=== PATIENT | female | born 1965 | race Caucasian/White ===

== ENCOUNTER 2019-07-07 09:06 | Outpatient (CLI) | payer OTHER, SELFPAY ==
[2019-07-07 09:21] LABS: Basophils Absolute Auto 0.07 K/mm3 (0.00-0.10); Basophils Percent Auto 0.7 % (0.0-1.0); Eosinophils Absolute Auto 0.37 K/mm3 (0.02-0.50); Eosinophils Percent Auto 3.8 % (1.0-6.0); Hematocrit 41.5 % (35.0-49.0); Hemoglobin 12.9 g/dL (12.0-15.0); Immature Granulocyte Absolute 0.04 K/mm3 (0.00-0.00); Immature Granulocyte Percent A 0.4 % (0.0-0.0); Lymphocytes Absolute Auto 1.73 K/mm3 (1.10-4.50); Lymphocytes Percent Auto 17.9 % (18.0-42.0); Mean Corpuscular HGB Conc 31.1 g/dL (32.0-36.0); Mean Corpuscular Hemoglobin 26.7 pg (27.0-31.0); Mean Corpuscular Volume 85.9 fL (78.0-102.0); Mean Platelet Volume 10.1 fl (9.2-11.8); Monocytes Absolute Auto 0.54 K/mm3 (0.10-0.90); Monocytes Percent Auto 5.6 % (2.0-11.0); Neutrophils Absolute Auto 6.9 K/mm3 (1.7-7.2); Neutrophils Percent Auto 71.6 % (50.0-70.0); Platelet Count Result 325 K/mm3 (150-420); Red Blood Count 4.83 M/mm3 (4.20-5.40); Red Cell Distribution Width 14.4 % (11.6-14.4); White Blood Count 9.7 K/mm3 (4.8-10.8)
[2019-07-07 10:33] LABS: Alanine Aminotransferase 20 U/L (14-59); Albumin Level 3.5 g/dL (3.4-5.0); Alkaline Phosphatase 65 U/L (46-116); Anion Gap 15.4 mmol/L (7-16); Aspartate Amino Transferase 15 U/L (15-37); Bilirubin,Total 0.3 mg/dL (0.00-1.00); Blood Urea Nitrogen 11 mg/dL (7-18); Calcium 8.8 mg/dL (8.5-10.1); Carbon Dioxide 31 mmol/L (21-32); Chloride 101 mmol/L (98-108); Cholesterol 145 mg/dL (0-200); Estimated Glomerular Filt Rate > 60; Glucose 146 mg/dL (70-99); HDL Direct 54 mg/dL (40-60); LDL Cholesterol Calculated 68 mg/dL (<130); Osmolality Calculated 298 mOsm/kg (285-295); Potassium 4.4 mmol/L (3.5-5.1); Sodium 143 mmol/L (136-145); Thyroid Stimulating Hormone 2.54 uIU/mL (0.36-3.74); Total Protein 7.3 g/dL (6.4-8.2); Triglycerides 117 mg/dL (0-150)
[2019-07-10 08:35] LABS: Vitamin D 25 Hydroxy 62 ng/mL (30-100)
== END 2019-07-07 09:07 | disposition home or self-care (01) ==
PROVIDERS: PCP Internal Medicine; Visit Provider Internal Medicine
DX: E78.49 Other hyperlipidemia (principal); I10 Essential (primary) hypertension; E11.42 Type 2 diabetes mellitus with diabetic polyneuropathy; E55.9 Vitamin D deficiency, unspecified
CPT/HCPCS: 36415; 80053; 80061; 82306; 83036; 84443; 85025

== ENCOUNTER 2019-11-22 15:12 | Outpatient (CLI) | payer OTHER, SELFPAY ==
--- NOTE | 2019-11-22 15:30 | ECG_ITS ---
Measurements Intervals [place] Rate: 95 P: 56 IA: 180 QRS: -12 QRSD: 86 T: 41 QT: 348 QTc: 438 Interpretive Statements SINUS RHYTHM LOW QRS VOLTAGE IN PRECORDIAL LEADS CANNOT RULE OUT SEPTAL INFARCT, AGE INDETERMINATE INFERIOR INFARCT, AGE INDETERMINATE BASELINE ARTIFACT- II, III, AVF ABNORMAL ECG Electronically Signed On 11-22-2019 15:35:11 CDT by Jimmy Echavarria D.O.
[2019-11-23 07:10] LABS: Basophils Absolute Auto 0.09 K/mm3 (0.00-0.10); Basophils Percent Auto 1.2 % (0.0-1.0); Eosinophils Absolute Auto 0.46 K/mm3 (0.02-0.50); Eosinophils Percent Auto 6.2 % (1.0-6.0); Hematocrit 37.7 % (35.0-49.0); Hemoglobin 11.7 g/dL (12.0-15.0); Immature Granulocyte Absolute 0.03 K/mm3 (0.00-0.00); Immature Granulocyte Percent A 0.4 % (0.0-0.0); Lymphocytes Absolute Auto 2.36 K/mm3 (1.10-4.50); Lymphocytes Percent Auto 31.8 % (18.0-42.0); Mean Corpuscular Hemoglobin 26.8 pg (27.0-31.0); Mean Corpuscular Volume 86.3 fL (78.0-102.0); Mean Platelet Volume 9.8 fl (9.2-11.8); Monocytes Absolute Auto 0.59 K/mm3 (0.10-0.90); Monocytes Percent Auto 7.9 % (2.0-11.0); Neutrophils Absolute Auto 3.9 K/mm3 (1.7-7.2); Neutrophils Percent Auto 52.5 % (50.0-70.0); Platelet Count Result 379 K/mm3 (150-420); Red Blood Count 4.37 M/mm3 (4.20-5.40); Red Cell Distribution Width 13.3 % (11.6-14.4); White Blood Count 7.4 K/mm3 (4.8-10.8)
[2019-11-23 08:11] LABS: Alanine Aminotransferase 23 U/L (14-59); Albumin Level 3.3 g/dL (3.4-5.0); Alkaline Phosphatase 59 U/L (46-116); Anion Gap 8 mmol/L (8-16); Aspartate Amino Transferase 18 U/L (15-37); Bilirubin,Total 0.3 mg/dL (0.00-1.00); Blood Urea Nitrogen 15 mg/dL (7-18); Calcium 8.8 mg/dL (8.5-10.1); Carbon Dioxide 30 mmol/L (21-32); Chloride 103 mmol/L (98-108); Estimated Glomerular Filt Rate > 60; Glucose 152 mg/dL (70-99); Osmolality Calculated 295 mOsm/kg (285-295); Potassium 4.3 mmol/L (3.5-5.1); Sodium 141 mmol/L (136-145)
== END 2019-11-22 15:13 | disposition home or self-care (01) ==
LOC: CHSLAB 15:15
PROVIDERS: PCP Internal Medicine; Visit Provider Anesthesiology
DX: N39.3 Stress incontinence (female) (male) (principal); E11.9 Type 2 diabetes mellitus without complications
CPT/HCPCS: 36415; 80053; 85025; 85610; 87086; 87088; 93005

== ENCOUNTER 2019-11-26 06:25 | Outpatient (CLI) | payer OTHER, SELFPAY ==
[2019-11-27 14:38] LABS: SARS-CoV-2 RNA PCR Negative
== END 2019-11-26 06:26 | disposition home or self-care (01) ==
LOC: CHSLAB 06:27
PROVIDERS: PCP Emergency Medicine; Visit Provider Student in an Organized Health Care Education/Training Program
DX: Z20.828 Contact with and (suspected) exposure to other viral communicable diseases (principal)
CPT/HCPCS: 87635; C9803; U0003

== ENCOUNTER 2019-11-29 00:57 | Day surgery (SDC) | payer OTHER, SELFPAY ==
[2019-11-18 14:58] VITALS: BMI 38.6
--- NOTE | 2019-11-28 07:27 | PM.IMHP ---
H&P: HPI History of Present Illness Date/Time: 11/28/19 07:27 Chief complaint: stress incontinence, uterine prolapse Narrative: Cathi Winters is a 54 year old female with uterine prolapse and stress incontinence [facility] Family History Family History (Updated 08/04/17 @ 00:00 by CONVUSER Niraj) Father Hypertension Family history of type 2 diabetes mellitus Sister Family history of type 2 diabetes mellitus Hypertension Social History Social History Smoking packs per day: 1.5 Smoking cigarettes per day: 30.0 Years smoked: 5 Smoking pack-years: 7.50 Smoking status: Former smoker Tobacco type: cigarettes Additional smoking assessment comments: QUIT 2013 Spiritual care concerns: No Meds Home Medications and Allergies Home Medications Medication Instructions Recorded Confirmed Type cholecalciferol (vitamin D3) 50,000 unit PO WEEKLY 11/18/19 11/18/19 History dulaglutide [Trulicity] 1.5 mg SUBCUT WEEKLY 11/18/19 11/18/19 History duloxetine 30 mg PO DAILY 11/18/19 11/18/19 History empagliflozin [Jardiance] 25 mg PO DAILY 11/18/19 11/18/19 History estradiol-progesterone [Bijuva] 1 cap PO DAILY 11/18/19 11/18/19 History gabapentin 600 mg PO TID PRN 11/18/19 11/18/19 History insulin glargine U-300 conc 100 unit SUBCUT DAILY 11/18/19 11/18/19 History [Toujeo Max U-300 SoloStar] metformin 1,000 mg PO BID 11/18/19 11/18/19 History metoprolol succinate 50 mg PO DAILY 11/18/19 11/18/19 History omeprazole 20 mg PO DAILY PRN 11/18/19 11/18/19 History pravastatin 20 mg PO HS 11/18/19 11/18/19 History triamcinolone acetonide 1 applic TOPICAL DAILY PRN 11/18/19 11/18/19 History Allergies Allergy/AdvReac Type Severity Reaction Status Date / Time No Known Allergies Allergy Verified 11/18/19 14:59 Exam Const: General: no acute distress HENMT: Mouth: Yes moist mucous membranes Eyes: EOM: EOMs intact bilaterally Neck: Neck: supple GI: GI Palp: Yes Soft to palpation : Other: apex at 0 Skin: General skin exam: normal color Neuro: Motor exam (neuro): Normal motor muscle tone present throughout Extrem: General: normal to inspection Psych: Affect: normal affect Assessment and Plan Assessment and plan (1) Uterine prolapse: Code(s): N81.4 - Uterovaginal prolapse, unspecified Status: Acute Assessment and Plan: robotic colpopexy (2) EVELIO (stress urinary incontinence, female): Code(s): N39.3 - Stress incontinence (female) (male) Status: Acute Assessment and Plan: urethral sling
--- NOTE | 2019-11-28 13:13 | WPDANESEPP ---
Anes - Eval Pre Procedure Procedure: Operation Date: 11/29/19 07:30 Proposed Procedures p Robotic Sacrocolpopexy with Urethral Sling - Dickson Main MD s Robotic Supracervical Hysterectomy With Bilateral Salpingectomy - Adan Craig MD Date/Time: 11/28/19 13:13 Pre Op Diagnosis: stress incontinence, uterine prolapse Patient Data Age: 54 Gender: F Height: 1.63 m Weight: 102.06 kg Allergies Allergy/AdvReac Type Severity Reaction Status Date / Time No Known Allergies Allergy Verified 11/18/19 14:59 Home Medications Medication Instructions Recorded Confirmed Type cholecalciferol (vitamin D3) 50,000 unit PO WEEKLY 11/18/19 11/18/19 History dulaglutide [Trulicity] 1.5 mg SUBCUT WEEKLY 11/18/19 11/18/19 History duloxetine 30 mg PO DAILY 11/18/19 11/18/19 History empagliflozin [Jardiance] 25 mg PO DAILY 11/18/19 11/18/19 History estradiol-progesterone [Bijuva] 1 cap PO DAILY 11/18/19 11/18/19 History gabapentin 600 mg PO TID PRN 11/18/19 11/18/19 History insulin glargine U-300 conc 100 unit SUBCUT DAILY 11/18/19 11/18/19 History [Toujeo Max U-300 SoloStar] metformin 1,000 mg PO BID 11/18/19 11/18/19 History metoprolol succinate 50 mg PO DAILY 11/18/19 11/18/19 History omeprazole 20 mg PO DAILY PRN 11/18/19 11/18/19 History pravastatin 20 mg PO HS 11/18/19 11/18/19 History triamcinolone acetonide 1 applic TOPICAL DAILY PRN 11/18/19 11/18/19 History Patient hx anesthesia problems: none Family hx anesthesia problems: none PMFSH Past Medical History Medical History (Updated 11/28/19 @ 13:14 by Tanisha Pedro CRNA) Diabetes GERD (gastroesophageal reflux disease) Hypercholesteremia Hypertension Neuropathy Surgical History Surgical History (Updated 11/28/19 @ 13:16 by Tanisha Pedro CRNA) H/O dilation and curettage History of appendectomy Hx of cholecystectomy Family History Family History (Updated 08/04/17 @ 00:00 by CONVUSER A) Father Hypertension Family history of type 2 diabetes mellitus Sister Family history of type 2 diabetes mellitus Hypertension Social History Social History Smoking packs per day: 1.5 Smoking cigarettes per day: 30.0 Years smoked: 5 Smoking pack-years: 7.50 Smoking status: Former smoker Tobacco type: cigarettes Additional smoking assessment comments: QUIT 2013 Spiritual care concerns: No Exam Day of Procedure 11/28/19 13:13
--- NOTE | 2019-11-28 19:26 | PM.IMHP ---
H&P: HPI History of Present Illness Date/Time: 11/29/19 0713 Chief complaint: stress incontinence, uterine prolapse Narrative: Cathi Winters is a 54 year old female who presented with complaints of vaginal pressure secondary to pelvic organ prolapse. Pt also complained of urinary incontinence. Pt was sent to urogynecology for co-management of urinary symptoms. Pt has had an endometrial ablation in 2005. She denies any vaginal bleeding since that time. Review of Systems Cardiovascular: Cardiovascular: Denies chest pain, Denies leg edema, Denies palpitations, Denies dyspnea and Denies dyspnea on exertion Respiratory: Respiratory: Denies cough, Denies dyspnea and Denies dyspnea on exertion Gastrointestinal: Gastrointestinal: Denies abdominal pain, Denies constipation, Denies diarrhea, Denies nausea and Denies vomiting Genitourinary: Genitourinary: Denies hematuria, Denies urinary frequency, Denies dysuria, Denies pelvic pain, Denies urinary incontinence and Denies vaginal discharge Neurologic: Reports system reviewed and no additional complaints, except as documented Psychiatric: Psychiatric: Reports no additional psychiatric complaints Endocrine: Endocrine: Denies palpitations PMFSH Past Medical History Medical History (Updated 11/28/19 @ 13:14 by Tanisha Pedro CRNA) Diabetes GERD (gastroesophageal reflux disease) Hypercholesteremia Hypertension Neuropathy Surgical History Surgical History (Updated 11/28/19 @ 13:16 by Tanisha Pedro CRNA) H/O dilation and curettage History of appendectomy Hx of cholecystectomy Family History Family History (Updated 08/04/17 @ 00:00 by CONVUSER Niraj) Father Hypertension Family history of type 2 diabetes mellitus Sister Family history of type 2 diabetes mellitus Hypertension Social History Social History Smoking packs per day: 1.5 Smoking cigarettes per day: 30.0 Years smoked: 5 Smoking pack-years: 7.50 Smoking status: Former smoker Tobacco type: cigarettes Additional smoking assessment comments: QUIT 2013 Spiritual care concerns: No Meds Home Medications and Allergies Home Medications Medication Instructions Recorded Confirmed Type cholecalciferol (vitamin D3) 50,000 unit PO WEEKLY 11/18/19 11/29/19 History dulaglutide [Trulicity] 1.5 mg SUBCUT WEEKLY 11/18/19 11/29/19 History duloxetine 30 mg PO DAILY 11/18/19 11/29/19 History empagliflozin [Jardiance] 25 mg PO DAILY 11/18/19 11/29/19 History estradiol-progesterone [Bijuva] 1 cap PO DAILY 11/18/19 11/29/19 History gabapentin 600 mg PO TID PRN 11/18/19 11/29/19 History insulin glargine U-300 conc 100 unit SUBCUT DAILY 11/18/19 11/29/19 History [Toujeo Max U-300 SoloStar] metformin 1,000 mg PO BID 11/18/19 11/29/19 History metoprolol succinate 50 mg PO DAILY 11/18/19 11/29/19 History omeprazole 20 mg PO DAILY PRN 11/18/19 11/29/19 History pravastatin 20 mg PO HS 11/18/19 11/29/19 History triamcinolone acetonide 1 applic TOPICAL DAILY PRN 11/18/19 11/29/19 History Allergies Allergy/AdvReac Type Severity Reaction Status Date / Time No Known Allergies Allergy Verified 11/29/19 06:04 Exam Const: General: no acute distress Eyes: EOM: EOMs intact bilaterally Neck: Neck: supple Thyroid: thyroid normal Chest: Breast/axilla inspection: normal inspection of the breasts Breast/axilla palpation: normal palpation of the breasts, normal palpation of the axillae and no axillary lymphadenopathy Resp: Effort & Inspection: normal respiratory effort Auscultation: clear to auscultation bilaterally Cardio: Rate: regular rate Rhythm: regular rhythm GI: Inspection: non-distended GI Palp: Yes Soft to palpation, No Tenderness to palpation present (GI) and No Guarding due to palpation present (GI) Auscultation: normal bowel sounds : General: No bladder normal to palpation External Female Exam: normal external appearance Speculum Exam - Vagina: normal vaginal discharge, vagina atrophic and
[2019-11-29] VITALS (17 sets, daily range): BP systolic 95–146; BP diastolic 49–74; PULSE 72–99; RESP 14–19; TEMP 36.2–36.8; O2SAT 93–100
[2019-11-29] MEDS: LACTATED RINGERS 1,000 ML 30 ML IV CONT ×3 (06:40→11:36)
[2019-11-29 06:52] LABS: Glucose Point of Care 84 (65-105)
--- NOTE | 2019-11-29 07:01 | P.PNAN_ITS ---
Anes - Eval Final PreProcedure Day of Procedure 11/29/19 07:01 Patient weight: obese Heart: regular rate and rhythm Lungs: clear to auscultation Airway: Mallampati scale class II Neurological: alert and oriented Last oral intake: >/= 8 hours ASA classification: III Emergent: no Anesthetic plan: proceed Anesthesia type and monitoring: general ETT and standard monitoring Informed Consent: The patient's anesthetic plan and its attendant risks and be nefits were discussed with the patient/family/POA. Questions were solicited and answers provided to the satisfaction of the patient/family/POA.
--- NOTE | 2019-11-29 07:24 | WPDHPUPDATE1 ---
History and Physical Update Update Date/Time: 11/29/19 07:24 History and Physical has been reviewed, including an updated exam of the patient. There are NO changes in the patient's condition. Risks, benefits, and alternatives have been discussed and questions answered. Patient agrees to proceed with procedure.
--- NOTE | 2019-11-29 07:31 | WPDHPUPDATE1 ---
History and Physical Update Update Date/Time: 11/29/19 07:31 54 yo F who presents for robotic assisted supracervical TLH/BSO for pelvic organ prolapse. History and Physical has been reviewed, including an updated exam of the patient. There are NO changes in the patient's condition. Risks, benefits, and alternatives have been discussed and questions answered. Patient agrees to proceed with procedure.
[2019-11-29] MEDS: metroNIDAZOLE 500 MG/ISO 100ML 500 MG/100 ML BAG 100 MG IVPB ×3 (07:36→23:40)
[2019-11-29] MEDS: ceFAZolin 2 GM/D5W 50 ML 2 GM/50 ML BAG IVPB (07:36)
[2019-11-29] MEDS: BUPIVACAINE/EPINEPHRINE 0.25% 50 ML VIAL INFILTRATE (08:39)
--- NOTE | 2019-11-29 08:54 | PM.PROC ---
Procedure Note - Detailed Date of procedure: 11/29/19 Pre-op diagnosis: stress incontinence, uterine prolapse Procedure performed: Robotic assisted total laparoscopic hysterectomy bilateral salpingo-oophorectomy Description of procedure: PROCEDURE IN DETAIL: After the patient was appropriately consented she was taken to the operating room where she was transferred to the table in a dorsal supine position. General anesthesia was then induced with endotracheal intubation. The patient was transferred to a dorsal lithotomy position using adjustable yellow-fin stirrups. Her position was adjusted for appropriate support of her lower back and lower extremities. The patient was prepped and draped. A transurethral harper catheter was place. The laparoscopic port site placement and intra-abdominal entry was performed by Dr. Main, please see his dictation for details. Once all ports were placed and the robot was docked, attention was then turned the pelvis. The left round ligament was divided and the pararectal and paravesicle spaces developed, identifying the course of the ureter. The infundibulopelvic ligaments were skeletonized, triply coagulated and then transected with monopolar curtis away from the course of the ureter. The posterior aspect of the broad ligament was then skeletonized down to the level of the internal cervical os, mobilizing the ureter laterally. The bladder flap was then created sharply. The ipsilateral uterine artery was skeletonized, bipolar cauterized and transected. A similar procedure was performed on the contralateral side, developing the pelvic spaces, coagulating and dividing the IP away from the ureter, completing the bladder flap, and skeletonizing, ligating, and dividing the uterine artery on this side. An EAA sizer was placed in the anterior vaginal cul de sac to identify the cervical isthmus. Colpotomy was then made in the mid isthmic portion of the cervix. A circumferential colpotomy was made using monopolar current. The uterus, bilateral tubes and ovaries were transected from the cervical stump. The cervical stump was cauterized with monopolar engery to ensure hemostasis. The remainder of the procedure was performed by Dr. Main. Please see his full dictation for details. The patient tolerated my portion of the procedure well. Sponge, needle and instrument counts were correct x 2. Ancef was given for antimicrobial prophylaxis. The patient had SCD's on for VTE prophylaxis during the entire procedure. Anesthesia: GETA Surgeon: Adan Craig MD Estimated blood loss (mL): 25 Urine output (mL): 150 Drains: No Packing: No Pathology: yes (uterus, bilateral fallopian tubes, bilateral ovaries ) Complications: No immediate complications Condition: stable Disposition: PACU
--- NOTE | 2019-11-29 11:00 | PM.PROC ---
Procedure Note - Detailed Date of procedure: 11/29/19 Pre-op diagnosis: stress incontinence, uterine prolapse Uterine prolapse Stress urinary incontinence Post-op diagnosis: same Procedure performed: Robotic assisted laparoscopic sacral colpopexy Mid urethral sling (transobturator sling) Cystoscopy Description of procedure: She understood the risks of bleeding, infection, damage to surrounding organs, bowel injury, bowel obstruction, recurrence of prolapse, persistent or recurrent stress incontinence, mesh related complications including exposure and extrusion, diskitis, postoperative voiding dysfunction including incontinence and retention, hip and leg pain, dyspareunia, and she agrees to proceed. She was correctly identified and informed consent was obtained. She was brought to the operating room. She was given general anesthesia. She was placed in the dorsal lithotomy position. All pressure points were padded. She was given appropriate perioperative antibiotics. Time-out performed. I anesthetized the skin 3 fingerbreadths cephalad to the umbilicus. I incised the skin. I dissected down to locate the fascia. I grasped the fascia with Eliseo clamps. I entered the fascia sharply. I placed Vicryl sutures for later fascial closure. I placed a midline trocar. Under direct vision 2 additional trocars were placed on the right and left upper quadrant. There was some adhesions of omentum to the anterior abdominal wall that were taken down bluntly. She was placed in steep Trendelenburg and the robot was docked. Her clinical veterinarian performed the portion of the procedure and left the specimen and a sac which was extracted. I then sat at the console. With the Sizer in the vagina I created a plane on the anterior and posterior vaginal wall. This was done for several cm taking great care not to injure the vagina, bladder, or rectum. I introduced the mesh into the abdomen. I sewed the anterior leaflet of mesh on the anterior vaginal wall and posterior leaf of the mesh on the posterior vaginal wall with several Ira-Michael sutures taking great care not to go through and through. I then reflected the colon laterally. I opened up the posterior peritoneum over the sacral promontory. I carried this into the cul-de-sac. I kept the ureters lateral. I freed up the edges. I located the anterior longitudinal ligament of the sacrum. I tensioned the mesh appropriately. I did a vaginal exam to ensure prolapse reduction without undue tension. I then sewed the proximal leaflet of mesh onto the ligament with 3 sutures of 2 0 Ira-Michael. Next the mass was meticulously retroperitonealized with a running 2 0 Monocryl suture. I allowed the colon to go back into its normal anatomic location. There is no signs of any impingement or stricturing. The abdomen was exited. Fascia was closed. Skin was closed with Monocryl and glue. She was repositioned and prepped for urethral sling. I marked out the thigh incisions. I anesthetize the skin and made those incisions. I anesthetized the anterior vaginal wall over the mid urethra. I made a 1 cm incision. I dissected out laterally taking great care not to injure the urethra or the vaginal wall. I next passed the helical trocars to 1st on the left and then on the right. This was done from the thigh incision towards the vaginal incision. The sling was connected to the trocars and brought out through the thigh incision. I tensioned the sling appropriately. I cut and removed the plastic sheaths. I then closed the incision with 2 0 Vicryl. I then performed cystoscopy. The bladder is examined. There was no tumors, stones, foreign bodies, surgical artifact. A guidewire was placed up both ureters document patency. There is no surgical artifact in the urethra. Catheter was then replaced. She was awakened and transferred to the PACU in stable condition. Anesthesia: GLMA Surgeon: Dickson Main MD Drains: Yes (Bragg catheter) Packing:
[2019-11-29 11:22] LABS: Glucose Point of Care 152 (65-105)
--- NOTE | 2019-11-29 12:23 | PC.NURSE ---
This patient, Cathi Winters, was received from PACU per bed to room 289. Patient oriented to unit policies and routines
[2019-11-29] MEDS: KCL 20 MEQ/D5/0.45% SOD CHL 1,000 ML 100 ML IV CONT (12:51)
[2019-11-29] MEDS: ENOXAPARIN 30 MG/0.3 ML SYRINGE SUB-Q (16:49)
[2019-11-29] MEDS: KETOROLAC 15 MG/ML VIAL (*BKC) IV PUSH ×2 (16:56→23:05)
[2019-11-29 17:23] LABS: Glucose Point of Care 188 (65-105)
[2019-11-29] MEDS: metFORMIN HCL 500 MG TABLET 1000 MG PO (17:25)
[2019-11-29] MEDS: PRAVASTATIN SODIUM 20 MG TABLET PO (21:23)
[2019-11-30 05:40] VITALS: BP 105/61; PULSE 89; RESP 16; TEMP 36.9
[2019-11-30] MEDS: KETOROLAC 15 MG/ML VIAL (*BKC) IV PUSH (05:43)
--- NOTE | 2019-11-30 07:28 | PM.DS ---
DS: Admitting Diagnosis Admitting Diagnosis Admitting Diagnosis: stress incontinence, uterine prolapse DS: Summary Hospital Course Hospital Course: Cathi Winters was admitted after robotic assisted total laparoscopic hysterectomy and bilateral salpingo-oophorectomy with sacrocolpopexy and mid urethral sling for pelvic organ prolapse and urinary incontinence. The above procedure was performed with no complications. She is doing well post op. She states her pain is well controlled with PO medications. She denies any vaginal bleeding. She is ambulating up to the chair. Her harper catheter was removed. She is tolerating PO without N/V. She reports passing flatus. Status at Discharge Overall status at discharge: patient is progressing back to baseline Time Spent with Patient Time attestation: Total time spent providing and/or coordinating discharge services: Time spent: Less than 30 minutes Exam Const: General: comfortable and no acute distress Limitations: no limitations Resp: Effort & Inspection: normal respiratory effort Auscultation: clear to auscultation bilaterally Cardio: Rate: regular rate Rhythm: regular rhythm GI: Inspection: non-distended GI Palp: Yes Soft to palpation, Yes Tenderness to palpation present (GI) (milder tenderness to deep palpation) and No Guarding due to palpation present (GI) Auscultation: normal bowel sounds Other: incisions C/D/I covered with dermabond Urinary Catheter: Urinary Catheter: urine clear Skin: General skin exam: normal color Extrem: General: normal to inspection Psych: Mental Status: mental status grossly normal Affect: normal affect DS: Data Data Completed and Pending Pending studies at discharge: Pending at discharge 11/29/19 08:26 Surgical [PTH] Routine Labs on day of discharge: Labs from last 24 hours 11/29/19 11/29/19 11/29/19 17:21 11:20 06:47 POC Capillary Glucose 188 H 152 H Blood Type A Positive Antibody Screen Negative Discharge Plan Discharge Consulting providers: Adan Craig Patient Disposition: Home, Self-Care Discharge Instructions: No lifting >20lb, exercise for 6 weeks No tub bath or pool for 2 weeks No intercourse for 6 weeks Stand Alone Forms: General Discharge Instructions Follow-up/Referrals: Dickson Main MD [Physician] - ( in 1 week and in 6 weeks) Discharge Medications: New hydrocodone-acetaminophen [Retsof] 5-325 mg tablet 1 tablet PO Q4H PRN (Reason: pain) Qty: 20 RF: 0 docusate sodium [Colace] 100 mg capsule 100 mg PO BID Qty: 60 RF: 0 Continued gabapentin 600 mg tablet 600 mg PO TID PRN (Reason: Pain) RF: 0 metoprolol succinate 50 mg tablet extended release 24 hr 50 mg PO DAILY RF: 0 metformin 1,000 mg tablet 1,000 mg PO BID RF: 0 omeprazole 20 mg capsule,delayed release(DR/EC) 20 mg PO DAILY PRN (Reason: Acid Reflux) RF: 0 pravastatin 20 mg tablet 20 mg PO HS RF: 0 triamcinolone acetonide 0.1 % Lotion 1 applic TOPICAL DAILY PRN (Reason: Rash) RF: 0 duloxetine 30 mg capsule,delayed release(DR/EC) 30 mg PO DAILY RF: 0 cholecalciferol (vitamin D3) 1,250 mcg (50,000 unit) capsule 50,000 unit PO WEEKLY RF: 0 Jardiance 25 mg tablet 25 mg PO DAILY RF: 0 Trulicity 1.5 mg/0.5 mL pen injector 1.5 mg SUBCUT WEEKLY RF: 0 Toujeo Max U-300 SoloStar 300 unit/mL (3 mL) insulin pen 100 unit SUBCUT DAILY RF: 0 Bijuva 1-100 mg capsule 1 cap PO DAILY RF: 0 Primary Care Provider: John,Hector Plascencia Attending physician on admission: Dickson Main
[2019-11-30 07:35] VITALS: BP 102/57; PULSE 82; RESP 16; TEMP 36.1; O2SAT 100
--- NOTE | 2019-11-30 07:43 | WPDANESPN ---
Anes - Prog Note Post-Op Date/Time: 11/30/19 07:43 Cardiovascular status: normal Respiratory status: normal Airway patency: baseline Mental status: baseline Post-Op hydration status: normal Vital Signs: Last Vital Signs Temp 36.9 C 11/30/19 05:40 Pulse 89 11/30/19 05:40 Resp 16 11/30/19 05:40 BP 105/61 11/30/19 05:40 Pulse Ox 100 11/29/19 15:00 I/O: Intake & Output 11/29/19 11/29/19 11/30/19 15:59 23:59 07:59 Intake Total 600 2575 100 Output Total 400 1975 800 Balance 200 600 -700 11/29/19 11/29/19 11/29/19 06:47 11:20 17:21 POC Capillary Glucose 152 H 188 H Blood Type A Positive Antibody Screen Negative Post-procedural complaints: none Patient Feedback: Patient satisfied with anesthetic care.
[2019-11-30 08:12] LABS: Glucose Point of Care 125 (65-105)
[2019-11-30] MEDS: GABAPENTIN 300 MG CAPSULE 600 MG PO (08:27)
[2019-11-30] MEDS: metFORMIN HCL 500 MG TABLET 1000 MG PO (08:28)
[2019-11-30] MEDS: DULoxetine HCL 30 MG CAPSULE.DR PO (08:29)
[2019-11-30 08:30] VITALS: PULSE 70
[2019-11-30] MEDS: METOPROLOL SUCCINATE EXT REL 50 MG TABCR PO (08:30)
[2019-11-30] MEDS: ENOXAPARIN 30 MG/0.3 ML SYRINGE SUB-Q (08:31)
[2019-11-30] MEDS: metroNIDAZOLE 500 MG/ISO 100ML 500 MG/100 ML BAG 100 MG IVPB (08:53)
== END 2019-11-30 12:25 | disposition home or self-care (01) ==
LOC: ANHSURGERY 07:45 → ANHOB2 12:17
PROVIDERS: Student in an Organized Health Care Education/Training Program; PCP Internal Medicine; Visit Provider Urology
PROC: (CPT 57425; principal; 2019-11-29 07:30)
PROC: (CPT 58571; 2019-11-29 07:30)
DX: N81.4 Uterovaginal prolapse, unspecified (principal); N39.3 Stress incontinence (female) (male); D25.1 Intramural leiomyoma of uterus; N83.8 Other noninflammatory disorders of ovary, fallopian tube and broad ligament; Z98.51 Tubal ligation status; E11.40 Type 2 diabetes mellitus with diabetic neuropathy, unspecified; Z79.84 Long term (current) use of oral hypoglycemic drugs; I10 Essential (primary) hypertension; E78.00 Pure hypercholesterolemia, unspecified; K21.9 Gastro-esophageal reflux disease without esophagitis; Z87.891 Personal history of nicotine dependence; Z79.899 Other long term (current) drug therapy
CPT/HCPCS: 57288; 57425; 58571; S2900; 36415; 86850; 86900; 86901; 88307; 99199; A9270; C1771; C1781; J0690; J1100; J1650; J1885; J2250; J2405; J2704; J2710; J3010; J3480; J7030; J7120

== ENCOUNTER 2020-01-19 09:08 | Outpatient (CLI) | payer OTHER, SELFPAY ==
--- NOTE | ~2020-01-19 | MM_ITS ---
EXAMINATION: MM screening [place] BI w ila HISTORY: Screening mammogram TECHNIQUE: Craniocaudal and mediolateral oblique 3-D tomosynthesis images were obtained and synthetic 2-D images were generated. CAD analysis was submitted and interpreted. COMPARISON: 01/15/2019, 12/31/2017, 12/09/2016 bilateral digital screening mammogram examinations BREAST PARENCHYMAL COMPOSITION: There are scattered areas of fibroglandular density. FINDINGS: There is no evidence of suspicious mass, calcification, or architectural distortion to sugg est malignancy in either breast. There has been no suspicious interval change. IMPRESSION: 1. No mammographic evidence of malignancy. 2. Recommend routine screening mammography in one year. BI-RADS Category 1: Negative Reviewed, dictated and finalized at location A.
== END 2020-01-19 09:09 | disposition home or self-care (01) ==
LOC: CHSIMG 09:11
PROVIDERS: PCP Internal Medicine; Visit Provider Student in an Organized Health Care Education/Training Program
DX: Z12.31 Encounter for screening mammogram for malignant neoplasm of breast (principal)
CPT/HCPCS: 77063; 77067

== ENCOUNTER 2020-03-14 07:08 | Outpatient (CLI) | payer OTHER, SELFPAY ==
[2020-03-14 07:19] LABS: Basophils Absolute Auto 0.06 K/mm3 (0.00-0.10); Basophils Percent Auto 0.8 % (0.0-1.0); Eosinophils Absolute Auto 0.33 K/mm3 (0.02-0.50); Eosinophils Percent Auto 4.5 % (1.0-6.0); Hematocrit 36.6 % (35.0-49.0); Immature Granulocyte Absolute 0.03 K/mm3 (0.00-0.00); Immature Granulocyte Percent A 0.4 % (0.0-0.0); Lymphocytes Absolute Auto 2.05 K/mm3 (1.10-4.50); Lymphocytes Percent Auto 27.9 % (18.0-42.0); Mean Corpuscular HGB Conc 30.1 g/dL (32.0-36.0); Mean Corpuscular Hemoglobin 25.3 pg (27.0-31.0); Mean Corpuscular Volume 84.1 fL (78.0-102.0); Mean Platelet Volume 10.2 fl (9.2-11.8); Monocytes Absolute Auto 0.52 K/mm3 (0.10-0.90); Monocytes Percent Auto 7.1 % (2.0-11.0); Neutrophils Absolute Auto 4.4 K/mm3 (1.7-7.2); Neutrophils Percent Auto 59.3 % (50.0-70.0); Platelet Count Result 341 K/mm3 (150-420); Red Blood Count 4.35 M/mm3 (4.20-5.40); White Blood Count 7.3 K/mm3 (4.8-10.8)
[2020-03-14 07:49] LABS: Hemoglobin A1C 8.6 % (<5.7)
[2020-03-14 08:42] LABS: Alanine Aminotransferase 17 U/L (14-59); Albumin Level 3.3 g/dL (3.4-5.0); Alkaline Phosphatase 63 U/L (46-116); Anion Gap 7 mmol/L (8-16); Aspartate Amino Transferase 11 U/L (15-37); Bilirubin,Total 0.3 mg/dL (0.00-1.00); Blood Urea Nitrogen 17 mg/dL (7-18); Calcium 8.5 mg/dL (8.5-10.1); Carbon Dioxide 30 mmol/L (21-32); Chloride 103 mmol/L (98-108); Estimated Glomerular Filt Rate > 60; Glucose 106 mg/dL (70-99); Osmolality Calculated 291 mOsm/kg (285-295); Potassium 4.1 mmol/L (3.5-5.1); Sodium 140 mmol/L (136-145); Thyroid Stimulating Hormone 1.46 uIU/mL (0.36-3.74); Total Protein 6.9 g/dL (6.4-8.2); Vitamin B12 195 pg/mL (193-986)
[2020-03-17 11:58] LABS: Vitamin D 25 Hydroxy 73 ng/mL (30-100)
== END 2020-03-14 07:09 | disposition home or self-care (01) ==
LOC: CHSLAB 07:11
PROVIDERS: PCP Internal Medicine; Visit Provider Internal Medicine
DX: E78.49 Other hyperlipidemia (principal); I10 Essential (primary) hypertension; E11.42 Type 2 diabetes mellitus with diabetic polyneuropathy; E55.9 Vitamin D deficiency, unspecified; E53.8 Deficiency of other specified B group vitamins
CPT/HCPCS: 36415; 80053; 82306; 82607; 83036; 84443; 85025

== ENCOUNTER 2020-04-18 08:14 | Outpatient (CLI) | payer OTHER, SELFPAY ==
[2020-04-18] MEDS: CYANOCOBALAMIN INJ 1,000 MCG/ML VIAL 1000 MCG IM (08:38)
== END 2020-04-18 08:15 | disposition home or self-care (01) ==
PROVIDERS: PCP Internal Medicine; Visit Provider Internal Medicine
DX: E53.8 Deficiency of other specified B group vitamins (principal)
CPT/HCPCS: 96372; J3420

== ENCOUNTER 2020-05-19 08:07 | Outpatient (CLI) | payer OTHER, SELFPAY ==
[2020-05-19] MEDS: CYANOCOBALAMIN INJ 1,000 MCG/ML VIAL 1000 MCG IM (10:05)
== END 2020-05-19 08:08 | disposition home or self-care (01) ==
LOC: CHSTREATRM 08:09
PROVIDERS: PCP Internal Medicine; Visit Provider Internal Medicine
DX: E53.8 Deficiency of other specified B group vitamins (principal)
CPT/HCPCS: 96372; J3420

== ENCOUNTER 2020-06-23 13:00 | Outpatient (CLI) | payer OTHER, SELFPAY ==
[2020-06-23] MEDS: CYANOCOBALAMIN INJ 1,000 MCG/ML VIAL 1000 MCG IM (13:55)
== END 2020-06-23 13:01 | disposition home or self-care (01) ==
PROVIDERS: PCP Internal Medicine; Visit Provider Internal Medicine
DX: E53.8 Deficiency of other specified B group vitamins (principal)
CPT/HCPCS: 96372; J3420

== ENCOUNTER 2020-07-25 10:01 | Outpatient (CLI) | payer OTHER, SELFPAY ==
[2020-07-25] MEDS: CYANOCOBALAMIN INJ 1,000 MCG/ML VIAL 1000 MCG IM (10:31)
== END 2020-07-25 10:02 | disposition home or self-care (01) ==
PROVIDERS: PCP Internal Medicine; Visit Provider Internal Medicine
DX: E53.8 Deficiency of other specified B group vitamins (principal)
CPT/HCPCS: 96372; J3420

== ENCOUNTER 2020-08-30 07:17 | Outpatient (CLI) | payer OTHER, SELFPAY ==
[2020-08-30] MEDS: CYANOCOBALAMIN INJ 1,000 MCG/ML VIAL 1000 MCG IM (10:34)
== END 2020-08-30 07:18 | disposition home or self-care (01) ==
LOC: CHSTREATRM 07:19
PROVIDERS: PCP Internal Medicine; Visit Provider Internal Medicine
DX: E53.8 Deficiency of other specified B group vitamins (principal)
CPT/HCPCS: 96372; J3420

== ENCOUNTER 2020-10-13 07:49 | Outpatient (CLI) | payer OTHER, SELFPAY ==
[2020-10-13] MEDS: CYANOCOBALAMIN INJ 1,000 MCG/ML VIAL 1000 MCG IM (08:32)
== END 2020-10-13 07:50 | disposition home or self-care (01) ==
LOC: CHSLAB 07:51 → CHSTREATRM 08:20
PROVIDERS: PCP Internal Medicine; Visit Provider Internal Medicine
DX: E53.8 Deficiency of other specified B group vitamins (principal)
CPT/HCPCS: 96372; J3420

== ENCOUNTER 2021-02-05 10:08 | Outpatient (CLI) | payer OTHER, SELFPAY ==
[2021-02-05 10:21] LABS: Basophils Absolute Auto 0.09 K/mm3 (0.00-0.10); Basophils Percent Auto 1.4 % (0.0-1.0); Eosinophils Absolute Auto 0.51 K/mm3 (0.02-0.50); Eosinophils Percent Auto 8.1 % (1.0-6.0); Hematocrit 45.4 % (35.0-49.0); Hemoglobin 14.3 g/dL (12.0-15.0); Immature Granulocyte Absolute 0.03 K/mm3 (0.00-0.00); Immature Granulocyte Percent A 0.5 % (0.0-0.0); Lymphocytes Percent Auto 23.8 % (18.0-42.0); Mean Corpuscular HGB Conc 31.5 g/dL (32.0-36.0); Mean Corpuscular Hemoglobin 27.9 pg (27.0-31.0); Mean Corpuscular Volume 88.5 fL (78.0-102.0); Mean Platelet Volume 10.1 fl (9.2-11.8); Monocytes Absolute Auto 0.53 K/mm3 (0.10-0.90); Monocytes Percent Auto 8.4 % (2.0-11.0); Neutrophils Absolute Auto 3.6 K/mm3 (1.7-7.2); Neutrophils Percent Auto 57.8 % (50.0-70.0); Platelet Count Result 378 K/mm3 (150-420); Red Blood Count 5.13 M/mm3 (4.20-5.40); Red Cell Distribution Width 13.8 % (11.6-14.4); White Blood Count 6.3 K/mm3 (4.8-10.8)
[2021-02-05 10:30] LABS: Creatinine Urine 84.15 mg/dL (40-278); MALB Creatinine Ratio 15.4 mg/g (0-30); Microalbumin Urine Random < 13.0 mg/L
[2021-02-05 10:31] LABS: Hemoglobin A1C 8.5 % (<5.7)
[2021-02-05 11:04] LABS: Alanine Aminotransferase 32 U/L (14-59); Albumin Level 3.5 g/dL (3.4-5.0); Alkaline Phosphatase 68 U/L (46-116); Anion Gap 9 mmol/L (8-16); Aspartate Amino Transferase 23 U/L (15-37); Bilirubin,Total 0.3 mg/dL (0.00-1.00); Blood Urea Nitrogen 17 mg/dL (7-18); Calcium 9.3 mg/dL (8.5-10.1); Carbon Dioxide 30 mmol/L (21-32); Chloride 100 mmol/L (98-108); Cholesterol 146 mg/dL (0-200); Estimated Glomerular Filt Rate 58; Glucose 182 mg/dL (70-99); HDL Direct 52 mg/dL (40-60); LDL Cholesterol Calculated 65 mg/dL (<130); Osmolality Calculated 294 mOsm/kg (285-295); Potassium 4.6 mmol/L (3.5-5.1); Sodium 139 mmol/L (136-145); Total Protein 7.3 g/dL (6.4-8.2); Triglycerides 143 mg/dL (0-150); Vitamin B12 294 pg/mL (193-986)
[2021-02-07 13:38] LABS: Vitamin D 25 Hydroxy 88 ng/mL (30-100)
== END 2021-02-05 10:09 | disposition home or self-care (01) ==
LOC: CHSLAB 10:10
PROVIDERS: PCP Internal Medicine; Visit Provider Internal Medicine
DX: E11.42 Type 2 diabetes mellitus with diabetic polyneuropathy (principal); E55.9 Vitamin D deficiency, unspecified; E78.49 Other hyperlipidemia; I10 Essential (primary) hypertension
CPT/HCPCS: 36415; 80053; 80061; 82043; 82306; 82607; 83036; 85025

== ENCOUNTER 2021-03-06 10:48 | Outpatient (CLI) | payer OTHER, SELFPAY ==
[2021-03-06] MEDS: CYANOCOBALAMIN INJ 1,000 MCG/ML VIAL 1000 MCG IM (12:25)
--- NOTE | 2021-03-06 12:26 | PC.NURSE ---
Patient tolerated B12 injection well. No concerns voiced. Will return next month.
== END 2021-03-06 10:49 | disposition home or self-care (01) ==
PROVIDERS: PCP Internal Medicine; Visit Provider Internal Medicine
DX: E53.8 Deficiency of other specified B group vitamins (principal)
CPT/HCPCS: 96372; J3420

== ENCOUNTER 2021-04-12 11:36 | Outpatient (CLI) | payer OTHER, SELFPAY ==
--- NOTE | 2021-04-16 13:57 | WPDHOLTEREM ---
Holter/Event Monitor Holter/Event Monitor Date of procedure: 04/16/21 Holter/Event Procedure: 48 Hr Holter Monitor Indications: Palpitations Conclusion: 1. 48 hour holter monitor on 04/02/21. 2. Underlying rhythm is sinus rhythm. HR range 66-124 bpm; average HR 94 bpm. 3. There are 11 premature supraventricular complexes and 2 supraventricular couplets. No supraventricular tachycardia. 4. There are 11 premature ventricular complexes. There is one episode of ventricular tachycardia at average HR of 150 bpm lasting 6 beats at 08:28. 5. No sinoatrial or atrioventricular blocks. No significant pauses greater than 2 seconds. 6. Patient reports symptoms of tiredness, chest pain, increase heart rate, heart racing which demonstrate sinus rhythm, HR range 81-111 bpm.
== END 2021-04-12 11:37 | disposition home or self-care (01) ==
LOC: CHSLAB 11:39
PROVIDERS: PCP Internal Medicine; Visit Provider Internal Medicine
DX: R00.2 Palpitations (principal)
CPT/HCPCS: 93225; 93226

== ENCOUNTER 2021-04-25 09:35 | Outpatient (CLI) | payer OTHER, SELFPAY ==
--- NOTE | 2021-04-25 09:55 | ECHO_ITS ---
Patient Info Name: Cathi Winters Age: 56 years : 1965 Gender: Female Ht: 64 in Wt: 225 lbs BSA: 2.20 m2 HR: 79 bpm BP: 149 / 69 mmHg Technical Quality: Good Exam Date: 04/25/2021 10:40 AM Exam Location: [facility] Patient Status: Outpatient Admit Date: 04/25/2021 Staff Ordering Physician: John, Hector Plascencia MD Group Chief Operator: Supriya Best Attending Provider: John, Hector Plascencia MD Referring Physician: John ROSADO; Exam Type: CA echo doppler color flow Study Info Indications R00.2 - Palpitations Complete two-dimensional, color flow and Doppler transthoracic echocardiogram is performed. Summary 1. Complete two-dimensional, color flow and Doppler transthoracic echocardiogram is performed. 2. Left ventricular chamber dimension is normal. 3. Left ventricular systolic function is normal, estimated at 60-65%. 4. The left ventricular diastolic function is grade I diastolic dysfunction. 5. No pulmonary hypertension, estimated pulmonary arterial systolic pressure is 24 mmHg. Left Ventricle Tissue doppler is not performed. Left ventricular chamber dimension is normal. Left ventricular systolic function is normal, estimated at 60-65%. The left ventricular diastolic function is grade I diastolic dysfunction. Right Ventricle Right ventricular systolic function is normal and with normal TAPSE 2.0 cm. Right ventricular chamber dimension is normal. Left Atria Left atrial chamber dimension is normal. Right Atria Right atrial chamber dimension is normal. Aortic Valve The aortic valve is trileaflet. There is no aortic valve stenosis. There is no aortic valve regurgitation. Pulmonic Valve There is no pulmonic regurgitation. Mitral Valve There is no mitral valve stenosis. There is no mitral valve regurgitation. Tricuspid Valve There is no tricuspid valve regurgitation. No pulmonary hypertension, estimated pulmonary arterial systolic pressure is 24 mmHg. Pericardium/Pleural There is no pericardial effusion. Inferior Vena Cava Normal inferior vena cava with >50% collapse upon inspiration consistent with normal right atrial pressure, 5 mmHg. Aorta The aortic root size at the sinus of Valsalva is normal. Left Ventricular Outflow Tract Name Value Normal LVOT 2D LVOT Diameter 2.0 cm LVOT Doppler LVOT Peak Velocity 129 cm/s LVOT Peak Gradient 7 mmHg LVOT Mean Gradient 4 mmHg LVOT VTI 27 cm LVOT VTI/AV VTI Ratio 0.8 LVOT Stroke Volume 84 ml Mitral Valve Name Value Normal MV Doppler MV Decel Brooks 341 cm/s2 MV PHT 70 ms MV Area (PHT) 3.1 cm2 4.0-5.0 MV Regu
[2021-04-25] MEDS: CYANOCOBALAMIN INJ 1,000 MCG/ML VIAL 1000 MCG IM (13:12)
== END 2021-04-25 09:36 | disposition home or self-care (01) ==
LOC: CHSTREATRM 09:37
PROVIDERS: PCP Internal Medicine; Visit Provider Internal Medicine
DX: E53.8 Deficiency of other specified B group vitamins (principal); R00.2 Palpitations
CPT/HCPCS: 93306; 96372; J3420

== ENCOUNTER 2021-05-29 13:00 | Outpatient (CLI) | payer OTHER, SELFPAY ==
[2021-05-29 13:22] LABS: Basophils Absolute Auto 0.09 K/mm3 (0.00-0.10); Basophils Percent Auto 1.2 % (0.0-1.0); Eosinophils Absolute Auto 0.38 K/mm3 (0.02-0.50); Hematocrit 38.7 % (35.0-49.0); Hemoglobin 12.3 g/dL (12.0-15.0); Immature Granulocyte Absolute 0.03 K/mm3 (0.00-0.00); Immature Granulocyte Percent A 0.4 % (0.0-0.0); Lymphocytes Absolute Auto 2.14 K/mm3 (1.10-4.50); Mean Corpuscular HGB Conc 31.8 g/dL (32.0-36.0); Mean Corpuscular Hemoglobin 28.1 pg (27.0-31.0); Mean Corpuscular Volume 88.4 fL (78.0-102.0); Mean Platelet Volume 10.6 fl (9.2-11.8); Monocytes Absolute Auto 0.53 K/mm3 (0.10-0.90); Monocytes Percent Auto 6.9 % (2.0-11.0); Neutrophils Absolute Auto 4.5 K/mm3 (1.7-7.2); Neutrophils Percent Auto 58.5 % (50.0-70.0); Platelet Count Result 367 K/mm3 (150-420); Red Blood Count 4.38 M/mm3 (4.20-5.40); Red Cell Distribution Width 14.3 % (11.6-14.4); White Blood Count 7.6 K/mm3 (4.8-10.8)
[2021-05-29 13:29] LABS: Creatinine Urine 87.37 mg/dL (40-278); MALB Creatinine Ratio 14.8 mg/g (0-30); Microalbumin Urine Random < 13.0 mg/L
[2021-05-29 13:30] LABS: Hemoglobin A1C 8.4 % (<5.7)
[2021-05-29] MEDS: CYANOCOBALAMIN INJ 1,000 MCG/ML VIAL 1000 MCG IM (14:12)
[2021-05-29 14:34] LABS: Alanine Aminotransferase 25 U/L (14-59); Albumin Level 3.3 g/dL (3.4-5.0); Alkaline Phosphatase 58 U/L (46-116); Anion Gap 9 mmol/L (8-16); Aspartate Amino Transferase 12 U/L (15-37); Bilirubin,Total 0.2 mg/dL (0.00-1.00); Blood Urea Nitrogen 12 mg/dL (7-18); Calcium 8.4 mg/dL (8.5-10.1); Carbon Dioxide 28 mmol/L (21-32); Chloride 105 mmol/L (98-108); Cholesterol 141 mg/dL (0-200); Estimated Glomerular Filt Rate > 60; Glucose 138 mg/dL (70-99); HDL Direct 54 mg/dL (40-60); LDL Cholesterol Calculated 62 mg/dL (<130); Osmolality Calculated 295 mOsm/kg (285-295); Potassium 4.5 mmol/L (3.5-5.1); Sodium 142 mmol/L (136-145); Total Protein 6.9 g/dL (6.4-8.2); Triglycerides 123 mg/dL (0-150); Vitamin B12 314 pg/mL (193-986)
[2021-05-31 13:44] LABS: Vitamin D 25 Hydroxy 65 ng/mL (30-100)
== END 2021-05-29 13:01 | disposition home or self-care (01) ==
LOC: CHSLAB 13:04 → CHSTREATRM 13:18
PROVIDERS: PCP Internal Medicine; Visit Provider Internal Medicine
DX: E53.8 Deficiency of other specified B group vitamins (principal); I10 Essential (primary) hypertension; E78.49 Other hyperlipidemia; E11.42 Type 2 diabetes mellitus with diabetic polyneuropathy; E55.9 Vitamin D deficiency, unspecified
CPT/HCPCS: 36415; 80053; 80061; 82043; 82306; 82607; 83036; 85025; 96372; J3420

== ENCOUNTER 2021-08-29 09:25 | Outpatient (CLI) | payer OTHER, SELFPAY ==
--- NOTE | ~2021-08-29 | US_ITS ---
EXAMINATION: US soft tissue head and neck DATE: 08/29/2021 10:13 INDICATION: Neck mass. TECHNIQUE: Multiple ultrasound images of the thyroid were obtained. COMPARISON: Chest CT 10/21/2018 FINDINGS: The right thyroid lobe measures 5.8 x 1.7 x 1.8 cm. The left thyroid lobe measures 5.0 x 1.4 x 1.4 c m. In the right thyroid lobe, there is a 7 mm solid, hypoechoic, wider than tall nodule with smooth margin without echogenic foci (TI-RADS TR4). In the left thyroid lobe, there is a 4 mm nodule. In the left thyroid lobe, there is a 6 mm solid, hypoechoic, wider than tall nodule with smooth margin with out echogenic foci (TR4). In the left thyroid lobe, there is a 4 mm nodule. IMPRESSION: 1. Small thyroid nodules, likely not clinically significant. No follow-up is needed. Reviewed, dictated and finalized at location A. IMPRESSION: 1. Small thyroid nodules, likely not clinically significant. No follow-up is ne eded.
== END 2021-08-29 09:26 | disposition home or self-care (01) ==
LOC: CHSIMG 09:26
PROVIDERS: PCP Internal Medicine; Visit Provider Internal Medicine
DX: R22.1 Localized swelling, mass and lump, neck (principal)
CPT/HCPCS: 76536

== ENCOUNTER 2021-10-05 12:57 | Outpatient (CLI) | payer OTHER, SELFPAY ==
--- NOTE | ~2021-10-05 | MM_ITS ---
EXAMINATION: MM screening [place] BI w ila HISTORY: Screening TECHNIQUE: Craniocaudal and mediolateral oblique 3-D tomosynthesis images were obtained and synthetic 2-D images were generated. CAD analysis was submitted and interpreted. COMPARISON: Comparison to multiple prior studies sequentially, with oldest reviewed study dated 10/2015. BREAST PARENCHYMAL COMPOSITION: The breasts are heterogenously dense, which may obscure small masses FINDINGS: There is no evidence of suspicious mass, calcification, or architectural distortion to sugg est malignancy in either breast. There has been no suspicious interval change. IMPRESSION: 1. No mammographic evidence of malignancy. 2. Recommend routine screening mammography in one year. BI-RADS Category 1: Negative Reviewed, dictated and finalized at location A.
== END 2021-10-05 12:58 | disposition home or self-care (01) ==
LOC: CHSIMG 12:58
PROVIDERS: PCP Internal Medicine; Visit Provider Student in an Organized Health Care Education/Training Program
DX: Z12.31 Encounter for screening mammogram for malignant neoplasm of breast (principal)
CPT/HCPCS: 77063; 77067

== ENCOUNTER 2021-10-11 10:06 | Outpatient (CLI) | payer OTHER, SELFPAY ==
[2021-10-11 10:24] LABS: Basophils Absolute Auto 0.09 K/mm3 (0.00-0.10); Basophils Percent Auto 1.3 % (0.0-1.0); Eosinophils Absolute Auto 0.51 K/mm3 (0.02-0.50); Eosinophils Percent Auto 7.1 % (1.0-6.0); Hematocrit 39.1 % (35.0-49.0); Hemoglobin 12.4 g/dL (12.0-15.0); Immature Granulocyte Absolute 0.03 K/mm3 (0.00-0.00); Immature Granulocyte Percent A 0.4 % (0.0-0.0); Lymphocytes Absolute Auto 2.04 K/mm3 (1.10-4.50); Lymphocytes Percent Auto 28.6 % (18.0-42.0); Mean Corpuscular HGB Conc 31.7 g/dL (32.0-36.0); Mean Corpuscular Hemoglobin 28.3 pg (27.0-31.0); Mean Corpuscular Volume 89.3 fL (78.0-102.0); Mean Platelet Volume 9.8 fl (9.2-11.8); Monocytes Absolute Auto 0.51 K/mm3 (0.10-0.90); Monocytes Percent Auto 7.1 % (2.0-11.0); Neutrophils Percent Auto 55.5 % (50.0-70.0); Platelet Count Result 299 K/mm3 (150-420); Red Blood Count 4.38 M/mm3 (4.20-5.40); Red Cell Distribution Width 14.2 % (11.6-14.4); White Blood Count 7.1 K/mm3 (4.8-10.8)
[2021-10-11 10:32] LABS: Hemoglobin A1C 8.3 % (<5.7)
[2021-10-11 11:05] LABS: Alanine Aminotransferase 24 U/L (14-59); Albumin Level 3.3 g/dL (3.4-5.0); Alkaline Phosphatase 54 U/L (46-116); Anion Gap 8 mmol/L (8-16); Aspartate Amino Transferase 17 U/L (15-37); Bilirubin,Total 0.4 mg/dL (0.00-1.00); Blood Urea Nitrogen 15 mg/dL (7-18); Calcium 8.3 mg/dL (8.5-10.1); Carbon Dioxide 30 mmol/L (21-32); Chloride 102 mmol/L (98-108); Cholesterol 135 mg/dL (0-200); Estimated Glomerular Filt Rate > 60; Glucose 110 mg/dL (70-99); HDL Direct 55 mg/dL (40-60); LDL Cholesterol Calculated 52 mg/dL (<130); Osmolality Calculated 291 mOsm/kg (285-295); Potassium 4.3 mmol/L (3.5-5.1); Sodium 140 mmol/L (136-145); Thyroid Stimulating Hormone 1.33 uIU/mL (0.36-3.74); Total Protein 6.7 g/dL (6.4-8.2); Triglycerides 138 mg/dL (0-150); Vitamin B12 283 pg/mL (193-986)
[2021-10-15 13:25] LABS: Parathyroid Intact 73 pg/mL (14-64)
[2021-10-16 19:18] LABS: Vitamin D 25 Hydroxy 80 ng/mL (30-100)
== END 2021-10-11 10:07 | disposition home or self-care (01) ==
LOC: CHSLAB 10:10
PROVIDERS: PCP Internal Medicine; Visit Provider Internal Medicine
DX: E53.8 Deficiency of other specified B group vitamins (principal); E55.9 Vitamin D deficiency, unspecified; R22.1 Localized swelling, mass and lump, neck; E11.42 Type 2 diabetes mellitus with diabetic polyneuropathy; I10 Essential (primary) hypertension
CPT/HCPCS: 36415; 80053; 80061; 82306; 82607; 83036; 83970; 84443; 85025

== ENCOUNTER 2021-11-01 07:30 | Outpatient (CLI) | payer OTHER, SELFPAY ==
--- NOTE | 2021-11-12 21:56 | WPDHOMESLEEP ---
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 The patient occasionally awakens from sleep short of breath. She frequently awakens at night with heartburn, belching or cough. She constantly snores loud enough that others complain. She occasionally has trouble sleeping when she has a cold. He occasionally wakes up gasping for air throughout the night. She frequently has breathing problems at night observed by herself or others. She occasionally sweats excessively at night. She frequently has heart palpitations or irregular heartbeats during the night. She frequently falls asleep during the day but never while driving. She denies cataplexy. He rarely has trouble at school or work due to sleepiness. She occasionally feels unable to move when waking up her falling asleep. She occasionally experiences vivid dreamlike scenes upon awakening or falling asleep. He denies feeling afraid of going to sleep. She occasionally has nightmares. She frequently remembers her dreams. She constantly has thoughts racing through her mind. She frequently feels sad, depressed or anxious. She occasionally has muscular tension. She rarely notices parts of her body jerk. He rarely kicks during the night. She frequently has crawling and aching feelings in her legs and occasionally has leg pain during the night. He denies grinding her teeth during sleep awakening with morning jaw pain. He is occasionally bothered by pain during the day and occasionally awakened by pain during the night. She frequently wakes up feeling stiff in the morning. He frequently wakes up with sore or achy muscles. He frequently wakes up with pain in the neck, spine and other joints. The patient goes to bed at midnight on both weekdays and weekends. It takes her 1-2 hours to fall asleep. She typically wakes up once throughout the night to urinate. She is able to fall back asleep within 5 minutes. She wakes up at 7:30 a.m. on weekdays and at 4:30 a.m. on work days. She typically gets 5-6 hours of sleep per night. She typically stays in bed for 1-2 hours after waking up in the morning. She currently lives with her significant other. She occasionally works split shifts or rotating shifts. She does not consume any caffeinated beverages within 2 hours of bedtime. She does not engage in physical exercise before bedtime. She will read and watch television before falling asleep. She will take naps in the afternoon or the evening and they are refreshing. She drinks 1-2 sodas per day. She quit smoking cigarettes 6 years ago. She denies alcohol and recreational drug use. [facility] Past Medical History Medical History Diabetes GERD (gastroesophageal reflux disease) Hypercholesteremia Hypertension Neuropathy Surgical History Surgical History H/O dilation and curettage History of appendectomy Hx of cholecystectomy Family History Family History Father Hypertension Family history of type 2 diabetes mellitus Sister Family history of type 2 diabetes mellitus Hypertension Social History Social History Smoking packs per day: 1.5 Smoking cigarettes per day: 30.0 Years smoked: 5 Smoking pack-years: 7.50 Smoking status: Former smoker Tobacco type: cigarettes Additional smoking
[2021-11-12 22:23] VITALS: BMI 36.6
== END 2021-11-02 10:11 | disposition home or self-care (01) ==
PROVIDERS: PCP Internal Medicine; Visit Provider Internal Medicine Cardiovascular Disease
DX: G47.10 Hypersomnia, unspecified (principal); G47.33 Obstructive sleep apnea (adult) (pediatric)
CPT/HCPCS: 95800

== ENCOUNTER 2022-04-22 11:02 | Outpatient (CLI) | payer OTHER, SELFPAY ==
[2022-04-22 11:11] LABS: Basophils Absolute Auto 0.08 K/mm3 (0.00-0.10); Eosinophils Absolute Auto 0.43 K/mm3 (0.02-0.50); Eosinophils Percent Auto 5.3 % (1.0-6.0); Hematocrit 42.8 % (35.0-49.0); Hemoglobin 13.4 g/dL (12.0-15.0); Immature Granulocyte Absolute 0.05 K/mm3 (0.00-0.00); Immature Granulocyte Percent A 0.6 % (0.0-0.0); Lymphocytes Percent Auto 26.9 % (18.0-42.0); Mean Corpuscular HGB Conc 31.3 g/dL (32.0-36.0); Mean Corpuscular Hemoglobin 28.2 pg (27.0-31.0); Mean Corpuscular Volume 90.1 fL (78.0-102.0); Monocytes Percent Auto 7.3 % (2.0-11.0); Neutrophils Absolute Auto 4.8 K/mm3 (1.7-7.2); Neutrophils Percent Auto 58.9 % (50.0-70.0); Platelet Count Result 343 K/mm3 (150-420); Red Blood Count 4.75 M/mm3 (4.20-5.40); Red Cell Distribution Width 13.6 % (11.6-14.4); White Blood Count 8.2 K/mm3 (4.8-10.8)
[2022-04-22 11:22] LABS: Hemoglobin A1C 10.7 % (<5.7)
[2022-04-22 11:49] LABS: Alanine Aminotransferase 38 U/L (14-59); Albumin Level 3.5 g/dL (3.4-5.0); Alkaline Phosphatase 52 U/L (46-116); Anion Gap 10 mmol/L (8-16); Aspartate Amino Transferase 24 U/L (15-37); Bilirubin,Total 0.3 mg/dL (0.00-1.00); Blood Urea Nitrogen 11 mg/dL (7-18); Calcium 8.5 mg/dL (8.5-10.1); Carbon Dioxide 31 mmol/L (21-32); Chloride 103 mmol/L (98-108); Cholesterol 160 mg/dL (0-200); Estimated Glomerular Filt Rate > 60; Glucose 89 mg/dL (70-99); HDL Direct 54 mg/dL (40-60); LDL Cholesterol Calculated 88 mg/dL (<130); Osmolality Calculated 296 mOsm/kg (285-295); Potassium 4.3 mmol/L (3.5-5.1); Sodium 144 mmol/L (136-145); Thyroid Stimulating Hormone 0.77 uIU/mL (0.36-3.74); Total Protein 7.2 g/dL (6.4-8.2); Triglycerides 92 mg/dL (0-150); Vitamin B12 348 pg/mL (193-986)
[2022-04-24 12:45] LABS: Vitamin D 25 Hydroxy 74 ng/mL (30-100)
[2022-04-24 21:22] LABS: Parathyroid Intact 64 pg/mL (14-64)
== END 2022-04-22 11:03 | disposition home or self-care (01) ==
LOC: CHSLAB 11:04
PROVIDERS: PCP Internal Medicine; Visit Provider Internal Medicine
DX: E53.8 Deficiency of other specified B group vitamins (principal); E55.9 Vitamin D deficiency, unspecified; R22.1 Localized swelling, mass and lump, neck; E11.42 Type 2 diabetes mellitus with diabetic polyneuropathy; I10 Essential (primary) hypertension
CPT/HCPCS: 36415; 80053; 80061; 82306; 82607; 83036; 83970; 84443; 85025

== ENCOUNTER 2022-04-30 07:46 | Outpatient (RCR) | payer OTHER, SELFPAY ==
--- NOTE | 2022-04-30 09:08 | PTOPEVAL1 ---
Assessment and note entered by JT File, PT Evaluation Information Assessment Status Evaluation Diagnosis L shoulder pain Onset 04/25/22 Subjective Information patient reports she is having pain in the L shoulder. she reports it hurts with reaching behind her, lifting the shoulder up, and lifting. she reports it will bring her to tears. she reports she has had no imaging of the L shoulder. she reports the MD thinks it may be some tendonitis. she reports she began having symptoms for about 3-4 months. she reports it is progressively getting worse. she reports the does carry a book bag on the L shoulder. she reports she is L handed. she reports no change in activity , and no injury. she reports the pain will radiate outside the L shoulde to the hand. she reports the has no numbness. Reported Pain Level Pain Score 3: Self Report Assessment PT Clinical Summary mrs. stevenson presents to skilled PT services for evaluation and treatment of L shoulder pain. she presents with signs and symptoms of L shoulder impingement secondary to RTC tendonitis. she would benefit from skilled PT to improve her objective/ functional deficits and progress towards a return to her prior level functional activity performance /quality of life. Plan of Care Interventions Electrical Stimulation,Hot Pack/Cold Pack,Manual Therapy,Neuro Re-education,Patient/Caregiver Educati,Therapeutic Activities,Therapeutic Exercise PT Services Indicated Yes Treatment Frequency and 3x weekly for 12 visits Duration These treatments will address the objective and functional deficits as defined above. The patient will be advanced safely and appropriately in order for the patient to progress towards his/her prior level of function. Additional exercises will be introduced and as well as a comprehensive home exercise program upon discharge, if needed, ?to ensure carryover of functional gains achieved in the clinic. This treatment plan has been reviewed and agreement upon by the patient.
--- NOTE | 2022-05-29 07:57 | PTOPEVAL1 ---
Assessment and note entered by Ricardo Domingo Evaluation Information Assessment Status Evaluation Diagnosis L shoulder pain Onset 04/25/22 Subjective Information Pt. reports that her pain is less intense. She no longer has 10/10 moments. She states that she has noticed improvement in reaching overhead and can use the left arm to brush her hair. She states that she still has pain with reaching overhead. Reported Pain Level Pain Score 3: Self Report Assessment PT Clinical Summary Pt. has attended a total of 12 treatment sessions. In this time she has demonstrated progress in both strength and ROM. Pain reports have also decreased. Despite progress deficits remain in regards to strength and mobility. Discussed with the pt. returning to her doctor to inquire regarding cortisone injection. Cannot rule out possible adhesive capsulitis this date, however pt . appears to be in the thawing stage. Continued skilled PT is indicated at a decreased frequency to continue to improve strength and mobility at the left shoulder for improved performance of functional activities. Plan of Care Interventions Hot Pack/Cold Pack,Manual Therapy,Neuro Re- education,Therapeutic Activities,Therapeutic Exercise PT Services Indicated Yes Treatment Frequency and 1x/week x 4 visits Duration These treatments will address the objective and functional deficits as defined above. The patient will be advanced safely and appropriately in order for the patient to progress towards his/her prior level of function. Additional exercises will be introduced and as well as a comprehensive home exercise program upon discharge, if needed, ?to ensure carryover of functional gains achieved in the clinic. This treatment plan has been reviewed and agreement upon by the patient.
== END 2022-06-26 16:28 | disposition home or self-care (01) ==
LOC: CHSPT 07:46
PROVIDERS: Visit Provider Internal Medicine
DX: M25.512 Pain in left shoulder (principal)
CPT/HCPCS: 97014; 97110; 97140; 97161; 97530; G0283

== ENCOUNTER 2022-06-21 09:58 | Outpatient (CLI) | payer OTHER, SELFPAY ==
--- NOTE | ~2022-06-21 | XR_ITS ---
EXAMINATION: XR shoulder LT min 2V INDICATION: Left shoulder pain TECHNIQUE: Four views of the left shoulder are submitted. COMPARISON: None FINDINGS: Normal alignment. No fracture. 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 Soft tissues are unremarkable. IMPRESSION: 1. No acute osseous abnormality. Reviewed, dictated and finalized at location B.
== END 2022-06-21 09:59 | disposition home or self-care (01) ==
LOC: CHSIMG 10:00
PROVIDERS: PCP Internal Medicine; Visit Provider Orthopaedic Surgery
DX: M25.512 Pain in left shoulder (principal)
CPT/HCPCS: 73030

== ENCOUNTER 2022-07-25 09:04 | Outpatient (CLI) | payer OTHER, SELFPAY ==
--- NOTE | ~2022-07-25 | MR_ITS ---
MRI of the left shoulder Technique: Axial proton-density fat-sat images, coronal proton density fat-sat and T2 fat-sat images, and sagittal T1-weighted and T2 fat-sat images were acquired. Clinical History: Pain Findings: There is mild to moderate degenerative change at the AC joint, with minimal subacromial spu r. Coracoclavicular, coracoacromial, and coracohumeral ligaments are intact. Supraspinatus and infraspinatus tendons are intact, without partial or full-thickness tear. Subscapul jhon tendon is intact. Tendon of long head of the biceps is intact. Suspected degenerative tearing at the anterior labrum at the equator. Inferior glenohumeral ligament is intact, with thickening and increased signal. No glenohumeral joint effusion or degenerative change. No fluid distention of the subacromial/subdeltoid bursa. No muscle/ edema. Impression: Findings suggestive of adhesive capsulitis. Probable degenerative tearing of the anterior labrum at the equator. Reviewed, dictated and finalized at [facility]. Impression: Findings suggestive of adhesive capsulitis. Probable degenerative tearing of the anterior labrum at the equator.
== END 2022-07-25 09:05 | disposition home or self-care (01) ==
LOC: CHSIMG 09:07
PROVIDERS: PCP Internal Medicine; Visit Provider Internal Medicine
DX: M25.512 Pain in left shoulder (principal)
CPT/HCPCS: 73221

== ENCOUNTER 2022-09-06 16:05 | Outpatient (CLI) | payer OTHER, SELFPAY ==
[2022-09-06 16:28] LABS: Hemoglobin A1C 7.6 % (<5.7)
[2022-09-06 16:29] LABS: Alanine Aminotransferase 24 U/L (14-59); Albumin Level 3.4 g/dL (3.4-5.0); Alkaline Phosphatase 59 U/L (46-116); Anion Gap 10 mmol/L (8-16); Aspartate Amino Transferase 18 U/L (15-37); Basophils Percent Auto 1.1 % (0.0-1.0); Bilirubin,Total 0.5 mg/dL (0.00-1.00); Blood Urea Nitrogen 13 mg/dL (7-18); Calcium 9.1 mg/dL (8.5-10.1); Carbon Dioxide 29 mmol/L (21-32); Chloride 102 mmol/L (98-108); Cholesterol 153 mg/dL (0-200); Eosinophils Absolute Auto 0.49 K/mm3 (0.02-0.50); Eosinophils Percent Auto 5.3 % (1.0-6.0); Estimated Glomerular Filt Rate > 60; Glucose 165 mg/dL (70-99); HDL Direct 62 mg/dL (40-60); Hematocrit 41.4 % (35.0-49.0); Hemoglobin 13.1 g/dL (12.0-15.0); Immature Granulocyte Absolute 0.02 K/mm3 (0.00-0.00); Immature Granulocyte Percent A 0.2 % (0.0-0.0); LDL Cholesterol Calculated 71 mg/dL (<130); Lymphocytes Absolute Auto 1.75 K/mm3 (1.10-4.50); Lymphocytes Percent Auto 19.1 % (18.0-42.0); Mean Corpuscular HGB Conc 31.6 g/dL (32.0-36.0); Mean Corpuscular Volume 91.8 fL (78.0-102.0); Mean Platelet Volume 10.8 fl (9.2-11.8); Monocytes Absolute Auto 0.52 K/mm3 (0.10-0.90); Monocytes Percent Auto 5.7 % (2.0-11.0); Neutrophils Absolute Auto 6.3 K/mm3 (1.7-7.2); Neutrophils Percent Auto 68.6 % (50.0-70.0); Osmolality Calculated 296 mOsm/kg (285-295); Platelet Count Result 358 K/mm3 (150-420); Potassium 4.6 mmol/L (3.5-5.1); Red Blood Count 4.51 M/mm3 (4.20-5.40); Red Cell Distribution Width 13.9 % (11.6-14.4); Sodium 141 mmol/L (136-145); Thyroid Stimulating Hormone 0.98 uIU/mL (0.36-3.74); Total Protein 6.8 g/dL (6.4-8.2); Triglycerides 100 mg/dL (0-150); Vitamin B12 266 pg/mL (193-986); White Blood Count 9.2 K/mm3 (4.8-10.8)
[2022-09-06 16:35] LABS: Creatinine Urine 71.51 mg/dL (40-278); MALB Creatinine Ratio 18.1 mg/g (0-30); Microalbumin Urine Random < 13.0 mg/L
== END 2022-09-06 16:06 | disposition home or self-care (01) ==
LOC: CHSLAB 16:08
PROVIDERS: PCP Internal Medicine; Visit Provider Internal Medicine
DX: E53.8 Deficiency of other specified B group vitamins (principal); E04.2 Nontoxic multinodular goiter; E11.42 Type 2 diabetes mellitus with diabetic polyneuropathy; I10 Essential (primary) hypertension
CPT/HCPCS: 36415; 80053; 80061; 82043; 82607; 83036; 84443; 85025

== ENCOUNTER 2022-11-15 11:56 | Outpatient (CLI) | payer OTHER, SELFPAY ==
[2022-11-15] MEDS: CYANOCOBALAMIN INJ 1,000 MCG/ML VIAL 1000 MCG IM (12:15)
[2022-11-15 12:42] VITALS: BP 121/80; PULSE 78; RESP 14; O2SAT 99; BMI 33.0
--- NOTE | 2022-11-15 12:44 | PC.NURSE ---
Patient here for monthly B12 injection. No concerns voiced. Education given. Vitamin B12 injection administered. SEE MAR Will return next month for B12 on 12/20/22 1200.
== END 2022-11-15 11:57 | disposition home or self-care (01) ==
LOC: CHSTREATRM 11:58
PROVIDERS: PCP Internal Medicine; Visit Provider Internal Medicine
DX: E53.8 Deficiency of other specified B group vitamins (principal)
CPT/HCPCS: 96372; J3420

== ENCOUNTER 2022-12-23 12:33 | Outpatient (CLI) | payer OTHER, SELFPAY ==
[2022-12-23 12:41] VITALS: BMI 33.0
[2022-12-23 12:42] VITALS: BP 119/68; PULSE 78; RESP 14; O2SAT 98
[2022-12-23] MEDS: CYANOCOBALAMIN INJ 1,000 MCG/ML VIAL 1000 MCG IM (12:42)
--- NOTE | 2022-12-23 12:43 | PC.NURSE ---
Patient here for monthly B12 injection. No concerns voiced. Injection administered. SEE MAR. Tolerated well. Will return Jan 22, 2023 at 1200 for next's months injection. 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
== END 2022-12-23 12:34 | disposition home or self-care (01) ==
PROVIDERS: PCP Internal Medicine; Visit Provider Internal Medicine
DX: E53.8 Deficiency of other specified B group vitamins (principal)
CPT/HCPCS: 96372; J3420

== ENCOUNTER 2023-01-22 11:14 | Outpatient (CLI) | payer OTHER, SELFPAY ==
--- NOTE | ~2023-01-22 | MM_ITS ---
EXAMINATION: MM screening [place] BI w ila HISTORY: Screening mammogram TECHNIQUE: Craniocaudal and mediolateral oblique 3-D tomosynthesis images were obtained and synthetic 2-D images were generated. CAD analysis was submitted and interpreted. COMPARISON: 10/05/2021, 01/19/2020, 01/15/2019 bilateral screening mammogram examinations BREAST PARENCHYMAL COMPOSITION: There are scattered areas of fibroglandular density. FINDINGS: There is no evidence of suspicious mass, calcification, or architectural distortion to sugg est malignancy in either breast. There has been no suspicious interval change. IMPRESSION: 1. No mammographic evidence of malignancy. 2. Recommend routine screening mammography in one year. BI-RADS Category 1: Negative Reviewed, dictated and finalized at location A.
== END 2023-01-22 11:15 | disposition home or self-care (01) ==
LOC: CHSIMG 11:16
PROVIDERS: PCP Internal Medicine; Visit Provider Internal Medicine
DX: Z12.31 Encounter for screening mammogram for malignant neoplasm of breast (principal)
CPT/HCPCS: 77063; 77067

== ENCOUNTER 2023-01-23 09:41 | Outpatient (CLI) | payer OTHER, SELFPAY ==
[2023-01-23 12:30] VITALS: BMI 33.0
[2023-01-23 12:31] VITALS: BP 120/70; PULSE 76; RESP 14; O2SAT 98
--- NOTE | 2023-01-23 12:31 | PC.NURSE ---
Patient here for monthly B12 injection. No concerns voiced. B12 injection administered. SEE MAR. Tolerated well. 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
[2023-01-23] MEDS: CYANOCOBALAMIN INJ 1,000 MCG/ML VIAL 1000 MCG IM (12:41)
== END 2023-01-23 09:42 | disposition home or self-care (01) ==
LOC: CHSTREATRM 09:44
PROVIDERS: PCP Internal Medicine; Visit Provider Internal Medicine
DX: E53.8 Deficiency of other specified B group vitamins (principal); I10 Essential (primary) hypertension; E78.00 Pure hypercholesterolemia, unspecified; E66.9 Obesity, unspecified; Z68.33 Body mass index [BMI] 33.0-33.9, adult
CPT/HCPCS: 96372; J3420

== ENCOUNTER 2023-03-14 06:33 | Outpatient (CLI) | payer OTHER, SELFPAY ==
[2023-03-14 06:58] LABS: Basophils Absolute Auto 0.09 K/mm3 (0.00-0.10); Basophils Percent Auto 1.4 % (0.0-1.0); Eosinophils Absolute Auto 0.31 K/mm3 (0.02-0.50); Eosinophils Percent Auto 4.7 % (1.0-6.0); Hematocrit 40.7 % (35.0-49.0); Hemoglobin 12.6 g/dL (12.0-15.0); Immature Granulocyte Absolute 0.04 K/mm3 (0.00-0.00); Immature Granulocyte Percent A 0.6 % (0.0-0.0); Lymphocytes Absolute Auto 1.82 K/mm3 (1.10-4.50); Lymphocytes Percent Auto 27.4 % (18.0-42.0); Mean Corpuscular Hemoglobin 28.1 pg (27.0-31.0); Mean Corpuscular Volume 90.6 fL (78.0-102.0); Mean Platelet Volume 10.5 fl (9.2-11.8); Monocytes Absolute Auto 0.55 K/mm3 (0.10-0.90); Monocytes Percent Auto 8.3 % (2.0-11.0); Neutrophils Absolute Auto 3.8 K/mm3 (1.7-7.2); Neutrophils Percent Auto 57.6 % (50.0-70.0); Platelet Count Result 335 K/mm3 (150-420); Red Blood Count 4.49 M/mm3 (4.20-5.40); Red Cell Distribution Width 13.6 % (11.6-14.4); White Blood Count 6.7 K/mm3 (4.8-10.8)
[2023-03-14 07:08] LABS: Hemoglobin A1C 8.4 % (<5.7)
[2023-03-14 07:34] LABS: Creatinine Urine 135.67 mg/dL (40-278); MALB Creatinine Ratio 9.7 mg/g (0-30); Microalbumin Urine Random 13.2 mg/L
[2023-03-14 07:43] LABS: Alanine Aminotransferase 33 U/L (14-59); Albumin Level 3.6 g/dL (3.4-5.0); Alkaline Phosphatase 52 U/L (46-116); Anion Gap 5 mmol/L (8-16); Aspartate Amino Transferase 17 U/L (15-37); Bilirubin,Total 0.5 mg/dL (0.00-1.00); Blood Urea Nitrogen 10 mg/dL (7-18); Calcium 8.8 mg/dL (8.5-10.1); Carbon Dioxide 34 mmol/L (21-32); Chloride 100 mmol/L (98-108); Cholesterol 123 mg/dL (0-200); Estimated Glomerular Filt Rate > 60; Glucose 145 mg/dL (70-99); HDL Direct 47 mg/dL (40-60); LDL Cholesterol Calculated 54 mg/dL (<130); Osmolality Calculated 290 mOsm/kg (285-295); Potassium 4.1 mmol/L (3.5-5.1); Sodium 139 mmol/L (136-145); Total Protein 6.8 g/dL (6.4-8.2); Triglycerides 112 mg/dL (0-150); Vitamin B12 369 pg/mL (193-986)
== END 2023-03-14 06:34 | disposition home or self-care (01) ==
LOC: CHSLAB 06:42
PROVIDERS: PCP Internal Medicine; Visit Provider Internal Medicine
DX: E53.8 Deficiency of other specified B group vitamins (principal); E11.42 Type 2 diabetes mellitus with diabetic polyneuropathy
CPT/HCPCS: 36415; 80053; 80061; 82043; 82607; 83036; 84443; 85025

== ENCOUNTER 2023-04-01 16:08 | Outpatient (CLI) | payer OTHER, SELFPAY | END 2023-04-01 16:09 | disposition home or self-care (01) | LOC: CHSLAB 16:11 | PROVIDERS: Visit Provider Specialist | DX: L01.00 Impetigo, unspecified (principal) | CPT/HCPCS: 87070; 87147; 87186; 87205 ==

== ENCOUNTER 2023-05-14 13:37 | Outpatient (CLI) | payer OTHER, SELFPAY ==
[2023-05-14 13:48] VITALS: BP 125/70; PULSE 68; RESP 14; TEMP 36.3; O2SAT 97; BMI 32.6
[2023-05-14] MEDS: CYANOCOBALAMIN INJ 1,000 MCG/ML VIAL 1000 MCG IM (13:50)
--- NOTE | 2023-05-14 13:51 | PC.NURSE ---
Patient here for monthly B12 injection. No concerns voiced. States, I don't need any education paperwork. B12 injection administered. SEE MAR. Tolerated well. Safe exit of hospital per self/ambulatory.
== END 2023-05-14 13:55 | disposition home or self-care (01) ==
LOC: CHSTREATRM 13:42
PROVIDERS: PCP Internal Medicine; Visit Provider Internal Medicine
DX: E53.8 Deficiency of other specified B group vitamins (principal)
CPT/HCPCS: 96372; J3420

== ENCOUNTER 2023-06-09 09:36 | Emergency (ER) | payer OTHER, SELFPAY ==
[2023-06-09 09:36] VITALS: BP 132/69; PULSE 87; RESP 17; TEMP 36.3; O2SAT 98
[2023-06-09 09:39] VITALS: O2SAT 98
--- NOTE | 2023-06-09 09:41 | ED.URI ---
HPI - URI/Sore Throat General Chief Complaint: Upper Respiratory Infection Stated Complaint: cold symptoms Time Seen by Provider: 06/09/23 09:37 Source: patient Mode of arrival: ambulatory History of Present Illness HPI Narrative: Patient is a 58-year-old female with a significant past medical history that presents today with cough congestion, her ear. She has URI symptoms for the last 3 days. She says that she is coughing up greenish yellow sputum. She denies any fevers or sick contacts. She has not taken a COVID test. She says it feels like her chest is tight and full of fluid. MD elicited complaint: cough Onset (ago): hour(s) Description of mucous: yellow and green Able to tolerate fluids by mouth: Yes Exacerbating factors: nothing Relieving factors: nothing Related Data Home Medications Medication Instructions Recorded Confirmed dulaglutide 1.5 mg/0.5 mL 1.5 mg subcut WEEKLY 11/18/19 05/14/23 subcutaneous pen injector (Trulicity) duloxetine 30 mg capsule,delayed 30 mg PO DAILY 11/18/19 05/14/23 release empagliflozin 25 mg tablet 25 mg PO DAILY 11/18/19 05/14/23 (Jardiance) estradiol 1 mg-progesterone 100 mg 1 cap PO DAILY 11/18/19 05/14/23 capsule (Bijuva) insulin glargine U-300 conc 300 100 unit subcut DAILY 11/18/19 05/14/23 unit/mL (3 mL) subcutaneous pen (Toujeo Max U-300 SoloStar) metformin 1,000 mg tablet 1,000 mg PO BID 11/18/19 05/14/23 omeprazole 20 mg capsule,delayed 20 mg PO DAILY PRN Acid Reflux 11/18/19 05/14/23 release pravastatin 20 mg tablet 20 mg PO HS 11/18/19 05/14/23 triamcinolone acetonide 0.1 % 1 applic topical DAILY PRN Rash 11/18/19 05/14/23 lotion metoprolol succinate 50 mg 100 mg PO DAILY 10/04/21 05/14/23 tablet,extended release 24 hr cholecalciferol (vitamin D3) 1,250 1,250 mcg PO WEEKLY 07/02/22 05/14/23 mcg (50,000 unit) capsule gabapentin 600 mg tablet 600 mg PO BID PRN Pain 07/02/22 05/14/23 tirzepatide 7.5 mg/0.5 mL 7.5 mg subcut WEEKLY 07/02/22 05/14/23 subcutaneous pen injector (Xanderunlaloro) Allergies Allergy/AdvReac Type Severity Reaction Status Date / Time No Known Allergies Allergy Verified 06/09/23 09:37 Review of Systems Review of Systems: All systems reviewed & are unremarkable except as noted in HPI and below Constitutional: Constitutional: Reports as per HPI Eyes: Eyes: Reports no additional eye complaints ENT: Reports as per HPI Cardiovascular: Cardiovascular: Reports no additional cardiovascular complaints Respiratory: Respiratory: Reports chest congestion, Reports cough and Reports dyspnea Gastrointestinal: Gastrointestinal: Reports no additional gastrointestinal complaints Genitourinary: Genitourinary: Reports no additional female genitourinary complaints Musculoskeletal: Musculoskeletal: Reports no additional musculoskeletal complaints Integumentary/Breasts: Skin/Breast: Reports system reviewed and no additional complaints, except as docu Neurologic: Reports system reviewed and no additional complaints, except as documented Psychiatric: Psychiatric: Reports no additional psychiatric complaints Endocrine: Endocrine: Reports no additional endocrine complaints Hematologic/Lymphatic: Hematologic/Lymphatic: Reports no additional hematologic/lymphatic complaints [facility] Past Medical History Medical History Adhesive capsulitis of left shoulder associated with type 2 diabetes mellitus Diabetes GERD (gastroesophageal reflux disease) Hypercholesteremia Hypertension Left shoulder pain Neuropathy Tendinitis of left rotator cuff Surgical History Surgical History H/O dilation and curettage H/O tubal ligation H/O: hysterectomy History of appendectomy Hx of cholecystectomy Family History Family History Father Hypertension Family history of type 2 diab
[2023-06-09 09:58] VITALS: BP 132/69; PULSE 87; RESP 17; TEMP 36.3; O2SAT 98
== END 2023-06-09 09:58 | disposition home or self-care (01) ==
PROVIDERS: Emergency Provider Family Medicine
DX: J18.9 Pneumonia, unspecified organism (principal); J06.9 Acute upper respiratory infection, unspecified; E11.9 Type 2 diabetes mellitus without complications; I10 Essential (primary) hypertension; Z87.891 Personal history of nicotine dependence
CPT/HCPCS: 99283

== ENCOUNTER 2023-06-24 13:16 | Outpatient (CLI) | payer OTHER, SELFPAY ==
[2023-06-24 13:32] VITALS: BP 129/77; PULSE 68; RESP 14; TEMP 36.4; O2SAT 96; BMI 33.5
--- NOTE | 2023-06-24 13:33 | PC.NURSE ---
Patient here for monthly B12 injection. Education given. No concerns voiced. B12 injection administered. SEE MAR. Tolerated well. Safe exit of hospital per self/ambulatory. Will return 07/29/23 1330 pm for next injection.
[2023-06-24] MEDS: CYANOCOBALAMIN INJ 1,000 MCG/ML VIAL 1000 MCG IM (13:36)
== END 2023-06-24 13:17 | disposition home or self-care (01) ==
PROVIDERS: PCP Internal Medicine; Visit Provider Internal Medicine
DX: E53.8 Deficiency of other specified B group vitamins (principal)
CPT/HCPCS: 96372; J3420

== ENCOUNTER 2023-07-29 12:31 | Outpatient (CLI) | payer OTHER, SELFPAY ==
[2023-07-29] MEDS: CYANOCOBALAMIN INJ 1,000 MCG/ML VIAL 1000 MCG IM (13:33)
[2023-07-29 13:35] VITALS: BP 123/87; PULSE 74; RESP 16; TEMP 36.6; O2SAT 97; BMI 33.5
--- NOTE | 2023-07-29 13:40 | PC.NURSE ---
Patient here for monthly B12 injection. No concerns voiced. B12 injection administered. SEE MAR. Tolerated well. 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 Will return 08/28/23 1300
== END 2023-07-29 12:32 | disposition home or self-care (01) ==
PROVIDERS: PCP Internal Medicine; Visit Provider Specialist
DX: E53.8 Deficiency of other specified B group vitamins (principal)
CPT/HCPCS: 87070; 87147; 87205; 96372; J3420

== ENCOUNTER 2023-08-28 13:35 | Outpatient (CLI) | payer OTHER, SELFPAY ==
[2023-08-28 13:39] VITALS: BP 131/69; PULSE 78; RESP 16; TEMP 36.1; O2SAT 98; BMI 33.1
[2023-08-28] MEDS: CYANOCOBALAMIN INJ 1,000 MCG/ML VIAL 1000 MCG IM (13:44)
--- NOTE | 2023-08-28 13:50 | PC.NURSE ---
Patient here for monthly B12 injection. Education given. NO concerns voiced. Injection administered. SEE MAR. Tolerated well. Will return 09/30/23 at 1300 for next injection. Safe exit back ambulatory to lab where she works.
== END 2023-08-28 13:36 | disposition home or self-care (01) ==
PROVIDERS: PCP Internal Medicine; Visit Provider Internal Medicine
DX: E53.8 Deficiency of other specified B group vitamins (principal)
CPT/HCPCS: 96372; J3420

== ENCOUNTER 2023-09-30 07:08 | Outpatient (CLI) | payer OTHER, SELFPAY ==
[2023-09-30 07:14] VITALS: BP 129/69; PULSE 72; RESP 14; TEMP 36.1; O2SAT 98; BMI 32.3
[2023-09-30] MEDS: CYANOCOBALAMIN INJ 1,000 MCG/ML VIAL 1000 MCG (07:35)
--- NOTE | 2023-09-30 07:36 | PC.NURSE ---
Patient here for her monthly B12 injection. Education given. No concern voiced. Injection administered. SEE MAR. Tolerated well. 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 Next injection 11/04/23 at 8:30 am
[2023-09-30 08:18] LABS: Basophils Absolute Auto 0.08 K/mm3 (0.00-0.10); Basophils Percent Auto 1.1 % (0.0-1.0); Eosinophils Absolute Auto 0.56 K/mm3 (0.02-0.50); Eosinophils Percent Auto 7.8 % (1.0-6.0); Hematocrit 39.9 % (35.0-49.0); Hemoglobin 12.9 g/dL (12.0-15.0); Immature Granulocyte Absolute 0.02 K/mm3 (0.00-0.00); Immature Granulocyte Percent A 0.3 % (0.0-0.0); Lymphocytes Absolute Auto 2.18 K/mm3 (1.10-4.50); Lymphocytes Percent Auto 30.5 % (18.0-42.0); Mean Corpuscular HGB Conc 32.3 g/dL (32-36); Mean Corpuscular Hemoglobin 28.2 pg (27.0-31.0); Mean Corpuscular Volume 87.3 fL (78.0-102.0); Mean Platelet Volume 9.6 fl (9.2-11.8); Monocytes Absolute Auto 0.56 K/mm3 (0.10-0.90); Monocytes Percent Auto 7.8 % (2.0-11.0); Neutrophils Absolute Auto 3.74 K/mm3 (1.70-7.20); Neutrophils Percent Auto 52.5 % (50.0-70.0); Platelet Count Result 341 K/mm3 (150-420); Red Blood Count 4.57 M/mm3 (4.20-5.40); White Blood Count 7.1 K/mm3 (4.8-10.8)
[2023-09-30 09:20] LABS: Alanine Aminotransferase 20 U/L (14-59); Albumin Level 3.2 g/dL (3.4-5.0); Alkaline Phosphatase 51 U/L (46-116); Anion Gap 9 mmol/L (4-12); Aspartate Amino Transferase 14 U/L (15-37); Bilirubin,Total 0.2 mg/dL (0.00-1.00); Blood Urea Nitrogen 13 mg/dL (7-18); Calcium 8.3 mg/dL (8.5-10.1); Carbon Dioxide 29 mmol/L (21-32); Chloride 100 mmol/L (98-108); Cholesterol 158 mg/dL (0-200); Estimated CRCL calculation 71 ml/min; Estimated Glomerular Filt Rate > 60; Glucose 290 mg/dL (70-99); HDL Direct 51 mg/dL (40-60); LDL Cholesterol Calculated 75 mg/dL (<130); Osmolality Calculated 297 mOsm/kg (285-295); Potassium 4.3 mmol/L (3.5-5.1); Sodium 138 mmol/L (136-145); Thyroid Stimulating Hormone 2.01 uIU/mL (0.36-3.74); Triglycerides 159 mg/dL (0-150)
[2023-09-30 09:22] LABS: Vitamin B12 > 2000 pg/mL (193-986)
[2023-10-03 17:43] LABS: Almond (F20) IgE 0.16 kU/L; Cashew Nut (F202) IgE <0.10 kU/L; Cashew Nut (F202) IgE Class 0; Codfish (F3) IgE <0.10 kU/L; Codfish (F3) IgE Class 0; Cow's Milk (F2) IgE 0.59 kU/L; Cow's Milk (F2) IgE Class 1; Egg White (F1) IgE 0.51 kU/L; Egg White (F1) IgE Class 1; Hazelnut (F17) IgE 0.42 kU/L; Hazelnut (F17) IgE Class 1; Peanut (F13) IgE 1.03 kU/L; Peanut (F13) IgE Class 2; Salmon (F41) IgE <0.10 kU/L; Salmon (F41) IgE Class 0; Scallop (F338) IgE <0.10 kU/L; Scallop (F338) IgE Class 0; Sesame Seed 0.72 kU/L; Shrimp (F24) IgE <0.10 kU/L; Soybean (F14) IgE Class 1; Tuna (F40) <0.10 kU/L; Tuna (F40) Class 0; Walnut (F256) IgE 0.35 kU/L; Walnut (F256) IgE Class 1; Wheat (F4) IgE Class 0/1
== END 2023-09-30 07:09 | disposition home or self-care (01) ==
PROVIDERS: PCP Internal Medicine; Visit Provider Internal Medicine
DX: E53.8 Deficiency of other specified B group vitamins (principal); E78.49 Other hyperlipidemia; I10 Essential (primary) hypertension; R21 Rash and other nonspecific skin eruption; E78.00 Pure hypercholesterolemia, unspecified
CPT/HCPCS: 36415; 80053; 80061; 82607; 83036; 84443; 85025; 86003; 96372; J3420

== ENCOUNTER 2023-11-13 09:40 | Outpatient (CLI) | payer OTHER, SELFPAY ==
[2023-11-13 10:16] VITALS: BP 121/71; PULSE 68; RESP 14; TEMP 36.7; O2SAT 98; BMI 32.3
[2023-11-13] MEDS: CYANOCOBALAMIN INJ 1,000 MCG/ML VIAL 1000 MCG IM (10:19)
--- NOTE | 2023-11-13 10:23 | PC.NURSE ---
Patient here for monthly B12 injection. Education given. No concerns voiced. Injection administered. SEE MAR / patient care notes. Tolerated well.
--- NOTE | 2023-11-13 10:25 | PC.NURSE ---
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
== END 2023-11-13 09:41 | disposition home or self-care (01) ==
PROVIDERS: PCP Internal Medicine; Visit Provider Internal Medicine
DX: E53.8 Deficiency of other specified B group vitamins (principal)
CPT/HCPCS: 96372; J3420

== ENCOUNTER 2023-12-17 10:05 | Outpatient (CLI) | payer OTHER, SELFPAY ==
[2023-12-17 10:19] VITALS: BP 129/73; PULSE 68; RESP 14; TEMP 36.3; O2SAT 97; BMI 31.8
[2023-12-17] MEDS: CYANOCOBALAMIN INJ 1,000 MCG/ML VIAL 1000 MCG IM (10:20)
--- NOTE | 2023-12-17 10:26 | PC.NURSE ---
Patient here for monthly B12 injection. Education given. No concerns voiced. Injection administered. SEE MAR/patient care notes. Tolerated well.
== END 2023-12-17 10:06 | disposition home or self-care (01) ==
PROVIDERS: PCP Internal Medicine; Visit Provider Internal Medicine
DX: E53.8 Deficiency of other specified B group vitamins (principal)
CPT/HCPCS: 96372; J3420

== ENCOUNTER 2024-01-27 10:02 | Outpatient (CLI) | payer OTHER, SELFPAY ==
[2024-01-27] MEDS: CYANOCOBALAMIN INJ 1,000 MCG/ML VIAL 1000 MCG IM (11:26)
[2024-01-27 11:28] VITALS: BP 121/68; PULSE 78; RESP 14; TEMP 36.6; O2SAT 98; BMI 31.8
--- NOTE | 2024-01-27 11:34 | PC.NURSE ---
Patient here for monthly B12 injection. Education given. No concerns voiced. Injection administered. SEE MAR/patient care notes. Tolerated well.
== END 2024-01-27 10:03 | disposition home or self-care (01) ==
PROVIDERS: PCP Internal Medicine; Visit Provider Internal Medicine
DX: E53.8 Deficiency of other specified B group vitamins (principal)
CPT/HCPCS: 96372; J3420

== ENCOUNTER 2024-03-01 10:31 | Outpatient (CLI) | payer OTHER, SELFPAY ==
[2024-03-01 11:00] VITALS: BP 121/64; PULSE 88; RESP 14; TEMP 36.1; O2SAT 97; BMI 31.8
[2024-03-01] MEDS: CYANOCOBALAMIN INJ 1,000 MCG/ML VIAL 1000 MCG IM (11:06)
--- NOTE | 2024-03-01 11:07 | PC.NURSE ---
Patient for monthly B12 injection. Education given. No concerns voiced. Injection administered. SEE MAR/patient care notes. Tolerated well.
== END 2024-03-01 10:32 | disposition home or self-care (01) ==
PROVIDERS: PCP Internal Medicine; Visit Provider Internal Medicine
DX: E53.8 Deficiency of other specified B group vitamins (principal)
CPT/HCPCS: 96372; J3420

== ENCOUNTER 2024-03-12 10:20 | Outpatient (CLI) | payer OTHER, SELFPAY ==
[2024-03-12 10:34] LABS: Basophils Absolute Auto 0.07 K/mm3 (0.00-0.10); Eosinophils Absolute Auto 0.23 K/mm3 (0.02-0.50); Eosinophils Percent Auto 3.3 % (1.0-6.0); Hematocrit 42.3 % (35.0-49.0); Hemoglobin 13.6 g/dL (12.0-15.0); Immature Granulocyte Absolute 0.02 K/mm3 (0.00-0.00); Immature Granulocyte Percent A 0.3 % (0.0-0.0); Lymphocytes Absolute Auto 1.85 K/mm3 (1.10-4.50); Lymphocytes Percent Auto 26.8 % (18.0-42.0); Mean Corpuscular HGB Conc 32.2 g/dL (32-36); Mean Corpuscular Hemoglobin 27.7 pg (27.0-31.0); Mean Corpuscular Volume 86.2 fL (78.0-102.0); Mean Platelet Volume 10.2 fl (9.2-11.8); Monocytes Absolute Auto 0.45 K/mm3 (0.10-0.90); Monocytes Percent Auto 6.5 % (2.0-11.0); Neutrophils Absolute Auto 4.28 K/mm3 (1.70-7.20); Neutrophils Percent Auto 62.1 % (50.0-70.0); Platelet Count Result 370 K/mm3 (150-420); Red Blood Count 4.91 M/mm3 (4.20-5.40); Red Cell Distribution Width 14.1 % (11.6-14.4); White Blood Count 6.9 K/mm3 (4.8-10.8)
[2024-03-12 10:43] LABS: Hemoglobin A1C 8.5 % (<5.7)
[2024-03-12 11:49] LABS: Alanine Aminotransferase 20 U/L (14-59); Albumin Level 3.5 g/dL (3.4-5.0); Alkaline Phosphatase 66 U/L (46-116); Anion Gap 8 mmol/L (4-12); Aspartate Amino Transferase 14 U/L (15-37); Bilirubin,Total 0.4 mg/dL (0.00-1.00); Blood Urea Nitrogen 10 mg/dL (7-18); Carbon Dioxide 31 mmol/L (21-32); Chloride 100 mmol/L (98-108); Cholesterol 206 mg/dL (0-200); Estimated Glomerular Filt Rate > 60; Glucose 104 mg/dL (70-99); HDL Direct 60 mg/dL (40-60); LDL Cholesterol Calculated 111 mg/dL (<130); Osmolality Calculated 287 mOsm/kg (285-295); Potassium 4.5 mmol/L (3.5-5.1); Sodium 139 mmol/L (136-145); Thyroid Stimulating Hormone 1.35 uIU/mL (0.36-3.74); Total Protein 7.2 g/dL (6.4-8.2); Triglycerides 175 mg/dL (0-150); Vitamin B12 394 pg/mL (193-986)
[2024-03-16 17:54] LABS: Almond (F20) IgE 0.11 kU/L; Brazil Nut (f18) <0.10 kU/L; Brazil Nut (f18) Class 0; Cashew Nut (F202) IgE <0.10 kU/L; Cashew Nut (F202) IgE Class 0; Codfish (F3) IgE <0.10 kU/L; Codfish (F3) IgE Class 0; Cow's Milk (F2) IgE 0.34 kU/L; Cow's Milk (F2) IgE Class 0/1; Egg White (F1) IgE 0.28 kU/L; Egg White (F1) IgE Class 0/1; Hazelnut (F17) IgE Class 0/1; Peanut (F13) IgE 0.85 kU/L; Peanut (F13) IgE Class 2; Salmon (F41) IgE <0.10 kU/L; Salmon (F41) IgE Class 0; Sesame Seed 0.43 kU/L; Shrimp (F24) IgE 0.11 kU/L; Soybean (F14) IgE 0.33 kU/L; Soybean (F14) IgE Class 0/1; Tuna (F40) <0.10 kU/L; Tuna (F40) Class 0; Wheat (F4) IgE 0.19 kU/L; Wheat (F4) IgE Class 0/1
[2024-03-16 18:03] LABS: Macadamia Nut (rf345) 0.27 kU/L; Macadamia Nut (rf345) Class 0/1; Scallop (F338) IgE <0.10 kU/L; Scallop (F338) IgE Class 0; Walnut (F256) IgE 0.25 kU/L; Walnut (F256) IgE Class 0/1
== END 2024-03-12 10:21 | disposition home or self-care (01) ==
LOC: CHSLAB 10:23
PROVIDERS: PCP Internal Medicine; Visit Provider Internal Medicine
DX: E78.49 Other hyperlipidemia (principal); E53.8 Deficiency of other specified B group vitamins; I10 Essential (primary) hypertension; R21 Rash and other nonspecific skin eruption
CPT/HCPCS: 36415; 80053; 80061; 82607; 83036; 84443; 85025; 86003

== ENCOUNTER 2024-09-27 10:26 | Outpatient (CLI) | payer OTHER, SELFPAY ==
[2024-09-27 10:44] LABS: Creatinine Urine 28.5 mg/dL
[2024-09-27 10:49] LABS: MALB Creatinine Ratio 21.1 mg/g (0-30); Microalbumin Urine Random < 6.0 mg/L (0-16.7)
[2024-09-27 11:28] LABS: Vitamin D 25 Hydroxy 65.5 ng/mL
[2024-09-27 11:42] LABS: Alanine Aminotransferase 19 U/L (6-35); Albumin Level 3.8 g/dL (3.5-5.1); Alkaline Phosphatase 60 U/L (38-126); Anion Gap 11 mmol/L (4-12); Aspartate Amino Transferase 22 U/L (14-36); Bilirubin,Total 0.5 mg/dL (0.2-1.3); Blood Urea Nitrogen 13 mg/dL (7-17); Calcium 8.6 mg/dL (8.4-10.2); Carbon Dioxide 22 mmol/L (22-30); Chloride 102 mmol/L (98-107); Cholesterol 135 mg/dL (0-200); Estimated Glomerular Filt Rate > 60; Glucose 351 mg/dL (65-110); HDL Direct 41 mg/dL; LDL Cholesterol Calculated 55 mg/dL (<130); Osmolality Calculated 294 mOsm/kg (285-295); Potassium 4.5 mmol/L (3.4-5.0); Sodium 135 mmol/L (137-145); Total Protein 6.6 g/dL (6.3-8.2); Triglycerides 197 mg/dL (<150)
[2024-09-27 11:43] LABS: Basophils Absolute Auto 0.11 K/mm3 (0.00-0.10); Basophils Percent Auto 1.8 % (0.0-1.0); Eosinophils Absolute Auto 0.36 K/mm3 (0.02-0.50); Eosinophils Percent Auto 5.8 % (1.0-6.0); Hematocrit 34.4 % (35.0-49.0); Hemoglobin 9.8 g/dL (12.0-15.0); Immature Granulocyte Absolute 0.03 K/mm3 (0.00-0.00); Immature Granulocyte Percent A 0.5 % (0.0-0.0); Lymphocytes Percent Auto 20.8 % (18.0-42.0); Mean Corpuscular HGB Conc 28.5 g/dL (32-36); Mean Corpuscular Volume 77.1 fL (78.0-102.0); Mean Platelet Volume 10.1 fl (9.2-11.8); Monocytes Absolute Auto 0.47 K/mm3 (0.10-0.90); Monocytes Percent Auto 7.5 % (2.0-11.0); Neutrophils Absolute Auto 3.99 K/mm3 (1.70-7.20); Neutrophils Percent Auto 63.6 % (50.0-70.0); Platelet Count Result 388 K/mm3 (150-420); Red Blood Count 4.46 M/mm3 (4.20-5.40); Red Cell Distribution Width 16.9 % (11.6-14.4); White Blood Count 6.3 K/mm3 (4.8-10.8)
[2024-09-27 11:54] LABS: Hemoglobin A1C 10.3 % (<5.7)
== END 2024-09-27 10:27 | disposition home or self-care (01) ==
LOC: CHSLAB 10:28
PROVIDERS: PCP Internal Medicine; Visit Provider Internal Medicine
DX: E53.8 Deficiency of other specified B group vitamins (principal); E55.9 Vitamin D deficiency, unspecified; E78.49 Other hyperlipidemia; E11.42 Type 2 diabetes mellitus with diabetic polyneuropathy
CPT/HCPCS: 36415; 80053; 80061; 82043; 82306; 82607; 83036; 84443; 85025

== ENCOUNTER 2024-09-29 10:04 | Outpatient (CLI) | payer OTHER, SELFPAY ==
--- NOTE | ~2024-09-29 | MM_ITS ---
EXAMINATION: MM screening [place] BI w ila HISTORY: Screening mammogram TECHNIQUE: Craniocaudal and mediolateral oblique 3-D tomosynthesis images were obtained and synthetic 2-D images were generated. CAD analysis was submitted and interpreted. COMPARISON: 01/22/2023, 10/05/2021, 01/19/2020 BREAST PARENCHYMAL COMPOSITION:Not Dense. The breasts are almost entirely fatty FINDINGS: No suspicious mass, calcification, or architectural distortion are identified in either scott ast to suggest malignancy. There has been no suspicious interval change. IMPRESSION: No mammographic evidence of malignancy. Recommend routine screening mammography in one year. BI-RADS Category 1: Negative Reviewed, dictated and finalized at location .
--- OUTSIDE RECORDS SUMMARY | 2024-09-29 10:25 | XMS_ITS | Clinical Summary ---
Author Organization [facility] Address [address] [place] [address] Care Team Providers Care Transfer Clerk Name Role Phone Hector Lopez MD Primary Care Provider [phone] Allergies Active Allergy Reactions Criticality Noted Date Comments Exenatide Nausea and Vomiting Low 12/03/2018 Liraglutide Nausea and Vomiting Low 12/03/2018 Medications multivitamin (DAILY-PATTY) tablet Take 1 Tablet by mouth daily. Active furosemide (LASIX) 20 mg tablet Take 1 Tablet (20 mg) by mouth daily. 90 Tablet 3 07/19/19 17 Active Syringe with Needle, Safety (3cc Safety Syringe 25Gx5/8) 3 mL 25 gauge x 5/8 Syringe To use with B12 injections monthly. 12 Syringe 12/04/19 17 Active lancets USE TID TO TEST BLOOD SUGAR. 100 Each 1 04/03/19 18 Active ONE TOUCH DELICA 33 gauge USE 3 TIMES DAILY TO TEST BLOOD SUGAR 300 Each 4 10/31/19 18 Active cholecalciferol , Vitamin D3, (VITAMIN D3) 1,000 unit Capsule TAKE 1 CAPSULE BY MOUTH DAILY. 120 Capsule 3 03/12/20 18 Active triamcinolone acetonide (KENALOG) 0.1 % Cream 10/09/19 19 Active ONETOUCH ULTRA BLUE TEST STRIP Strip USE 3 TIMES DAILY TO TEST BLOOD SUGAR. 300 Strip 3 01/26/20 19 Active clobetasoL (TEMOVATE) 0.05 % Cream 05/06/19 20 Active Insulin Maria Stein, Disposable, (BD Ultra-Fine Short Pen Needle) 31 gauge x 5/16 Needle USE TO INJECT TOUJEO DAILY AFTER SUPPER AND TRULICITY EVERY 7 DAYS. 104 Each 6 04/25/19 23 Active diclofenac sodium (Voltaren) 1 % gel Apply 2 Grams to affected area 4 times daily. Right elbow 300 Gram 2 04/25/19 23 Active HYDROcodone-ulises taminophen (NORCO) 5-325 mg tabletIndicatio ns:Left shoulder pain, unspecified chronicity Take 1 Tablet by mouth every 4 hours as needed for Pain, Moderate. Max Daily Amount: 6 Tablets 20 Tablet 07/13/19 23 Active cyanocobalamin (VITAMIN B-12) 1,000 mcg/mL Solution Inject 1 mL (1,000 mcg) by intramuscular injection every 30 days. Injection monthly 10 mL 6 09/13/19 23 Active cholecalciferol 1,250 mcg (50,000 unit) Capsule TAKE 1 CAPSULE BY MOUTH EVERY 7 DAYS 13 Capsule 3 04/21/19 24 Active omeprazole (PriLOSEC) 20 mg Capsule, Delayed Release(E.C.) take 1 capsule by mouth daily 100 Capsule 3 09/10/19 24 Active Jardiance 25 mg tablet TAKE ONE TABLET BY MOUTH ONCE DAILY IN THE JOURNAL CLERK 30 Tablet 11 10/13/19 24 Active insulin glargine U-300 conc (Toujeo Max U-300 SoloStar) 300 unit/mL (3 mL) Insulin PenIndications: Type 2 diabetes mellitus with peripheral neuropathy (CMS/HCC) INJECT SUBCUTANEOUSLY 100 UNITS DAILY AFTER SUPPER 30 mL 03/12/20 24 Active cyanocobalamin (VITAMIN B-12) 1,000 mcg/mL Solution Inject 1 mL (1,000 mcg) by intramuscular injection every 30 days. 10 mL 04/16/19 25 Active tirzepatide (Mounjaro) 10 mg/0.5 mL Pen Injector INJECT 10 MG SUBCUTANEOUSLY EVERY 7 DAYS 6 mL 05/03/19 25 Active gabapentin (NEURONTIN) 600 mg tablet TAKE 1 TABLET BY MOUTH 3 TIMES DAILY 270 Tablet 06/19/19 25 Active pravastatin (PRAVACHOL) 20 mg tablet Take 1 Tablet (20 mg) by mouth daily at bedtime. 100 Tablet 06/19/19 25 Active metoprolol succinate (TOPROL XL) 100 mg Extended Release 24 hour tablet Take 1 Tablet (100 mg) by mouth daily. 100 Tablet 06/19/19 25 Active estradioL (ESTRACE) 1 mg tablet Take 1 Tablet (1 mg) by mouth daily. 100 Tablet 3 06/19/19 25 Active metFORMIN (GLUCOPHAGE) 1,000 mg tabletIndicatio ns:Type 2 diabetes mellitus with peripheral neuropathy (CMS/HCC) TAKE 1 TABLET BY MOUTH TWICE DAILY WITH MEALS 200 Tablet 3 06/19/19 25 Active DULoxetine (CYMBALTA) 30 mg Capsule, Delayed Release(E.C.) Take 1 Capsule (30 mg) by mouth daily. 100 Capsule 3 06/19/19 25 Active estradioL (ESTRACE) 1 mg tablet Take 1 Tablet (1 mg) by mouth daily. 90 Tablet 1 08/07/19 25 Active Active Problems Patient Care Coordination No te Formatting of this note migh t be different from the original. Prev 03/26/24 Problem Noted Date Diagnosed Date Multiple food allergies 03/26/2024 Recurrent major depressive disorder 03/26/2024 Multiple thyroid nodules 04/25/2022 Other sleep apnea 04/25/2022 Essential hypertension 02/15/2021 Vitamin B12 deficiency (non anemic) 06/24/2017 Vitamin D deficiency 06/24/2017 Type 2 diabetes mellitus with peripheral neuropa thy 07/18/2016 Rash 07/18/2016 Peripheral polyneuropathy 07/18/2016 Generalized edema 07/18/2016 Resolved Problems Problem Noted Date Diagnosed Date Resolved Date Morbid obesity 07/18/2016 03/26/2024 Encounters Date Type Department Care Team Description 09/15/2024 External Device Data STL ABSTRACTION Provider, Abstract 09/15/2024 External Device Data STL ABSTRACTION Provider, Abstract 08/26/2024 Orders Only [place] [address] [place] [id number] Hector Lopez MD Type 2 diabetes mellitus with peripheral neuropathy (CMS/HCC) 08/20/2024 External Device Data STL ABSTRACTION Provider, Abstract 08/19/2024 External Device Data ST[facility] ABSTRACTION Provider, Abstract 08/19/2024 External Device Data ST[facility] ABSTRACTION Provider, Abstract 08/18/2024 External Device Data ST[facility] ABSTRACTION Provider, Abstract 08/06/2024 Telephone [place] [address] [place] [phone] Hector Lopez MD Information 07/26/2024 Orders Only [facility] [address] [place] [address] Hector Lopez MD Type 2 diabetes mellitus with peripheral neuropathy (CMS/HCC) from Last 3 Months Immunizations Immunization Administration Dates Next Due (ADACEL/BOOSTRIX)(10 YR UP) TDAP VACCINE, 0.5ML, IM 03/31/2015,01/02/2011 (PFIZER VINNIE)(12 YR UP PRIMA RY SERIES) COVID-19 VACCINE - EMERGENCY USE AUTHORIZATION, MRNA, VINNIE(PF) 30 MCG/0.3 ML IM SUSP 01/25/2023 (PNEUMOVAX 23)(50 YRS UP) PN EUMOCOCCAL POLYSACCHARIDE (PPV23) 0.5 ML, IM 12/29/2012 (PREVNAR 13)(6 WKS UP) PNEUM OCOCCAL CONJUGATE (PCV13) 0.5 ML, IM 02/24/2017 (PREVNAR 20)(6 WKS UP) PNEUM OCOCCAL CONJUGATE VACCINE 20-VALENT (PCV20), POLYSACCHARIDE [id number] CONJUGATE, ADJUVANT 0.5 ML (PF) IM 05/16/2022 (Pfizer Bivalent)(12 Yr Up) COVID-19 Vaccine - Emergency Use Authorization, MRNA, Lnp-S(Pf) 30 Mcg/0.3 Ml Susp 12/21/2021 (SHINGRIX)(50 YRS UP) ZOSTER VACCINE RECOMBINANT, 0.5 ML, IM 02/01/2019,12/03/2018 (SPIKEVAX) (12 YRS UP PRIMAR Y SERIES) COVID-19 VACCINE - MRNA-1273(PF) 100 MCG/0.5 ML IM SUSP 07/23/2021,02/02/2021,04/24/2020,03/28 (TDVAX)(7 YRS UP) TETANUS AN D DIPHTHERIA TOXOIDS, ADSORBED (2 LF OF TETANUS TOXOID AND 2 LF OF DIPHTHERIA TOXOID), 0.5ML (PF), IM 12/17/2001 Hepatitis A Vaccine 07/08/2002,12/17/2001 INFLUENZA VACCINE QUADRIVALE NT 6 MOS UP IM 01/08/2023,02/28/2015 INFLUENZA VACCINE TRIVALENT SPLIT VIRUS, (6 MOS UP), 0.5ML (PF), IM 12/30/2023 Influenza Seasonal Unspecifi ed Formulation IM 12/29/2021,01/02/2021,01/13/2020,12/30,12/29/2017,01/02/2017,01/18/2016 Influenza Vaccine Split 3+ Yrs IM 12/29/2013 Influenza Vaccine Tri Split 4+ Im 12/29/2013 PNEUMOVAX (PPSV23) pneumococ marisa polysaccharide 23-valent Vaccine 03/31/2015 PREVNAR (PCV13) pneumococcal 13-valent conjugate Vaccine 02/24/2017 Pneumococcal Polysaccharide Vacc 23-basia IM SCHIP 12/29/2012,02/07/2012 Family History Medical History Relation Name Comments Diabetes Father Hypertension Father Other Father Diabetes Mother Heart Disease Mother Hypertension Sister 1 Relation Name Status Comments Brother Daughter Alive Father Alive arthritis Maternal Grandfather Maternal Grandmother Mother Paternal Grandfather Paternal Grandmother Sister 1 Alive Sister 2 Alive Son Alive Social History Tobacco Use Types Packs/Day Years Used Date Smoking Tobacco: Former Cigarettes 1 6 Passive Smoke Exposure: Past Smokeless Tobacco: Never Tobacco Cessation:Counseling Given: No Alcohol Use Standard Drinks/Week Comments Yes 0 (1 standard drink = 0.6 oz pur e alcohol) social Comments No Sex and Gender Information Value Date Recorded Sex Assigned at Not on file Legal Sex Female 5:17 PM CDT Gender Identity Not on file Sexual Orientation Not on file Last Filed Vital Signs Vital Sign Reading Time Taken Comments Blood Pressure 108/73 03/26/2024 9:09 AM SUPPLY CONTROLLER Pulse 88 03/26/2024 9:09 AM SUPPLY CONTROLLER Temperature 36.6 C (97.9 F) 03/18/2023 10:41 AM SUPPLY CONTROLLER Respiratory Rate 16 03/18/2023 10:41 AM SUPPLY CONTROLLER Oxygen Saturation 98% 03/26/2024 9:09 AM SUPPLY CONTROLLER Inhaled Oxygen Concentration - - Weight 88.6 kg (195 lb 6.4 oz) 03/26/2024 9:09 A M SUPPLY CONTROLLER Height 162.6 cm (5' 4) 03/26/2024 9:09 AM SUPPLY CONTROLLER Body Mass Index 33.54 03/26/2024 9:09 AM SUPPLY CONTROLLER Plan of Treatment Upcoming Encounters Date Type Department Care Team (Late st Contact Info) Description 09/30/2024 11:40 AM CDT Office Visit [facility] [address] [facility] [address] [place] [address] Hector Lopez MD [address] [facility] [address] [place] [phone] Health Maintenance Due Date Last Done Comments HEPATITIS B VACCINES (1 of 3 - 19+ 3-dose series) 1985 HPV/Cotest (21-29) 1987 HPV/Cotest (30-65) 02/17/1996 FIT/FOBT Q 1 year 2011 Flex Sig/CT Colonography Q 5 years 2011 CERVICAL CANCER SCREENING 12/01/2020 PAP SMEAR 12/01/2020 12/01/2017 (Prev iously completed), 08/07/2017 COVID-19 Vaccine (2023-2 5 season) 2023 01/25/2023, 01/25/2023, 12/21/2021, Additional history exists BREAST CANCER SCREENING 01/23/2024 01/23/20, 10/05/2021, 01/19/2020, Additional history exists DIABETES MICROALBUMIN ANNUAL SCREEN 03/14/2024 03/14/2023, 03/14/2023, 04/25/2022, Additional history exists Preventative Visit- Commercial 03/31/2024 1 05/27/2023, 04/25/2022, 08/21/2021, Additional history exists DIABETES: A1C (Auto Order) 06/10/202403/12, 03/14/2023, 04/25/2022, Additional history exists DIABETES HBA1C Q 6 MONTHS 09/10/20242023, 03/14/2023, 04/25/2022, Additional history exists INFLUENZA VACCINE (#1) 2024 , 01/08/2023, 12/29/2021, Additional history exists LDL CHOLESTEROL ANNUAL 03/12/2025 4, 04/22/2022, 10/11/2021, Additional history exists DIABETES ANNUAL FOOT EXAM 03/26/20252023, 04/25/2022, 04/25/2022, Additional history exists DTAP/TDAP/TD VACCINES (3 - T d or Tdap) 03/31/2025 03/31/2015, 01/02/2011, 12/17/2001 DIABETES ANNUAL RETINAL EXAM 04/15/2025 04/15/2024, 04/15/2024 FIT-DNA Q 3 years 05/04/2025 05/04/2022, 03/15/2018 COLORECTAL SCREENING 03/15/2028 03/15/2018 Colorectal Cancer Screening 03/15/2028 ZOSTER VACCINE Completed 02/01/2019, 12/03/2018 Procedures Procedure Name Priority Date/Time Associated Diagnosis Comments DIABETES EYE EXAM Routine 04/15/2024 10:03 AM SUPPLY CONTROLLER LIPID PANEL Routine 03/12/2024 2:05 PM SUPPLY CONTROLLER Other hyperlipidemia HEMOGLOBIN A1C Routine 03/12/2024 1:42 PM SUPPLY CONTROLLER Type 2 diabetes mellitus with peripheral neuropathy (CMS/HCC) MICROALBUMIN/CREATI NINE RATIO, RANDOM UR Routine 03/14/2023 9:00 AM SUPPLY CONTROLLER MAMMO SCREEN BILAT W OR WO CAD Routine 01/22/2023 6:31 PM CDT COLON CANCER SCREEN, STOOL DNA Routine 05/04/2022 3:30 PM SUPPLY CONTROLLER Screening for colon cancer CERV/VAG CYTOPATH, SUREPATH Routine 08/07/2017 from Last 3 Months or Most Recently Relevant to Health Maintenance Results * DIABETES EYE EXAM (04/15/2024 10:03 AM SUPPLY CONTROLLER) us Hector Lopez MD HEALTH MAINTENANCE Final Resu lt [facility] CLIA# [id number] [address] [address] * (ABNORMAL) LIPID PANEL (03/12/2024 2:05 PM SUPPLY CONTROLLER) CHOLESTEROL 206(A) 0 - 200 mg/dL EXTERNAL LAB TRIGLYCERIDES, DIRECT 175(A) 0 - 150 mg/dL EXTERNAL LAB HDL CHOLESTEROL 60 40 - 60 mg/dL EXTERNAL LAB LDL CHOLESTEROL 111 <130 mg/dL EXTERNAL LAB Blood 03/12/2024 2:05 PM SUPPLY CONTROLLER Hector Lopez MD CHEMISTRY ORDERABLES Edited R esult - Final Performing Organization Address [facility] Co de Phone Number EXTERNAL LAB * (ABNORMAL) HEMOGLOBIN A1C (03/12/2024 1:42 PM SUPPLY CONTROLLER) Pathologist [facility] [place] HEMOGLOBIN A1C 8.5(A) <5.7 % EXTERNAL LAB Blood 03/12/2024 1:42 PM SUPPLY CONTROLLER Hector Lopez MD CHEMISTRY ORDERABLES Final Re sult Performing Organization Address [facility] de Phone Number EXTERNAL LAB * MICROALBUMIN/CREATININE RATIO, RANDOM UR (03/14/2023 9:00 AM SUPPLY CONTROLLER) Pathologist [facility] ABSTRACTED MICROALBUMIN,UR INE 9.7 [facility] ABSTRACTED CREATININE, URINE [facility] ABSTRACTED MICROALBUMIN/CR EATININE RATIO, URINE [facility] Urine URINE SPECIMEN OBTAINED BY CLEAN CATCH PROCEDURE / Unknown 03/14/2023 9:00 AM SUPPLY CONTROLLER Hector Lopez MD URINE ORDERABLES Final Result Performing Organization Address [facility] de Phone Number [facility] CLIA# [id number] [address] [place] [address] * MAMMO SCREEN BILAT W OR WO CAD (01/22/2023 6:31 PM CDT) Anatomical Region Laterality Modality Breast Bilateral Mammography Abstract Provider MAMMO ORDERABLES Edited Result - Final * COLON CANCER SCREEN, STOOL DNA (05/04/2022 3:30 PM SUPPLY CONTROLLER) COLOGUARD RESULT Negative Negative [employer] Comment: NEGATIVE TEST RESULT. A negative Cologuard result indicates a low likelihood that a colorectal cancer (CRC) or advanced adenoma (adenomatous polyps with more advanced pre-malignant features) is present. The chance that a person with a negative Cologuard test has a colorectal cancer is less than 1 in 1500 (negative predictive value >99.9%) or has an advanced adenoma is less than 5.3% (negative predictive value 94.7%). These data are based on a prospective cross-sectional study of 10,000 individuals at average risk for colorectal cancer who were screened with both Cologuard and colonoscopy. (Memo Herrera. et al, N Engl J Med 2014;370(14):8228-9091) The normal value (reference range) for this assay is negative. COLOGUARD RE-SCREENING RECOMMENDATION: Periodic colorectal cancer screening is an important part of preventive healthcare for asymptomatic individuals at average risk for colorectal cancer. Following a negative Cologuard result, the [place] Cancer Society and U.S. Multi-Society Task Force screening guidelines recommend a Cologuard re-screening interval of 3 years. References: [place] [employer] Society Guideline for Colorectal Cancer Screening: https://www.cancer.org/cancer/hyehz-jhdqjj-bwotxk/pdgcrkiyr-npbfilkyl-lwqwupw/ac s-rec ommendations.html.; Brandon SCHNEIDER, Riley NEFF, Luca AdamsK, Colorectal Cancer Screening: Recommendations for Physicians and Patients from the U.S. Multi-Society Task Force on Colorectal Cancer Screening , Am J Gastroenterology 2017; 112:9454-2809. TEST DESCRIPTION: Composite algorithmic analysis of stool DNA-biomarkers with hemoglobin immunoassay. Quantitative values of individual biomarkers are not reportable and are not associated with individual biomarker result reference ranges. Cologuard is intended for colorectal cancer screening of adults of either sex, 45 years or older, who are at average-risk for colorectal cancer (CRC). Cologuard has been approved for use by the U.S. FDA. The performance of Cologuard was established in a cross sectional study of average-risk adults aged 50-84. Cologuard performance in patients ages 45 to 49 years was estimated by sub-group analysis of near-age groups. Colonoscopies performed for a positive result may find as the most clinically significant lesion: colorectal cancer [4.0%], advanced adenoma (including sessile serrated polyps greater than or equal to 1cm diameter) [20%] or non- advanced adenoma [31%]; or no colorectal neoplasia [45%]. These estimates are derived from a prospective cross-sectional screening study of 10,000 individuals at average risk for colorectal cancer who were screened with both Cologuard and colonoscopy. (Memo Jones et al, N Engl J Med 2014;370(14):1938-6841.) Cologuard may produce a false negative or false positive result (no colorectal cancer or precancerous polyp present at colonoscopy follow up). A negative Cologuard test result does not guarantee the absence of CRC or advanced adenoma (pre-cancer). The current Cologuard screening interval is every 3 years. ([place] Cancer Society and U.S. Multi-Society Task Force). Cologuard performance data in a 10,000 patient pivotal study using colonoscopy as the reference method can be accessed at the following location: www.[employer]/results. Additional description of the Cologuard test process, warnings and precautions can be found at www.[employer].comogPAYMILLrd.com. Stool STOOL SPECIMEN / Unknown 05/04/2022 3:30 PM SUPPLY CONTROLLER 05/07/2022 8:02 PM SUPPLY CONTROLLER us Hector Lopez MD BODY FLUIDS AND STOOLS Final Result Performing Organization Address City/[facility]/ZIP Co de Phone Number [employer] [place] # [id number] [facility] [place] [facility], [address] [place] [address] * CERV/VAG CYTOPATH, SUREPATH (08/07/2017) Genital SWAB OF ENDOCERVIX / Unknown us Abstract Provider PATHOLOGY/CYTOLOGY ORDERABLES Final Result [facility] [id number] [address] [place] [address] from Last 3 Months or Most Recently Relevant to Health Maintenance Insurance RX [employer] RX Member Subscriber Plan / Payer (Ef fective 2021-Present) Name:Cathi Winters Relation to Subscriber:Not on file Name:Cathi Winters Subscriber ID:Not on file Date of :1965 (Work) Payer ID:Not on file Type:RX Commercial Address: [place] Care Teams Transfer Clerk Relationship Specialty Start Date End Date Hector Lopez MD PCP - General Internal Medicine 07/03/16
--- OUTSIDE RECORDS SUMMARY | 2024-09-29 10:25 | XMS_ITS | Clinical Summary ---
Author Organization [facility] Address [address] [facility] [place] [address] Care Team Providers Care Basin Tender Name Role Phone Unavailable Primary Care Provider Unavailabl e Source Comments [facility],non-owned Affiliates and Associated Physician Practices is amultiple site organization consisting of ambulatory clinics and hospital sitesin [place], [place], [place] and [place]. This disclosure is being madepursuant to the Care Everywhere program and may not contain all information available regarding this patient. Last updated 17.[facility] Social History Tobacco Use Types Packs/Day Years Used Date Smoking Tobacco: Never Assessed Comments Unknown Sex and Gender Information Value Date Recorded Sex Assigned at Not on file Legal Sex Female 6:19 AM SETTLEMENT TECHNICIAN Gender Identity Not on file Sexual Orientation Not on file Plan of Treatment Health Maintenance Due Date Last Done Comments COLOGUARD (AGES 45-75) - COL ON CA SCREENING 1966 COLON MONITORING 1966 COLONOSCOPY - COLON CA SCREENING 1966 CT COLONOGRAPHY - COLON CA SCREENING 1966 Colorectal Cancer Screening 1966 FIT - COLON CA SCREENING 1966 FLEX SIG - COLON CA SCREENING 1966 LIPID TESTING 1966 MAMMOGRAM 1966 HIV SCREENING 1981 HEPATITIS C SCREENING 02/12/1984 DTAP/TDAP/TD VACCINES (1 - Tdap) 1985 HEPATITIS B VACCINE (1 of 3 - 19+ 3-dose series) 1985 PNEUMOCOCCAL VACCINE 50+ (1 of 1 - PCV) 02/17/2016 ZOSTER VACCINE (1 of 2) 02/17/2016 COVID-19 VACCINE ( - 2023-2 5 season) 2023 DEPRESSION SCREENING 03/31/2024 INFLUENZA VACCINE (Season Ended) 2024 HIB VACCINE Aged Out No longer eligi ble based on patient's age to complete this topic HPV VACCINE Aged Out No longer eligi ble based on patient's age to complete this topic MENINGOCOCCAL (Group B) VACC INE SHARED DECISION-MAKING Aged Out No longer eligibl e based on patient's age to complete this topic MENINGOCOCCAL GROUPS A/C/Y/W VACCINE Aged Out No longer eligible b ased on patient's age to complete this topic Insurance [facility]
== END 2024-09-29 10:05 | disposition home or self-care (01) ==
LOC: CHSIMG 10:06
PROVIDERS: PCP Internal Medicine; Visit Provider Internal Medicine
DX: Z12.31 Encounter for screening mammogram for malignant neoplasm of breast (principal)
CPT/HCPCS: 77063; 77067

== ENCOUNTER 2024-10-04 12:04 | Outpatient (CLI) | payer OTHER, SELFPAY ==
--- OUTSIDE RECORDS SUMMARY | 2024-10-04 12:09 | XMS_ITS | Clinical Summary ---
Author Organization [facility] Address [address] [facility] [place] [address] Care Team Providers Care Repair Clerk Name Role Phone Unavailable Primary Care Provider Unavailabl e Source Comments [facility]non-owned Affiliates and Associated Physician Practices is amultiple site organization consisting of ambulatory clinics and hospital sitesin [place], [place], [place] and [place]. This disclosure is being madepursuant to the Care Everywhere program and may not contain all information available regarding this patient. Last updated 17.[facility] Social History Tobacco Use Types Packs/Day Years Used Date Smoking Tobacco: Never Assessed Comments Unknown Sex and Gender Information Value Date Recorded Sex Assigned at Not on file Legal Sex Female 6:19 AM COTTON WASHER Gender Identity Not on file Sexual Orientation [...] patient's age to complete this topic Insurance [facility]
--- OUTSIDE RECORDS SUMMARY | 2024-10-04 12:09 | XMS_ITS | Clinical Summary ---
Author Organization [facility] Address [address] [place] [address] Care Team Providers Care Rolling Chair Pusher Name Role Phone Hector Lopez MD Primary Care Provider [phone] Allergies Active Allergy Reactions Criticality Noted Date [...] 0.05 % Cream 05/06/19 20 Active Insulin Cameron, Disposable, (BD Ultra-Fine Short Pen Needle) 31 gauge x 5/16 Needle USE TO INJECT TOUJEO DAILY AFTER SUPPER AND TRULICITY EVERY 7 DAYS. 104 Each 6 04/25/19 23 Active diclofenac sodium (Voltaren) 1 % gel Apply 2 Grams to affected area 4 times daily. Right elbow 300 Gram 2 04/25/19 23 Active HYDROcodone-ulsies taminophen (NORCO) 5-325 mg tabletIndicatio ns:Left shoulder [...] TABLET BY MOUTH ONCE DAILY IN THE MECHANICAL ENGINEERING INTERN 30 Tablet 11 10/13/19 24 Active insulin glargine U-300 conc (Toujeo Max U-300 SoloStar) 300 unit/mL (3 mL) Insulin PenIndications: Type 2 diabetes mellitus with peripheral neuropathy (CMS/HCC) INJECT SUBCUTANEOUSLY 100 UNITS DAILY AFTER SUPPER 30 mL 03/12/20 24 Active tirzepatide (Mounjaro) 10 mg/0.5 mL Pen [...] (1 mg) by mouth daily. 100 Tablet 06/19/19 25 Active metFORMIN (GLUCOPHAGE) 1,000 mg [...] daily. 90 Tablet 1 08/07/19 25 Active cyanocobalamin (VITAMIN B-12) 1,000 mcg/mL Solution Inject 1 mL (1,000 mcg) by intramuscular injection every 30 days. 10 mL 3 10/01/19 25 Active cyanocobalamin (VITAMIN B-12) 1,000 mcg/mL Solution Inject 1 mL (1,000 mcg) by intramuscular injection every 30 days. 10 mL 3 04/16/19 25 025 Discontin ued(Reord er) Active Problems Patient Care Coordination No te Formatting of this note migh t be different from the original. Prev 09/30/24 Problem Noted Date Diagnosed Date Multiple food [...] Encounters Date Type Department Care Team Description 09/30/2024 11:40 AM CDT Office Visit [facility] Primary Care [address] [place] [address] Hector Lopez MD Microcytic anemia (Primary Dx); Type 2 diabetes mellitus with peripheral neuropathy (CMS/HCC); Encounter for routine adult health examination with abnormal findings; Other hyperlipidemia; Vitamin B12 deficiency (non anemic); Essential hypertension; Recurrent major depressive disorder, remission status unspecified 09/15/2024 External Device Data STL ABSTRACTION Provider, Abstract 09/15/2024 External Device Data STL ABSTRACTION Provider, Abstract 08/26/2024 Orders Only [facility] [address] [place] [address] Hector Lopez MD Type 2 diabetes mellitus with peripheral neuropathy ([facility]/HCC) 08/20/2024 External Device Data STL ABSTRACTION Provider, Abstract 08/19/2024 External Device Data STL ABSTRACTION Provider, Abstract 08/19/2024 External Device Data STL ABSTRACTION Provider, Abstract 08/18/2024 External Device Data STL ABSTRACTION Provider, Abstract 08/06/2024 Telephone [facility] [address] [place] [address] Hector Lopez MD Information 07/26/2024 Orders Only [facility] [address] [place] [address] Hector Lopez MD Type 2 diabetes mellitus with peripheral neuropathy ([facility]/HCC) from Last 3 Months Immunizations Immunization Administration [...] PNEUM OCOCCAL CONJUGATE VACCINE 20-VALENT (PCV20), POLYSACCHARIDE [id number] CONJUGATE, ADJUVANT 0.5 ML (PF) IM 05/16/2022 [...] Sign Reading Time Taken Comments Blood Pressure 115/68 09/30/2024 11:27 AM CDT Pulse 74 09/30/2024 11:27 AM CDT Temperature 36.6 C (97.9 F) 03/18/2023 10:41 AM FISH HATCHERY ASSISTANT Respiratory Rate 16 03/18/2023 10:41 AM FISH HATCHERY ASSISTANT Oxygen Saturation 97% 09/30/2024 11:27 AM CDT Inhaled Oxygen Concentration - - Weight 89.4 kg (197 lb) 09/30/2024 11:27 AM CDT Height 162.6 cm (5' 4) 09/30/2024 11:27 AM CDT Body Mass Index 33.81 09/30/2024 11:27 AM CDT Plan of Treatment Upcoming Encounters Date Type Department Care Team (Late st Contact Info) Description 02/10/2025 10:00 AM FISH HATCHERY ASSISTANT Office Visit [facility] Primary Care [address] [place] [address] Hector Lopez MD [address] [place] [address] [address] [place] [address] Health Maintenance Due Date Last Done Comments [...] Additional history exists LDL CHOLESTEROL ANNUAL 03/12/2025 , 04/22/2022, 10/11/2021, Additional history exists DIABETES ANNUAL FOOT EXAM 03/26/20252023, 04/25/2022, 04/25/2022, Additional history exists DTAP/TDAP/TD VACCINES (3 - T d or Tdap) 03/31/2025 03/31/2015, 01/02/2011, 12/17/2001 DIABETES ANNUAL RETINAL EXAM 04/15/2025 04/15/2024, 04/15/2024 FIT-DNA Q 3 years 05/04/2025 05/04/2022, 03/15/2018 COLORECTAL SCREENING 03/15/2028 03/15/2018 Colorectal Cancer Screening 03/15/2028 ZOSTER VACCINE Completed 02/01/2019, 12/03/2018 Procedures Procedure Name Priority Date/Time Associated Diagnosis Comments HM DIABETES EYE EXAM Routine 04/15/2024 10:03 AM FISH HATCHERY ASSISTANT LIPID PANEL Routine 03/12/2024 2:05 PM FISH HATCHERY ASSISTANT Other hyperlipidemia HEMOGLOBIN A1C Routine 03/12/2024 1:42 PM FISH HATCHERY ASSISTANT Type 2 diabetes mellitus with peripheral neuropathy (CMS/HCC) MICROALBUMIN/CREATI NINE RATIO, RANDOM UR Routine 03/14/2023 9:00 AM FISH HATCHERY ASSISTANT MAMMO SCREEN BILAT W OR WO CAD Routine 01/22/2023 6:31 PM CDT COLON CANCER SCREEN, STOOL DNA Routine 05/04/2022 3:30 PM FISH HATCHERY ASSISTANT Screening for colon cancer CERV/VAG CYTOPATH, SUREPATH Routine 08/07/2017 from Last 3 Months or Most Recently Relevant to Health Maintenance Results * HM DIABETES EYE EXAM (04/15/2024 10:03 AM FISH HATCHERY ASSISTANT) Hector Lopez MD HEALTH MAINTENANCE Final Resu lt Performing Organization Address City/[facility]/ZIP Co de Phone Number [facility] CLIA# [id number] [address] [facility] [address] [place] [address] * (ABNORMAL) LIPID PANEL (03/12/2024 2:05 PM FISH HATCHERY ASSISTANT) CHOLESTEROL 206(A) 0 - 200 mg/dL EXTERNAL LAB TRIGLYCERIDES, DIRECT 175(A) 0 - 150 mg/dL EXTERNAL LAB HDL CHOLESTEROL 60 40 - 60 mg/dL EXTERNAL LAB LDL CHOLESTEROL 111 <130 mg/dL EXTERNAL LAB Blood 03/12/2024 2:05 PM FISH HATCHERY ASSISTANT Hector Lopez MD CHEMISTRY ORDERABLES Edited R esult - Final Performing Organization Address City/[facility]/ZIP Co de Phone Number EXTERNAL LAB * (ABNORMAL) HEMOGLOBIN A1C (03/12/2024 1:42 PM FISH HATCHERY ASSISTANT) HEMOGLOBIN A1C 8.5(A) <5.7 % EXTERNAL LAB Blood 03/12/2024 1:42 PM FISH HATCHERY ASSISTANT Hector Lopez MD CHEMISTRY ORDERABLES Final Re sult Performing Organization Address City/[facility]/ZIP Co de Phone Number EXTERNAL LAB * MICROALBUMIN/CREATININE RATIO, RANDOM UR (03/14/2023 9:00 AM FISH HATCHERY ASSISTANT) ABSTRACTED MICROALBUMIN,UR INE 9.7 [facility] ABSTRACTED CREATININE, URINE [facility] ABSTRACTED MICROALBUMIN/CR EATININE RATIO, URINE [facility] Urine URINE SPECIMEN OBTAINED BY CLEAN CATCH PROCEDURE / Unknown 03/14/2023 9:00 AM FISH HATCHERY ASSISTANT Hector Lopez MD URINE ORDERABLES Final Result [facility]# [id number] [address] [facility] [address] [place] [address] * MAMMO SCREEN BILAT W OR WO CAD (01/22/2023 6:31 PM CDT) Anatomical Region Laterality Modality Breast Bilateral Mammography Abstract Provider MAMMO ORDERABLES Edited Result - Final * COLON CANCER SCREEN, STOOL DNA (05/04/2022 3:30 PM FISH HATCHERY ASSISTANT) COLOGUARD RESULT Negative Negative [facility] Comment: NEGATIVE TEST RESULT. A negative Cologuard [...] screened with both Cologuard and colonoscopy. (Memo Oliver al, N Engl J Med 2014;370(14):5598-6821) The normal value (reference range) for this assay is negative. COLOGUARD RE-SCREENING RECOMMENDATION: Periodic colorectal cancer screening is an important part of preventive healthcare for asymptomatic individuals at average risk for colorectal cancer. Following a negative Cologuard result, the [place] Cancer Society and U.S. Multi-Society Task Force screening guidelines recommend a Cologuard re-screening interval of 3 years. References: [place] Cancer Society Guideline for Colorectal Cancer Screening: https://www.cancer.org/cancer/pbhxp-dzntck-bylmjr/srmbtfwsk-ndtlbwvxs-vwbwujr/ac s-rec ommendations.html.; Brandon DK, Riley CR, Luca DAVIS, Colorectal Cancer Screening: Recommendations for Physicians and Patients from the U.S. Multi-Society Task Force on Colorectal Cancer Screening , Am J Gastroenterology 2017; 112:5237-4590. TEST DESCRIPTION: Composite algorithmic analysis of stool [...] Herrera. et al, N Engl J Med 2014;370(14):9658-9339.) Cologuard may produce a false negative or false positive result (no colorectal cancer or precancerous polyp present at colonoscopy follow up). A negative Cologuard test result does not guarantee the absence of CRC or advanced adenoma (pre-cancer). The current Cologuard screening interval is every 3 years. ([place] Cancer Society and U.S. Multi-Society Task Force). Cologuard performance data in a 10,000 patient pivotal study using colonoscopy as the reference method can be accessed at the following location: www.[employer].com/results. Additional description of the Cologuard test process, warnings and precautions can be found at www.[email or web address] [email or web address]. Stool STOOL SPECIMEN / Unknown 05/04/2022 3:30 PM FISH HATCHERY ASSISTANT 05/07/2022 8:02 PM FISH HATCHERY ASSISTANT Hector Lopez MD BODY FLUIDS AND STOOLS Final Result [facility] CLIA # [id number] [address] , [address] [place] [address] * CERV/VAG CYTOPATH, SUREPATH (08/07/2017) Genital SWAB OF ENDOCERVIX / Unknown us Abstract Provider PATHOLOGY/CYTOLOGY ORDERABLES Final Result [facility] INTERNAL MEDICINE [id number] [address] [place] [address] from Last 3 Months or Most Recently Relevant to Health Maintenance Insurance RX [employer] RX Member Subscriber Plan / Payer (Ef fective 2021-Present) Name:Cathi Winters Relation to Subscriber:Not on file Name:Cathi Winters Subscriber ID:Not on file Date of :1965 (Work) Payer ID:Not on file Type:RX Commercial Address: [address] [address] Care Teams Rolling Chair Pusher Relationship Specialty Start Date End Date Hector Lopez MD PCP - General Internal Medicine 07/03/16
[2024-10-04 13:02] LABS: Iron 35 ug/dL (37-170)
[2024-10-04 13:12] LABS: Percent Iron Saturation 7 % (20-50)
[2024-10-04 13:39] LABS: Ferritin 6.35 ng/mL (11.1-264)
== END 2024-10-04 12:05 | disposition home or self-care (01) ==
LOC: CHSLAB 12:07
PROVIDERS: PCP Internal Medicine; Visit Provider Internal Medicine
DX: D50.9 Iron deficiency anemia, unspecified (principal)
CPT/HCPCS: 36415; 82728; 83540; 83550

== ENCOUNTER 2024-10-15 09:55 | Outpatient (CLI) | payer OTHER, SELFPAY ==
--- OUTSIDE RECORDS SUMMARY | 2024-10-15 10:03 | XMS_ITS | Clinical Summary ---
Author Organization [facility] Address [address] [place] [address] Care Team Providers Care Equipment Worker Name Role Phone Hector Lopez MD Primary Care Provider [phone] Allergies Active Allergy Reactions Criticality Noted Date [...] 0.05 % Cream 05/06/19 20 Active Insulin Sesser, Disposable, (BD Ultra-Fine Short Pen Needle) 31 [...] TABLET BY MOUTH ONCE DAILY IN THE SUGARCANE PLANTER 30 Tablet 11 10/13/19 24 Active insulin [...] days. 10 mL 3 10/01/19 25 Active ferrous sulfate 325 mg (65 mg iron) tablet Take 1 Tablet (325 mg) by mouth daily. 90 Tablet 1 10/05/19 25 Active cyanocobalamin (VITAMIN B-12) 1,000 mcg/mL [...] Encounters Date Type Department Care Team Description 10/13/2024 External Device Data STL ABSTRACTION Provider, Abstract 10/06/2024 Orders Only [place] [address] [place] [phone] Provider, Abstract 09/30/2024 11:40 AM CDT Office Visit [place] [address] [place] [phone] Hector Lopez MD Microcytic anemia (Primary Dx); Type 2 diabetes mellitus with peripheral neuropathy (CMS/HCC); Encounter for routine adult health examination with abnormal findings; Other hyperlipidemia; Vitamin B12 deficiency (non anemic); Essential hypertension; Recurrent major depressive disorder, remission status unspecified 09/15/2024 External Device Data STL ABSTRACTION Provider, Abstract 09/15/2024 External Device Data STL ABSTRACTION Provider, Abstract 08/26/2024 Orders Only [address] [place] [address] Hector Lopez MD Type 2 diabetes mellitus with peripheral neuropathy (CMS/HCC) 08/20/2024 External Device Data STL ABSTRACTION Provider, Abstract 08/19/2024 External Device Data STL ABSTRACTION Provider, Abstract 08/19/2024 External Device Data STL ABSTRACTION Provider, Abstract 08/18/2024 External Device Data STL ABSTRACTION Provider, Abstract 08/06/[address] [place] [address] Hector Lopez MD Information 07/26/2024 Orders Only [address] [place] [address] Hector Lopez MD Type 2 diabetes mellitus [...] PNEUM OCOCCAL CONJUGATE VACCINE 20-VALENT (PCV20), POLYSACCHARIDE [id number] CONJUGATE, ADJUVANT 0.5 ML (PF) IM 05/16/2022 [...] 36.6 C (97.9 F) 03/18/2023 10:41 AM HITCHER Respiratory Rate 16 03/18/2023 10:41 AM HITCHER Oxygen Saturation 97% 09/30/2024 11:27 AM CDT Inhaled Oxygen Concentration - - Weight 89.4 kg (197 lb) 09/30/2024 11:27 AM CDT Height 162.6 cm (5' 4) 09/30/2024 11:27 AM CDT Body Mass Index 33.81 09/30/2024 11:27 AM CDT Plan of Treatment Upcoming Encounters Date Type Department Care Team (Latest Contact Info) Description 11/09/2024 7:40 AM CDT Hospital Encounter [facility] [address] [place] [address] Ricardo Nix MD [address] [facility] [address] [place] [address] Other iron deficiency anemia 11/09/2024 7:40 AM CDT - 11/09/2024 8:20 AM CDT Surgery [facility] [address] [place] [address] Ricardo Nix MD [address] [facility] [address] [place] [address] ESOPHAGOGASTRODUODENOSCOPY 02/10/2025 10:00 AM HITCHER Office Visit [address] [place] [address] Hector Lopez MD [address] [place] [address] Scheduled Procedures Name Priority Associated Diagnoses Date/Ti me ESOPHAGOGASTRODUODENOSCOPY Other iron deficiency anemia Screening for colon cancer 11/09/2024 7:40 AM CDT COLONOSCOPY Other iron deficiency anemia Screening for colon cancer 11/09/2024 7:40 AM CDT Health Maintenance Due Date Last Done Comments [...] Additional history exists INFLUENZA VACCINE (#1) 2024 4, 01/08/2023, 12/29/2021, Additional history exists LDL CHOLESTEROL [...] Procedure Name Priority Date/Time Associated Diagnosis Comments CBC WITH DIFFERENTIAL Routine 09/27/2024 3:59 PM CDT HM DIABETES EYE EXAM Routine 04/15/2024 10:03 AM HITCHER LIPID PANEL Routine 03/12/2024 2:05 PM HITCHER Other hyperlipidemia HEMOGLOBIN A1C Routine 03/12/2024 1:42 PM HITCHER Type 2 diabetes mellitus with peripheral neuropathy (CMS/HCC) MICROALBUMIN/CREATIN INE RATIO, RANDOM UR Routine 03/14/2023 9:00 AM HITCHER MAMMO SCREEN BILAT W OR WO CAD Routine 01/22/2023 6:31 PM CDT COLON CANCER SCREEN, STOOL DNA Routine 05/04/2022 3:30 PM HITCHER Screening for colon cancer CERV/VAG CYTOPATH, SUREPATH Routine 08/07/2017 from Last 3 Months or Most Recently Relevant to Health Maintenance Results * CBC WITH DIFFERENTIAL (09/27/2024 3:59 PM CDT) Blood us Abstract Provider HEMATOLOGY ORDERABLES Edited R esult - Final [facility] INTERNAL MED [facility] CLIA# [id number] [address] [facility] [address] [place] [phone] * HM DIABETES EYE EXAM (04/15/2024 10:03 AM HITCHER) Result [facility] Hector Lopez MD HEALTH MAINTENANCE Final Resu lt Performing Organization Address [facility] Co de Phone Number [facility] CLIA# [id number] [address] [facility] [address] [place] [phone] * (ABNORMAL) LIPID PANEL (03/12/2024 2:05 PM HITCHER) CHOLESTEROL 206(A) 0 - 200 mg/dL EXTERNAL LAB TRIGLYCERIDES, DIRECT 175(A) 0 - 150 mg/dL EXTERNAL LAB HDL CHOLESTEROL 60 40 - 60 mg/dL EXTERNAL LAB LDL CHOLESTEROL 111 <130 mg/dL EXTERNAL LAB Blood 03/12/2024 2:05 PM HITCHER Hector Lopez MD CHEMISTRY ORDERABLES Edited R esult - Final Performing Organization Address [facility] Co de Phone Number EXTERNAL LAB * (ABNORMAL) HEMOGLOBIN A1C (03/12/2024 1:42 PM HITCHER) HEMOGLOBIN A1C 8.5(A) <5.7 % EXTERNAL LAB Blood 03/12/2024 1:42 PM HITCHER Result [facility] Hector Lopez MD CHEMISTRY ORDERABLES Final Re sult Performing Organization Address [facility] Co de Phone Number EXTERNAL LAB * MICROALBUMIN/CREATININE RATIO, RANDOM UR (03/14/2023 9:00 AM HITCHER) ABSTRACTED MICROALBUMIN,UR INE 9.7 [facility] ABSTRACTED CREATININE, URINE [facility] ABSTRACTED MICROALBUMIN/CR EATININE RATIO, URINE [facility] Urine URINE SPECIMEN OBTAINED BY CLEAN CATCH PROCEDURE / Unknown 03/14/2023 9:00 AM HITCHER Result [facility] Hector Lopez MD URINE ORDERABLES Final Result [facility] CLIA# [id number] [address] [place] [address] * MAMMO SCREEN BILAT W OR WO CAD (01/22/2023 6:31 PM CDT) Anatomical Region Laterality Modality Breast Bilateral Mammography Abstract Provider MAMMO ORDERABLES Edited Result - Final * COLON CANCER SCREEN, STOOL DNA (05/04/2022 3:30 PM HITCHER) COLOGUARD RESULT Negative Negative [facility] Comment: NEGATIVE TEST RESULT. A negative [...] Jones et al, N Engl J Med 2014;370(14):0005-4510) The normal value (reference range) for this assay is negative. COLOGUARD RE-SCREENING RECOMMENDATION: Periodic colorectal cancer screening is an important part of preventive healthcare for asymptomatic individuals at average risk for colorectal cancer. Following a negative Cologuard result, the [place] [employer] Society and U.S. Multi-Society Task Force screening guidelines recommend a Cologuard re-screening interval of 3 years. References: [place] [employer] Guideline for Colorectal Cancer Screening: https://www.cancer.org/cancer/egyox-iunlbi-gfqsmk/gelochwzn-grkmsfkug-shuobze/ac s-rec ommendations.html.; Brandon SCHNEIDER, Riley CR, Luca DAVIS, Colorectal Cancer Screening: Recommendations for Physicians and Patients from the U.S. Multi-Society Task Force on Colorectal Cancer Screening , Am J Gastroenterology 2017; 112:7579-4904. TEST DESCRIPTION: Composite algorithmic analysis of stool [...] (Memo Oliver al, N Engl J Med 2014;370(14):0769-0045.) Cologuard may produce a false negative or false positive result (no colorectal cancer or precancerous polyp present at colonoscopy follow up). A negative Cologuard test result does not guarantee the absence of CRC or advanced adenoma (pre-cancer). The current Cologuard screening interval is every 3 years. ([place] Cancer Society and U.S. Multi-Society Task Force). Cologuard performance data in a 10,000 patient pivotal study using colonoscopy as the reference method can be accessed at the following location: www.[employer]/results. Additional description of the Cologuard test process, warnings and precautions can be found at www.[employer]. Stool STOOL SPECIMEN / Unknown 05/04/2022 3:30 PM HITCHER 05/07/2022 8:02 PM HITCHER us Hector Lopez MD BODY FLUIDS AND STOOLS Final Result [facility] CLIA # [id number] [address] , [address] [place] [address] * CERV/VAG CYTOPATH, SUREPATH (08/07/2017) Genital SWAB OF ENDOCERVIX / Unknown us Abstract Provider PATHOLOGY/CYTOLOGY ORDERABLES Final Result [facility] INTERNAL MEDICINE [id number] [address] [place] [address] from Last 3 Months or Most Recently Relevant to Health Maintenance Insurance RX [employer] RX Member Subscriber Plan / Payer (Ef fective 2021-Present) Name:Cathi Winters Relation to Subscriber:Not on file Name:Cathi Winters Subscriber ID:Not on file Date of :1965 (Work) Payer ID:Not on file Type:RX Commercial Address: [address] Care Teams Equipment Worker Relationship Specialty Start Date End Date Hector Lopez MD PCP - General Internal Medicine 07/03/16
--- OUTSIDE RECORDS SUMMARY | 2024-10-15 10:03 | XMS_ITS | Clinical Summary ---
Author Organization [facility] Address [address] [facility] [place] [address] Care Team Providers Care Slip Operator Name Role Phone Unavailable Primary Care Provider Unavailabl e Source Comments [facility],non-owned Affiliates and Associated Physician Practices is amultiple site organization consisting of ambulatory clinics and hospital sitesin [place], [place], [place] and [place]. This disclosure is being madepursuant to the Care Everywhere program and may not contain all information available regarding this patient. Last updated 17.[facility] Social History Tobacco Use Types Packs/Day Years Used Date Smoking Tobacco: Never Assessed Comments Unknown Sex and Gender Information Value Date Recorded Sex Assigned at Not on file Legal Sex Female 6:19 AM MANUFACTURING TEACHER Gender Identity Not on file Sexual Orientation [...] season) 2023 DEPRESSION SCREENING 03/31/2024 INFLUENZA VACCINE (#1) 2024 HIB VACCINE Aged Out No longer [...] patient's age to complete this topic Insurance [facility]
--- OUTSIDE RECORDS SUMMARY | 2024-10-15 10:03 | XMS_ITS | Encounter Summary ---
Author Organization [email or web address] [facility] Address [address] [place] [address] Care Team Providers Care Oil Refiner Name Role Phone Hector Lopez MD Primary Care Provider [phone] Encounter Details Date Type Department Care Team (Late st Contact Info) Description 10/13/2024 External Device Data STL ABSTRACTION Provider, Abstract NO ADDRESS ON FILE Social History Tobacco Use Types Packs/Day Years Used Date Smoking Tobacco: Former Cigarettes 1 6 Passive Smoke Exposure: Past Smokeless Tobacco: Never Alcohol Use Standard Drinks/Week Comments Yes 0 (1 standard drink = 0.6 oz pur e alcohol) social Comments No Sex and Gender Information Value Date Recorded Sex Assigned at Not on file Legal Sex Female 5:17 PM CDT Gender Identity Not on file Sexual Orientation Not on file documented as of this encounter Plan of Treatment Upcoming Encounters Date Type Department Care Team (Latest Contact Info) Description 11/09/2024 7:40 AM CDT Hospital Encounter [facility] [place] [address] [place] [address] Ricardo Nix MD [address] [place] [address] Other iron deficiency anemia 11/09/2024 7:40 AM CDT - 11/09/2024 8:20 AM CDT Surgery [facility] [place] [address] [place] [address] Ricardo Nix MD [address] [place] [address] ESOPHAGOGASTRODUODENOSCOPY 02/10/2025 10:00 AM BODY SHOP MANAGER Office Visit [facility] [address] [facility] [address] [place] [phone] Hector Lopez MD [address] [facility] [address] [place] [address] Scheduled Procedures Name Priority Associated Diagnoses Date/Ti me ESOPHAGOGASTRODUODENOSCOPY Other iron deficiency anemia Screening for colon cancer 11/09/2024 7:40 AM CDT COLONOSCOPY Other iron deficiency anemia Screening for colon cancer 11/09/2024 7:40 AM CDT documented as of this encounter Visit Diagnoses Not on filedocumented in this encounter Care Teams Oil Refiner Relationship Specialty Start Date End Date Hector Lopez MD PCP - General Internal Medicine 07/03/16 documented as of this encounter
[2024-10-15] MEDS: CYANOCOBALAMIN INJ 1,000 MCG/ML VIAL 1000 MCG IM (11:08)
[2024-10-15 11:09] VITALS: BP 120/72; PULSE 68; RESP 16; TEMP 36.5; O2SAT 97; BMI 33.0
== END 2024-10-15 09:56 | disposition home or self-care (01) ==
PROVIDERS: PCP Internal Medicine; Visit Provider Internal Medicine
DX: E53.8 Deficiency of other specified B group vitamins (principal)
CPT/HCPCS: 96372; J3420

== ENCOUNTER 2024-11-17 10:56 | Outpatient (CLI) | payer OTHER, SELFPAY ==
[2024-11-17 11:32] VITALS: BP 116/70; PULSE 79; RESP 14; TEMP 36.4; O2SAT 98; BMI 33.0
--- OUTSIDE RECORDS SUMMARY | 2024-11-17 11:32 | XMS_ITS | Encounter Summary ---
Author Organization [facility] Address [address] [place] [address] Care Team Providers Care Recycling Program Manager Name Role Phone Hector Lopez MD Primary Care Provider [phone] Encounter Details Date Type Department Care Team (Late st Contact Info) Description 11/04/2024 Results Follow-Up [facility] [place] [address] [place] [address] Ricardo Nix MD [address] [place] [address] CBC WITH DIFFERENTIAL, IRON, TIBC, AND PERCENT SATURATION, FERRITIN Social History Tobacco Use Types Packs/Day Years [...] Encounters Date Type Department Care Team (Late Contact Info) Description 02/10/2025 10:00 AM CLINICAL RESEARCH NURSE COORDINATOR Office Visit [facility] [address] [place] [address] Hector Lopez MD [address] [place] [address] [address] [place] [address] documented as of this encounter Visit Diagnoses Not on filedocumented in this encounter Care Teams Recycling Program Manager Relationship Specialty Start Date End Date Hector Lopez MD PCP - General Internal Medicine 07/03/16 documented as of this encounter
--- OUTSIDE RECORDS SUMMARY | 2024-11-17 11:32 | XMS_ITS | Encounter Summary ---
Author Organization [facility] Address [address] [place] [address] Care Team Providers Care Environmental Science Technician Name Role Phone Hector Lopez MD Primary Care Provider [phone] Reason for Referral * Eval and Treat (Routine) - Open Specialty Diagnoses / Procedures Referred By Contac t Referred To Contact Gastroenterology Diagnoses Iron deficiency anemia, unspecified iron deficiency anemia type COLON 2 DAY PREP Procedures NH OFFICE/OUTPATIENT ESTABLISHED MOD MDM 30 MIN NH OFFICE/OUTPATIENT NEW MODERATE MDM 45 MINUTES COLON 2 DAY PREP Ricardo Nix MD [address] [place] [address] Phone: tel: fax: Ricardo Nix MD [address] [place] [address] Phone: tel: fax: Referral ID Status Reason Start Date Expiration Date Visits Requested Visits Authorized [id number] Open Performing Department to Schedule 11/09/2024 11/10/2025 1 1 Encounter Details Date Type Department Care Team (Latest Contact Info) Description 11/09/2024 Results Follow-Up [facility] [address] [place] [address] Ricardo Nix MD [address] [place] [address] COLONOSCOPY REPORT, PATHOLOGY Social History Tobacco Use Types Packs/Day Years [...] st Contact Info) Description 02/10/2025 10:00 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 Office Visit [facility] [address] [phone] Hector Lopez MD [address] [place] [address] [address] Scheduled Referrals Name Type Priority Associated Diagnoses Order Schedule AMB REFERRAL TO GASTROENTEROLOGY Outpatient Referral Routine Iron deficiency anemia, unspecified iron deficiency anemia type Ordered: 11/09/2024 documented as of this encounter Visit Diagnoses Diagnosis Iron deficiency anemia, unspecified iron deficiency anemia type- Primary documented in this encounter Care Teams Environmental Science Technician Relationship Specialty Start Date End Date Hector Lopez MD PCP - General Internal Medicine 07/03/16 documented as of this encounter
--- OUTSIDE RECORDS SUMMARY | 2024-11-17 11:32 | XMS_ITS | Clinical Summary ---
Author Organization [facility] Address [address] [place] [address] Care Team Providers Care Spinner Iron Name Role Phone Unavailable Primary Care Provider Unavailabl e Source Comments [facility],non-owned Affiliates and Associated Physician Practices is amultiple site organization consisting of ambulatory clinics and hospital sitesin [place], [place], [place] and [place]. This disclosure is being madepursuant to the Care Everywhere program and may not contain all information available regarding this patient. 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
--- OUTSIDE RECORDS SUMMARY | 2024-11-17 11:32 | XMS_ITS | Clinical Summary ---
Author Organization [facility] Address [address] [place] [address] Care Team Providers Care Traffic Survey Technician Name Role Phone Hector Lopez MD Primary Care Provider Allergies Active Allergy Reactions Criticality Noted Date Comments Exenatide Nausea and Vomiting Low 12/03/2018 Liraglutide Nausea and Vomiting Low 12/03/2018 Medications multivitamin (DAILY-PATTY) tablet Take 1 Tablet by mouth daily. Active furosemide (LASIX) 20 mg tablet Take 1 Tablet (20 mg) by mouth daily. 90 Tablet 3 017 Active Syringe with Needle, Safety (3cc Safety Syringe 25Gx5/8) 3 mL 25 gauge x 5/8 Syringe To use with B12 injections monthly. 12 Syringe 017 Active lancets USE TID TO TEST BLOOD SUGAR. 100 Each 1 018 Active ONE TOUCH DELICA 33 gauge USE 3 TIMES DAILY TO TEST BLOOD SUGAR 300 Each 4 018 Active cholecalcifero l, Vitamin D3, (VITAMIN D3) 1,000 unit Capsule TAKE 1 CAPSULE BY MOUTH DAILY. 120 Capsule 3 018 Active triamcinolone acetonide (KENALOG) 0.1 % Cream 019 Active ONETOUCH ULTRA BLUE TEST STRIP Strip USE 3 TIMES DAILY TO TEST BLOOD SUGAR. 300 Strip 3 019 Active clobetasoL (TEMOVATE) 0.05 % Cream 020 Active Insulin [place], Disposable, (BD Ultra-Fine Short Pen Needle) 31 gauge x 5/16 Needle USE TO INJECT TOUJEO DAILY AFTER SUPPER AND TRULICITY EVERY 7 DAYS. 104 Each 6 023 Active diclofenac sodium (Voltaren) 1 % gel Apply 2 Grams to affected area 4 times daily. Right elbow 300 Gram 2 023 Active HYDROcodone-ac etaminophen (NORCO) 5-325 mg tabletIndicati ons:Left shoulder pain, unspecified chronicity Take 1 Tablet by mouth every 4 hours as needed for Pain, Moderate. Max Daily Amount: 6 Tablets 20 Tablet 023 Active cyanocobalamin (VITAMIN B-12) 1,000 mcg/mL Solution Inject 1 mL (1,000 mcg) by intramuscular injection every 30 days. Injection monthly 10 mL 6 023 Active cholecalcifero l 1,250 mcg (50,000 unit) Capsule TAKE 1 CAPSULE BY MOUTH EVERY 7 DAYS 13 Capsule 3 024 Active omeprazole (PriLOSEC) 20 mg Capsule, Delayed Release(E.C.) take 1 capsule by mouth daily 100 Capsule 3 024 Active insulin glargine U-300 conc (Toujeo Max U-300 SoloStar) 300 unit/mL (3 mL) Insulin PenIndications :Type 2 diabetes mellitus with peripheral neuropathy (CMS/HCC) INJECT SUBCUTANEOUSLY 100 UNITS DAILY AFTER SUPPER 30 mL 024 Active tirzepatide (Mounjaro) 10 mg/0.5 mL Pen Injector INJECT 10 MG SUBCUTANEOUSLY EVERY 7 DAYS 6 mL 3 025 Active gabapentin (NEURONTIN) 600 mg tablet TAKE 1 TABLET BY MOUTH 3 TIMES DAILY 270 Tablet 025 Active pravastatin (PRAVACHOL) 20 mg tablet Take 1 Tablet (20 mg) by mouth daily at bedtime. 100 Tablet 3 025 Active metoprolol succinate (TOPROL XL) 100 mg Extended Release 24 hour tablet Take 1 Tablet (100 mg) by mouth daily. 100 Tablet 025 Active estradioL (ESTRACE) 1 mg tablet Take 1 Tablet (1 mg) by mouth daily. 100 Tablet 3 025 Active metFORMIN (GLUCOPHAGE) 1,000 mg tabletIndicati ons:Type 2 diabetes mellitus with peripheral neuropathy (CMS/HCC) TAKE 1 TABLET BY MOUTH TWICE DAILY WITH MEALS 200 Tablet 3 025 Active DULoxetine (CYMBALTA) 30 mg Capsule, Delayed Release(E.C.) Take 1 Capsule (30 mg) by mouth daily. 100 Capsule 3 025 Active estradioL (ESTRACE) 1 mg tablet Take 1 Tablet (1 mg) by mouth daily. 90 Tablet 1 025 Active cyanocobalamin (VITAMIN B-12) 1,000 mcg/mL Solution Inject 1 mL (1,000 mcg) by intramuscular injection every 30 days. 10 mL 3 025 Active ferrous sulfate 325 mg (65 mg iron) tablet Take 1 Tablet (325 mg) by mouth daily. 90 Tablet 1 025 Active Jardiance 25 mg tablet TAKE ONE TABLET BY MOUTH ONCE DAILY IN THE COMMODITY LOAN CLERK 30 Tablet 11 025 Active Jardiance 25 mg tablet TAKE ONE TABLET BY MOUTH ONCE DAILY IN THE COMMODITY LOAN CLERK 30 Tablet 11 024 2024 Discontinued peg 3350-electroly paras (COLYTE) 240-22.72-6.72 -5.84 gram solution Take 4,000 mL by mouth one time only for 1 dose. Do NOT follow the implementation analyst label instructions- use the ones emailed/messaged to you from your physician. 4000 mL 025 2024 Discontinued Active Problems Patient Care Coordination No te [...] Encounters Date Type Department Care Team Description 5 7:00 AM CDT - 5 7:40 AM CDT Surgery [facility] GI Lab [address] [place] [address] Ricardo Nix MD ESOPHAGOGASTRODUODENOSCOPY 5 6:58 AM CDT Anesthesia Event [facility] GI Lab S [facility] [address] [facility] [place] [address] Wallace Hunter MD Davis, Cameron P, AA-C 5 6:06 AM CDT - 5 7:58 AM CDT Hospital Encounter [facility] S [address] [facility] [place] [address] Ricardo Nix MD Other iron deficiency anemia Discharge Disposition: Home or Self Care 5 Results Follow-Up [facility] Gastroenterology [address] [facility] [address] [place] [address] Ricardo Nix MD COLONOSCOPY REPORT, PATHOLOGY 5 Results Follow-Up [facility] SURGERY [place] [address] [facility] [address] [place] [address] Ricardo Nix MD CBC WITH DIFFERENTIAL, IRON, TIBC, AND PERCENT SATURATION, FERRITIN 5 External Device Data STL ABSTRACTION Provider, Abstract 5 External Device Data STL ABSTRACTION Provider, Abstract 5 Refill [facility] Internal Medicine [address] [address] Hector Lopez MD 5 Orders Only [facility] Gastroenterology [address] [facility] [address] [address] [place] [address] Ricardo Nix MD Iron deficiency anemia, unspecified iron deficiency anemia type (Primary Dx) 5 External Device Data STL ABSTRACTION Provider, Abstract 5 External Device Data STL ABSTRACTION Provider, Abstract 5 Orders Only [facility] Primary Care [facility] [address] [facility] [address] [place] [id number] Provider, Abstract 5 11:40 AM CDT Office Visit [facility] [address] [place] [address] Hector Lopez MD Microcytic anemia (Primary Dx); Type 2 diabetes mellitus with peripheral neuropathy (CMS/HCC); Encounter for routine adult health examination with abnormal findings; Other hyperlipidemia; Vitamin B12 deficiency (non anemic); Essential hypertension; Recurrent major depressive disorder, remission status unspecified 5 External Device Data STL ABSTRACTION Provider, Abstract 5 External Device Data STL ABSTRACTION Provider, Abstract 5 Orders Only [facility] [address] [place] [address] Hector Lopez MD Type 2 diabetes mellitus with peripheral neuropathy (CMS/HCC) 5 External Device Data STL ABSTRACTION Provider, Abstract 5 External Device Data STL ABSTRACTION Provider, Abstract 5 External Device Data STL ABSTRACTION Provider, Abstract 5 External Device Data STL ABSTRACTION Provider, Abstract from Last 3 Months Immunizations Immunization Administration [...] PNEUM OCOCCAL CONJUGATE VACCINE 20-VALENT (PCV20), POLYSACCHARIDE [id number] CONJUGATE, ADJUVANT 0.5 ML (PF) IM 05/16/2022 [...] Sign Reading Time Taken Comments Blood Pressure 124/58 11/09/2024 7:40 AM CDT Pulse 73 11/09/2024 7:40 AM CDT Temperature 36.1 C (96.9 F) 11/09/2024 7:20 AM CDT Respiratory Rate 18 11/09/2024 7:40 AM CDT Oxygen Saturation 98% 11/09/2024 7:40 AM CDT Inhaled Oxygen Concentration - - Weight 88 kg (194 lb) 11/09/2024 6:40 AM CDT Height 162.6 cm (5' 4) 11/09/2024 6:40 AM CDT Body Mass Index 33.3 11/09/2024 6:40 AM CDT Plan of Treatment Upcoming Encounters Date Type Department Care Team (Late st Contact Info) Description 02/10/2025 10:00 AM FREIGHT CAR REPAIRER Office Visit [facility] [address] [place] [address] Hector Lopez MD [address] [place] [address] [address] [place] [address] Health Maintenance Due Date Last [...] Additional history exists BREAST CANCER SCREENING 01/23/2024 01/23/20 23, 10/05/2021, 01/19/2020, Additional history exists DIABETES MICROALBUMIN [...] 3 years 05/04/2025 05/04/2022, 03/15/2018 COLORECTAL SCREENING 11/09/2034 11/09/2024, 11/09/2024, 03/15/2018 Colorectal Cancer Screening 11/09/2034 ZOSTER VACCINE Completed 02/01/2019, 12/03/2018 Procedures Procedure Name Priority Date/Time Associated Diagnosis Comments POC GLUCOSE Routine 11/09/2024 7:21 AM CDT COLONOSCOPY REPORT 11/09/2024 7:18 AM CDT PATHOLOGY Pathology 11/09/2024 7:18 AM CDT Other iron deficiency anemia Screening for colon cancer UPPER ENDOSCOPY REPORT 7:17 AM CDT MS COLONOSCOPY FLX DX W/MICA J SPEC WHEN PFRMD 11/09/2024 7:00 AM CDT Other iron deficiency anemia Screening for colon cancer MS ESOPHAGOGASTRODUODENOSCOP Y TRANSORAL DIAGNOSTIC 11/09/2024 7:00 AM CDT Other iron deficiency anemia Screening for colon cancer POC GLUCOSE Routine 11/09/2024 6:49 AM CDT FERRITIN Routine 11/03/2024 1:45 PM CDT Iron deficiency anemia, unspecified iron deficiency anemia type IRON, TIBC, AND PERCENT SATURATION Routine 11/03/2024 1:45 PM CDT Iron deficiency anemia, unspecified iron deficiency anemia type CBC WITH DIFFERENTIAL Routine 11/03/2024 1:45 PM CDT Iron deficiency anemia, unspecified iron deficiency anemia type CBC WITH DIFFERENTIAL Routine 09/27/2024 3:59 PM CDT HM DIABETES EYE EXAM Routine 04/15/2024 10:03 AM FREIGHT CAR REPAIRER LIPID PANEL Routine 03/12/2024 2:05 PM FREIGHT CAR REPAIRER Other hyperlipidemia HEMOGLOBIN A1C Routine 03/12/2024 1:42 PM FREIGHT CAR REPAIRER Type 2 diabetes mellitus with peripheral neuropathy (CMS/HCC) MICROALBUMIN/CREATININE RATI O, RANDOM UR Routine 03/14/2023 9:00 AM FREIGHT CAR REPAIRER MAMMO SCREEN BILAT W OR WO CAD Routine 1 6:31 PM CDT COLON CANCER SCREEN, STOOL DNA Routine 0 05/04/2022 3:30 PM FREIGHT CAR REPAIRER Screening for colon cancer CERV/VAG CYTOPATH, SUREPATH Routine 08/07/2017 from Last 3 Months or Most Recently Relevant to Health Maintenance Results * (ABNORMAL) POC GLUCOSE (11/09/2024 7:21 AM CDT) Only the most recent of2 resultswithin the time period is included. GLUCOSE POC 149(H) 74 - 99 mg/dL 11/09/2024 7:21 AM CDT [facility] SPECIMEN SOURCE, GLUCOSE POC Whole Blood 11/09/2024 7:21 AM CDT [facility] Blood, whole 11/09/2024 7:21 AM CDT 11/09/2024 7:29 AM CDT Ricardo Nix MD POINT OF CARE TESTING Final Result [facility] CLIA# [id number] [address] [place] [address] * COLONOSCOPY REPORT (11/09/2024 7:18 AM CDT) Narrative Procedure Note Ricardo Nix MD - 11/09/2024 7:18 AM CDT [facility] Endoscopy Patient Name: Cathi Winters Procedure Date: 11/09/2024 Date of : 1965 Attending MD: Ricardo Nix MD, Procedure: Colonoscopy Indications: Unexplained iron deficiency anemia Patient Profile: 59y/oF here for BRENDA. No overt bleeding. Cologuard (-) 2 years ago. Providers: Ricardo Nix MD Referring MD: Hector Lopez MD Medicines: Monitored Anesthesia Care Complications: No immediate complications. Procedure: Informed consent was obtained for the procedure, including moderate sedation after risks were discussed. Based on the pre-procedure assessment, including review of the patient's medical history, medications, allergies, and review of systems, the patient was deemed to be an appropriate candidate for sedation. A timeout was performed. Continuous ECG monitoring, pulse oximetry, blood pressure monitoring, and direct observation were performed. The was introduced through the anus with the intention of advancing to the cecum. The scope was advanced to the rectum before the procedure was aborted. Medications were given. The colonoscopy was performed without difficulty. The patient tolerated the procedure well. The quality of the bowel preparation was poor. Estimated Blood Loss: Estimated blood loss: none. Findings: Skin tags were found on perianal exam. A large amount of solid stool was found in the rectum, precluding visualization. The exam was otherwise without abnormality. Impression: - Preparation of the colon was poor. - Perianal skin tags found on perianal exam. - Stool in the rectum. - The examination was otherwise normal. - No specimens collected. Recommendation: - Patient has a contact number available for emergencies. The signs and symptoms of potential delayed complications were discussed with the patient. Return to normal activities tomorrow. Written discharge instructions were provided to the patient. - Discharge patient to home (ambulatory). - Resume previous diet. - Continue present medications. - Repeat colonoscopy at the next available appointment because the bowel preparation was poor. Ricardo Nix MD 11/09/2024 7:18:33 AM This report has been signed electronically. Number of Addenda: [address]; [place] [address] Ricardo Nix MD GI PROCEDURE ORDERABLES Snow l Result * PATHOLOGY (11/09/2024 7:18 AM CDT) CASE REPORT Surgical Pathology R eport Case: [id number] Authorizing Provider: Ricardo Nix MD Collected: 11/09/2024 07:18 AM Ordering Location: [facility] GI Lab [address] Received: 11/09/2024 09:49 AM Pathologist: Sanjeev Ogden MD Specimens: A) - Duodenum, bxs B) - Stomach, bxs 2:56 PM CDT [facility] FINAL DIAGNOSIS A. Duodenum, biopsy: - Small intestinal mucosa with mild chronic inflammation, nonspecific. - No evidence of celiac disease. B. Stomach, biopsy: - Antral and corpus mucosa with mild chronic gastritis. - No intestinal metaplasia or dysplasia. - Negative for Helicobacter pylori. 2:56 PM CDT [facility] at 1455 CDT GROSS DESCRIPTION The specimens are received in two containers each labeled Cathi A Vianey. Received in the first container additionally labeled duodenum biopsies are 3 pieces of pink-musa tissue ranging from 0.2 to 0.3 cm in greatest dimension. All are submitted in cassette A1. Received in the second container additionally labeled stomach biopsies are 2 pieces of pink-musa tissue measuring 0.4 and 0.6 cm in greatest dimension. All are submitted in cassette B1. EL 5 2:56 PM [facility] MICROSCOPIC DESCRIPTION The slides are labeled [id number] and Cathi Winters. Sections of the duodenum biopsy (A) show small intestinal mucosa with mild nonspecific chronic inflammation. No intraepithelial lymphocytosis or villous blunting is identified. Sections of the gastric biopsy (B) show antral and corpus mucosa with mildly increased lymphoplasmacytic infiltrate in the lamina propria. No acute inflammation is present. No Helicobacter pylori organisms are identified in IHC-stained slide. No intestinal metaplasia or dysplasia is identified. 5 2:56 PM T [facility] OPERATIVE PROCEDURE 1: ESOPHAGOGASTRODUODENOSCOP Y 2: COLONOSCOPY 5 2:56 PM [facility] CLINICAL INFORMATION A Small bowel Bx's. Rule out sprue (chronic diarrhea and/or Iron deficiency anemia. Small bowel Bx's. Rule out sprue (chronic diarrhea and/or Iron deficiency anemia. Other iron deficiency anemia [D50.8] Screening for colon cancer [Z12.11] D50.8-Other iron deficiency anemia Z12.11-Screening for colon cancer 5 2:56 PM T [facility] COMMENT Special stain, immunohistochemical, and/or in situ hybridization results are interpreted with controls that demonstrate appropriate staining reactions. Note on use of immunohistochemistry reagents and in situ hybridization probes: These tests were developed and their performance characteristics determined by [facility], Department of Laboratory Medicine. It has not been cleared or approved by the U.S. Food and Drug Administration. The FDA has determined that such clearance or approval is not necessary. The test is used for clinical purposes. It should not be regarded as investigational or for research. This laboratory is certified to perform high complexity testing. Frozen section/operating room consultation, gross examination and dissection, and case sign out may have been performed in part or completely in the following laboratories: [facility], CLIA #[id number] [address] [place] [address] [facility], CLIA #[id number] [address] [place] [address] [facility], CLIA #[id number] [address] [place] [address] This report was created with the 9+ voice-activated dictation system. Inherent to this system is the possibility of syntax, grammar, punctuation and other errors that could impact the interpretation of the report. If there are interpretative questions about aspects of this report, please contact the performing pathologist. 2:56 PM CDT [facility] Tissue ENTIRE STOMACH / Unknown Collection / Unknown 11/09/2024 7:18 AM CDT 11/09/2024 9:49 AM CDT Comment:Small bowel Bx's. Ru le out sprue (chronic diarrhea and/or Iron deficiency anemia. Tissue specimen (specimen) ENTIRE STOMACH / Unknown 11/09/2024 7:18 AM CDT 11/09/2024 9:49 AM CDT Comment:Gastritis, r/o h.pyl drea Ricardo Nix MD PATHOLOGY/CYTOLOGY ORDERABLE S Final Result [id number] [address] [facility] [place] [address] * UPPER ENDOSCOPY REPORT (11/09/2024 7:17 AM CDT) Narrative Procedure Note Ricardo Nix MD - 11/09/2024 7:17 AM CDT [facility] Endoscopy Patient Name: Cathi Winters Procedure Date: 11/09/2024 Date of : 1965 Attending MD: Ricardo Nix MD, Procedure: Upper GI endoscopy Indications: Unexplained iron deficiency anemia Patient Profile: 59y/oF here for BRENDA. No overt bleeding. Providers: Ricardo Nix MD Referring MD: Hector Lopez MD Medicines: Monitored Anesthesia Care Complications: No immediate complications. Procedure: Informed consent was obtained for the procedure, including moderate sedation after risks were discussed. Based on the pre-procedure assessment, including review of the patient's medical history, medications, allergies, and review of systems, the patient was deemed to be an appropriate candidate for sedation. A timeout was performed. Continuous ECG monitoring, pulse oximetry, blood pressure monitoring, and direct observation were performed. The Endoscope was introduced through the mouth, and advanced to the second part of duodenum. The upper GI endoscopy was accomplished without difficulty. The patient tolerated the procedure well. Estimated Blood Loss: Estimated blood loss: none. Findings: The examined esophagus was normal. Localized mild inflammation characterized by congestion (edema) and erythema was found in the gastric antrum. Biopsies were taken with a cold forceps for Helicobacter pylori testing. The cardia and gastric fundus were normal on retroflexion. The duodenal bulb and second portion of the duodenum were normal. Biopsies for histology were taken with a cold forceps for evaluation of celiac disease. The exam was otherwise without abnormality. Impression: - Normal esophagus. - Gastritis, characterized by congestion (edema) and erythema. Biopsied. - Normal duodenal bulb and second portion of the duodenum. Biopsied. - The examination was otherwise normal. Recommendation: - Patient has a contact number available for emergencies. The signs and symptoms of potential delayed complications were discussed with the patient. Return to normal activities tomorrow. Written discharge instructions were provided to the patient. - Discharge patient to home (ambulatory). - Resume previous diet. - Continue present medications. - Await pathology results. - Repeat upper endoscopy is not recommended. - Proceed to colonosccopy. Ricardo Nix MD 11/09/2024 7:16:53 AM This report has been signed electronically. Number of Addenda: [address]; [place] [address] Ricardo Nix MD GI PROCEDURE ORDERABLES Snow l Result * (ABNORMAL) IRON, TIBC, AND PERCENT SATURATION (11/03/2024 1:45 PM CDT) IRON 30(L) 45 - 160 mcg/dL [facility] TIBC 459(H) 250 - 450 mcg/dL (calc) [facility] IRON % SATURATION 7(L) 16 - 45 % (calc) [facility] Comment: Test Performed at: [facility] [address] [facility] [place] [address] Gene Phillips MD Blood 11/03/2024 1:45 PM CDT 11/03/2024 1:46 PM CDT us Ricardo Nix MD CHEMISTRY ORDERABLES Final R esult [facility] [phone] [facility] [address] [facility] [place] [address] * (ABNORMAL) CBC WITH DIFFERENTIAL (11/03/2024 1:45 PM CDT) Only the most recent of2 resultswithin the time period is included. WBC 7.9 3.8 - 10.8 Thousand/u L [facility] RBC 4.75 3.80 - 5.10 Million/uL [facility] HEMOGLOBIN 10.2(L) 11.7 - 15.5 g/dL [facility] HEMATOCRIT 36.6 35.0 - 45.0 % [facility] MCV 77.1(L) 80.0 - 100.0 fL [facility] MCH 21.5(L) 27.0 - 33.0 pg [facility] MCHC 27.9(L) 32.0 - 36.0 g/dL [facility] Comment: For adults, a slight decrease in the calculated MCHC value (in the range of 30 to 32 g/dL) is most likely not clinically significant; however, it should be interpreted with caution in correlation with other red cell parameters and the patient's clinical condition. RDW 17.0(H) 11.0 - 15.0 % [facility] PLATELETS 430(H) 140 - 400 Thousand/u L [facility] MPV 9.7 7.5 - 12.5 fL [facility] NEUTROPHIL ABSOLUTE 4,898 1,500 - 7,800 cells/uL [facility] LYMPHOCYTE ABSOLUTE 2,070 850 - 3,900 cells/uL [facility] MONOCYTE ABSOLUTE 553 200 - 950 cells/uL [facility] EOSINOPHIL ABSOLUTE 277 15 - 500 cells/uL [facility] BASOPHILS ABSOLUTE 103 0 - 200 cells/uL [facility] NEUTROPHIL 62 % [facility] LYMPHOCYTES 26.2 % [facility] MONOCYTE 7.0 % [facility] EOSINOPHILS 3.5 % [facility] BASOPHILS 1.3 % [facility] Comment: Test Performed at: [facility] [address] JossieRenetta Phillips MD Blood 11/03/2024 1:45 PM CDT 11/03/2024 1:46 PM CDT us Ricardo Nix MD HEMATOLOGY ORDERABLES Final Result Performing Organization Address [facility] Co de Phone Number [facility] [phone] [facility] [address] [address] * (ABNORMAL) FERRITIN (11/03/2024 1:45 PM CDT) FERRITIN 6(L) 16 - 232 ng/mL [facility] Comment: FASTING:NO FASTING: NO Test Performed at: [facility] [address] JossieRenetta Phillips MD Blood 11/03/2024 1:45 PM CDT 11/03/2024 1:46 PM CDT us Ricardo Nix MD CHEMISTRY ORDERABLES Final R esult Performing Organization Address [facility]/ZIP Co de Phone Number [facility] [phone] [facility] [address] [address] * HM DIABETES EYE EXAM (04/15/2024 10:03 AM FREIGHT CAR REPAIRER) us Hector Lopez MD HEALTH MAINTENANCE Final Resu lt Performing Organization Address City/[facility]/ZIP Co de Phone Number [facility] CLIA# [id number] [address] [place] [address] * (ABNORMAL) LIPID PANEL (03/12/2024 2:05 PM FREIGHT CAR REPAIRER) CHOLESTEROL 206(A) 0 - 200 mg/dL [facility] TRIGLYCERIDES, DIRECT 175(A) 0 - 150 mg/dL [facility] HDL CHOLESTEROL 60 40 - 60 mg/dL [facility] LDL CHOLESTEROL 111 <130 mg/dL [facility] Blood 03/12/2024 2:05 PM FREIGHT CAR REPAIRER Hector Lopez MD CHEMISTRY ORDERABLES Edited R esult - Final Performing Organization Address [facility] de Phone Number EXTERNAL LAB * (ABNORMAL) HEMOGLOBIN A1C (03/12/2024 1:42 PM FREIGHT CAR REPAIRER) Pathologist [facility] HEMOGLOBIN A1C 8.5(A) <5.7 % EXTERNAL LAB Blood 03/12/2024 1:42 PM FREIGHT CAR REPAIRER Hector Lopez MD CHEMISTRY ORDERABLES Final Re sult Performing Organization Address [facility] Co de Phone Number EXTERNAL LAB * MICROALBUMIN/CREATININE RATIO, RANDOM UR (03/14/2023 9:00 AM FREIGHT CAR REPAIRER) Pathologist [facility] ABSTRACTED MICROALBUMIN,UR INE 9.7 [facility] ABSTRACTED CREATININE, URINE [facility] ABSTRACTED MICROALBUMIN/CR EATININE RATIO, URINE [facility] Urine URINE SPECIMEN OBTAINED BY CLEAN CATCH PROCEDURE / Unknown 03/14/2023 9:00 AM FREIGHT CAR REPAIRER Hector Lopez MD URINE ORDERABLES Final Result Performing Organization Address [facility] Co de Phone Number [facility] CLIA# [id number] [address] [place] [address] * MAMMO SCREEN BILAT W OR WO CAD (01/22/2023 6:31 PM CDT) Anatomical Region Laterality Modality Breast Bilateral Mammography us Abstract Provider MAMMO ORDERABLES Edited Result - Final * COLON CANCER SCREEN, STOOL DNA (05/04/2022 3:30 PM FREIGHT CAR REPAIRER) COLOGUARD RESULT Negative Negative [facility] Comment: NEGATIVE TEST RESULT. A negative Cologuard [...] Jones et al, N Engl J Med 2014;370(14):5793-2014) The normal value (reference range) for this assay is negative. COLOGUARD RE-SCREENING RECOMMENDATION: Periodic colorectal cancer screening is an important part of preventive healthcare for asymptomatic individuals at average risk for colorectal cancer. Following a negative Cologuard result, the [employer] and U.S. Multi-Society Task Force screening guidelines recommend a Cologuard re-screening interval of 3 years. References: [place] Guideline for Colorectal Cancer Screening: https://www.cancer.org/cancer/bczya-gljgel-gatrdt/inlhwnezp-mwqcofeyn-yvkzbnn/ac s-rec ommendations.html.; Brandon DK, Riley CR, Luca AdamsK, Colorectal Cancer Screening: Recommendations for Physicians and Patients from the U.S. Multi-Society Task Force on Colorectal Cancer Screening , Am J Gastroenterology 2017; 112:5195-2437. TEST DESCRIPTION: Composite algorithmic analysis of stool [...] (Memo Oliver al, N Engl J Med 2014;370(14):4933-2460.) Cologuard may produce a false negative or false positive result (no colorectal cancer or precancerous polyp present at colonoscopy follow up). A negative Cologuard test result does not guarantee the absence of CRC or advanced adenoma (pre-cancer). The current Cologuard screening interval is every 3 years. ([place] [employer] and U.S. Multi-Society Task Force). Cologuard performance data in a 10,000 patient pivotal study using colonoscopy as the reference method can be accessed at the following location: www.[employer]/results. Additional description of the Cologuard test process, warnings and precautions can be found at www.[employer].com. Stool STOOL SPECIMEN / Unknown 05/04/2022 3:30 PM FREIGHT CAR REPAIRER 05/07/2022 8:02 PM FREIGHT CAR REPAIRER us Hector Lopez MD BODY FLUIDS AND STOOLS Final Result [facility] CLIA # [id number] [address] , [address] [place] [address] * CERV/VAG CYTOPATH, SUREPATH (08/07/2017) Genital SWAB OF ENDOCERVIX / Unknown us Abstract Provider PATHOLOGY/CYTOLOGY ORDERABLES Final Result Performing Organization Address City/State/[facility] Co de Phone Number [facility] INTERNAL MEDICINE [id number] [address] [place] [phone] from Last 3 Months or Most Recently Relevant to Health Maintenance Insurance [employer] [id number] RX [employer] Member Subscriber Plan / Payer (Ef fective 2021-Present) Name:Cathi Winters Relation to Subscriber:Not on file Name:Cathi Winters Subscriber ID:Not on file Date of :1965 (Work) Payer ID:Not on file Type:RX Commercial Address: [place] Advance Directives For more information, please contact: [phone] * Full Code (Latest Code Status on File) Date Activated Date Inactivated Comments 11/09/2024 6:39 AM 11/09/2024 10:03 AM Care Teams Traffic Survey Technician Relationship Specialty Start Date End Date Hector Lopez MD PCP - General Internal Medicine 07/03/16
[2024-11-17] MEDS: CYANOCOBALAMIN INJ 1,000 MCG/ML VIAL 1000 MCG IM (11:40)
== END 2024-11-17 10:57 | disposition home or self-care (01) ==
PROVIDERS: PCP Internal Medicine; Visit Provider Internal Medicine
DX: E53.8 Deficiency of other specified B group vitamins (principal)
CPT/HCPCS: 96372; J3420

== ENCOUNTER 2024-12-22 09:53 | Outpatient (CLI) | payer OTHER, SELFPAY ==
--- OUTSIDE RECORDS SUMMARY | 2024-12-22 10:45 | XMS_ITS | Encounter Summary ---
Author Organization [facility] Address [address] [place] [address] Care Team Providers Care Insurance Administrator Name Role Phone Hector Lopez MD Primary Care Provider Reason for Referral * Eval and Treat (Routine) - Open Specialty Diagnoses / Procedures Referred By Contac t Referred To Contact Gastroenterology Diagnoses Iron deficiency anemia, unspecified iron deficiency anemia type COLON 2 DAY PREP Procedures [place] OFFICE/OUTPATIENT ESTABLISHED MOD MDM 30 MIN [place] OFFICE/OUTPATIENT NEW MODERATE MDM 45 MINUTES COLON 2 DAY PREP Ricardo Nix MD [address] [place] [address] Phone: tel: fax: Ricardo Nix MD [address] [place] [address] Phone: tel: fax: Referral ID Status Reason Start Date Expiration Date Visits Requested Visits Authorized [id number] Open Performing Department to Schedule 11/09/2024 11/10/2025 1 1 Encounter Details Date Type Department Care Team (Latest Contact Info) Description 11/09/2024 Results Follow-Up [facility] Gastroenterology [address] [place] [address] Ricardo Nix MD [address] [place] [address] COLONOSCOPY REPORT, PATHOLOGY Social History Tobacco Use Types Packs/Day Years Used Date Smoking Tobacco: Former Cigarettes 1 6 Passive Smoke Exposure: Past Smokeless Tobacco: Never Alcohol Use Standard Drinks/Week Comments Yes 0 (1 standard drink = 0.6 oz pur e alcohol) social Feeling Safe Answer Date Recorded Are you in a relationship wi th someone who hurts you emotionally and/or physically? No 11/09/2024 Comments No Sex and Gender Information Value Date Recorded Sex Assigned at Not on file Legal Sex Female 5:17 PM CDT Gender Identity Not on file Sexual Orientation Not on file documented as of this encounter Plan of Treatment Upcoming Encounters Date Type Department Care Team (Late st Contact Info) Description 02/10/2025 10:00 AM COLLEGE TUTOR Office [place] [address] Hector Lopez MD [address] [place] [phone] Scheduled Referrals Name Type Priority Associated Diagnoses Order Schedule AMB REFERRAL TO GASTROENTEROLOGY Outpatient Referral Routine Iron deficiency anemia, unspecified iron deficiency anemia type Ordered: 11/09/2024 documented as of this encounter Visit Diagnoses Diagnosis Iron deficiency anemia, unspecified iron deficiency anemia type- Primary documented in this encounter Care Teams Insurance Administrator Relationship Specialty Start Date End Date Hector Lopez MD PCP - General Internal Medicine 07/03/16 documented as of this encounter
--- OUTSIDE RECORDS SUMMARY | 2024-12-22 10:45 | XMS_ITS | Clinical Summary ---
Author Organization [facility] Address [address] [place] [address] Care Team Providers Care Interlocking Machine Operator Name Role Phone Unavailable Primary Care Provider Unavailabl e Source Comments [facility],non-owned Affiliates and Associated Physician Practices is amultiple site organization consisting of ambulatory clinics and hospital sitesin [place], [place], [place] and [place]. This disclosure is being madepursuant to the Care Everywhere program and may not contain all information available regarding this patient. Last updated 17.[facility] Social History Tobacco Use Types Packs/Day Years Used Date Smoking Tobacco: Never Assessed Comments Unknown Sex and Gender Information Value Date Recorded Sex Assigned at Not on file Legal Sex Female 6:19 AM PROPOSAL REVIEW ANALYST Gender Identity Not on file Sexual Orientation [...] 02/17/2016 ZOSTER VACCINE (1 of 2) 02/17/2016 DEPRESSION SCREENING 03/31/2024 COVID-19 VACCINE (1 - 2023-2 5 season) 2024 INFLUENZA VACCINE (#1) 2024 HIB VACCINE Aged [...] patient's age to complete this topic Insurance [facility]
--- OUTSIDE RECORDS SUMMARY | 2024-12-22 10:45 | XMS_ITS | Clinical Summary ---
Author Organization [facility] Address [address] [place] [address] Care Team Providers Care News Internship Name Role Phone Hector Lopez MD Primary Care Provider [phone] Allergies Active Allergy Reactions Criticality Noted Date [...] 0.05 % Cream 05/06/19 20 Active Insulin Holliday, Disposable, (BD Ultra-Fine Short Pen Needle) 31 [...] daily 100 Capsule 3 09/10/19 24 Active insulin glargine U-300 conc (Toujeo Max U-300 SoloStar) 300 unit/mL (3 mL) Insulin PenIndications: Type 2 diabetes mellitus with peripheral neuropathy (CMS/HCC) INJECT SUBCUTANEOUSLY 100 UNITS DAILY AFTER SUPPER 30 mL 03/12/20 24 Active tirzepatide (Mounjaro) 10 mg/0.5 mL Pen Injector INJECT 10 MG SUBCUTANEOUSLY EVERY 7 DAYS 6 mL 3 05/03/19 25 Active gabapentin (NEURONTIN) 600 mg tablet TAKE 1 TABLET BY MOUTH 3 TIMES DAILY 270 Tablet 06/19/19 25 Active pravastatin (PRAVACHOL) 20 mg tablet Take 1 Tablet (20 mg) by mouth daily at bedtime. 100 Tablet 3 06/19/19 25 Active metoprolol succinate (TOPROL XL) [...] daily. 90 Tablet 1 10/05/19 25 Active Jardiance 25 mg tablet TAKE ONE TABLET BY MOUTH ONCE DAILY IN THE AIRPORT MAINTENANCE LABORER 30 Tablet 11 10/21/19 25 Active Active Problems Patient Care Coordination [...] CDT - 5 7:40 AM CDT Surgery [facility] [address] [place] [address] Ricardo Nix MD ESOPHAGOGASTRODUODENOSCOPY 5 6:58 AM CDT Anesthesia Event [facility] GI Lab S [facility] [address] [place] [address] Wallace Hunter MD Davis, Cameron P, AA-C 5 6:06 AM CDT - 5 7:58 AM CDT Hospital Encounter [facility] [address] [facility] [place] [address] Ricardo Nix MD Other iron deficiency anemia Discharge Disposition: Home or Self Care 5 Results Follow-Up [facility] Gastroenterology [address] [facility] [address] [place] [address] Ricardo Nix MD COLONOSCOPY REPORT, PATHOLOGY 5 Results Follow-Up [facility] [place] [address] [place] [address] Ricardo Nix MD CBC WITH DIFFERENTIAL, IRON, TIBC, AND PERCENT SATURATION, FERRITIN 5 External Device Data STL ABSTRACTION Provider, Abstract 5 External Device Data STL ABSTRACTION Provider, Abstract 5 Refill [facility] Internal Medicine [address] [address] Hector Lopez MD 5 Orders Only [facility] Gastroenterology [address] [facility] [address] [place] [address] Ricardo Nix MD Iron deficiency anemia, unspecified iron deficiency anemia type (Primary Dx) 5 External Device Data STL ABSTRACTION Provider, Abstract 5 External Device Data STL ABSTRACTION Provider, Abstract 5 Orders Only [address] [place] [address] Provider, Abstract 5 11:40 AM CDT Office Visit [facility] [address] [place] [address] [address] [place] [address] Hector Lopez MD Microcytic anemia (Primary Dx); Type 2 diabetes mellitus with peripheral neuropathy (CMS/HCC); Encounter for routine adult health examination with abnormal findings; Other hyperlipidemia; Vitamin B12 deficiency (non anemic); Essential hypertension; Recurrent major depressive disorder, remission status unspecified from Last 3 Months Immunizations Immunization Administration [...] PNEUM OCOCCAL CONJUGATE VACCINE 20-VALENT (PCV20), POLYSACCHARIDE LCT109 CONJUGATE, ADJUVANT 0.5 ML (PF) IM 05/16/2022 [...] st Contact Info) Description 02/10/2025 10:00 AM DIESEL MECHANIC HELPER Office Visit [facility] Primary Care [address] [place] [address] Hector Lopez MD [address] [place] [address] Health Maintenance Due Date Last Done Comments HEPATITIS B VACCINES (1 of 3 - 19+ 3-dose series) 1985 HPV/Cotest (21-29) 1987 HPV/Cotest (30-65) 02/17/1996 FIT/FOBT Q 1 year 2011 Flex Sig/CT Colonography Q 5 years 2011 CERVICAL CANCER SCREENING 12/01/2020 PAP SMEAR 12/01/2020 12/01/2017 (Prev iously completed), 08/07/2017 BREAST CANCER SCREENING 01/23/2024 01/23/20, 10/05/2021, 01/19/2020, Additional history exists DIABETES MICROALBUMIN ANNUAL SCREEN 03/14/2024 03/14/2023, 03/14/2023, 04/25/2022, Additional history exists Preventative Visit- Commercial 03/31/2024 1 05/27/2023, 04/25/2022, 08/21/2021, Additional history exists DIABETES: A1C (Auto Order) 06/10/202403/12, 03/14/2023, 04/25/2022, Additional history exists DIABETES HBA1C Q 6 MONTHS 09/10/20242023, 03/14/2023, 04/25/2022, Additional history exists INFLUENZA VACCINE (#1) 2024 , 01/08/2023, 12/29/2021, Additional history exists COVID-19 Vaccine (2024-2 6 season) 2024 01/25/2023, 01/25/2023, 12/21/2021, Additional history exists LDL CHOLESTEROL ANNUAL 03/12/2025 [...] cancer UPPER ENDOSCOPY REPORT 7:17 AM CDT AL COLONOSCOPY FLX DX W/MICA J SPEC WHEN PFRMD 11/09/2024 7:00 AM CDT Other iron deficiency anemia Screening for colon cancer AL ESOPHAGOGASTRODUODENOSCOP Y TRANSORAL DIAGNOSTIC 11/09/2024 7:00 AM [...] DIABETES EYE EXAM Routine 04/15/2024 10:03 AM DIESEL MECHANIC HELPER LIPID PANEL Routine 03/12/2024 2:05 PM DIESEL MECHANIC HELPER Other hyperlipidemia HEMOGLOBIN A1C Routine 03/12/2024 1:42 PM DIESEL MECHANIC HELPER Type 2 diabetes mellitus with peripheral neuropathy (CMS/HCC) MICROALBUMIN/CREATININE RATI O, RANDOM UR Routine 03/14/2023 9:00 AM DIESEL MECHANIC HELPER MAMMO SCREEN BILAT W OR WO CAD Routine 1 6:31 PM CDT COLON CANCER SCREEN, STOOL DNA Routine 0 05/04/2022 3:30 PM DIESEL MECHANIC HELPER Screening for colon cancer CERV/VAG CYTOPATH, SUREPATH Routine 08/07/2017 from Last 3 Months or Most Recently Relevant to Health Maintenance Results * (ABNORMAL) POC GLUCOSE (11/09/2024 7:21 AM CDT) Only the most recent of2 resultswithin the time period is included. GLUCOSE POC 149(H) 74 - 99 mg/dL 11/09/2024 7:21 AM CDT [facility] SPECIMEN SOURCE, GLUCOSE POC Whole Blood 11/09/2024 7:21 AM CDT [facility] Blood, whole 11/09/2024 7:21 AM CDT 11/09/2024 7:29 AM CDT Ricardo Nix MD POINT OF CARE TESTING Final Result [facility]# [id number] 5 [facility] [place] [address] * COLONOSCOPY REPORT (11/09/2024 7:18 AM CDT) Narrative Procedure Note Ricardo Nix MD - 11/09/2024 7:18 AM CDT [facility] Endoscopy Patient Name: Cathi Winters Procedure Date: [...] of Addenda: [address]; [place] [address] Ricardo Nix MD GI PROCEDURE ORDERABLES Snow l Result * PATHOLOGY (11/09/2024 7:18 AM CDT) CASE REPORT Surgical Pathology R eport Case: [id number] Authorizing Provider: Ricardo Nix MD Collected: 11/09/2024 07:18 AM Ordering Location: [facility] Received: 11/09/2024 09:49 AM Pathologist: Sanjeev Ogden MD Specimens: A) - Duodenum, bxs B) - Stomach, bxs 2:56 PM T [facility] FINAL DIAGNOSIS A. Duodenum, biopsy: - Small intestinal mucosa with mild chronic inflammation, nonspecific. - No evidence of celiac disease. B. Stomach, biopsy: - Antral and corpus mucosa with mild chronic gastritis. - No intestinal metaplasia or dysplasia. - Negative for Helicobacter pylori. 2:56 PM T [facility] [employer] [facility] at 1455 CDT GROSS DESCRIPTION The [...] dimension. All are submitted in cassette B1. [facility] 2:56 PM T [facility] [employer] [facility] MICROSCOPIC DESCRIPTION The slides are labeled [id number] and Cathi Winters. Sections of the duodenum [...] No intestinal metaplasia or dysplasia is identified. 2:56 PM T [facility] OPERATIVE PROCEDURE 1: ESOPHAGOGASTRODUODENOSCOP Y 2: COLONOSCOPY 2:56 PM T [facility] [employer] [facility] CLINICAL INFORMATION A Small bowel Bx's. Rule out sprue (chronic diarrhea and/or Iron deficiency anemia. Small bowel Bx's. Rule out sprue (chronic diarrhea and/or Iron deficiency anemia. Other iron deficiency anemia [D50.8] Screening for colon cancer [Z12.11] D50.8-Other iron deficiency anemia Z12.11-Screening for colon cancer 2:56 PM CDT [facility] COMMENT Special stain, immunohistochemical, and/or in situ hybridization results are interpreted with controls that demonstrate appropriate staining reactions. Note on use of immunohistochemistry reagents and in situ hybridization probes: These tests were developed and their performance characteristics determined by [facility], Department of Laboratory Medicine. It has not [...] part or completely in the following laboratories: [facility], CLIA #[id number] [address] [place] [address] [facility], CLIA #[id number] [address] [place] [address] [facility], CLIA #[id number] [address] [place] [address] This report was created with the real trends voice-activated dictation system. Inherent to this system is the possibility of syntax, grammar, punctuation and other errors that could impact the interpretation of the report. If there are interpretative questions about aspects of this report, please contact the performing pathologist. 2:56 PM CDT [facility] Tissue ENTIRE STOMACH / Unknown Collection / Unknown 11/09/2024 7:18 AM CDT 11/09/2024 9:49 AM CDT Comment:Small bowel Bx's. Ru le out sprue (chronic diarrhea and/or Iron deficiency anemia. Tissue specimen (specimen) ENTIRE STOMACH / Unknown 11/09/2024 7:18 AM CDT 11/09/2024 9:49 AM CDT Comment:Gastritis, r/o h.pyl drea Ricardo Nix MD PATHOLOGY/CYTOLOGY ORDERABLE S Final Result [facility]# [id number] [address] [place] [address] * UPPER ENDOSCOPY REPORT (11/09/2024 7:17 AM CDT) Narrative Procedure Note Ricardo Nix MD - 11/09/2024 7:17 AM CDT [facility] Endoscopy Patient Name: Cathi Winters Procedure Date: [...] Addenda: [address]; [place] [address] Ricardo Nix MD GI PROCEDURE ORDERABLES Snow l Result * (ABNORMAL) IRON, TIBC, AND PERCENT SATURATION (11/03/2024 1:45 PM CDT) IRON 30(L) 45 - 160 mcg/dL [facility] TIBC 459(H) 250 - 450 mcg/dL (calc) [facility] IRON % SATURATION 7(L) 16 - 45 % (calc) [facility] Comment: Test Performed at: [facility] [address] [place] [address] Gene Phillips MD Blood 11/03/2024 1:45 PM CDT 11/03/2024 1:46 PM CDT Ricardo Nix MD CHEMISTRY ORDERABLES Final R esult [facility] [phone] [facility] [address] [place] [address] * (ABNORMAL) CBC WITH DIFFERENTIAL (11/03/2024 1:45 [...] [facility] Comment: Test Performed at: [facility] [address] [place] [address] Gene Phillips MD Blood 11/03/2024 1:45 PM CDT 11/03/2024 1:46 PM CDT us Ricardo Nix MD HEMATOLOGY ORDERABLES Final Result [facility] [phone] [facility] [address] * (ABNORMAL) FERRITIN (11/03/2024 1:45 PM CDT) Pathologist [facility] FERRITIN 6(L) 16 - 232 ng/mL [facility] Comment: FASTING:NO FASTING: NO Test Performed at: [facility] [address] Gene Phillips MD Blood 11/03/2024 1:45 PM CDT 11/03/2024 1:46 PM CDT Ricardo Nix MD CHEMISTRY ORDERABLES Final R esult [facility] [phone] [address] * HM DIABETES EYE EXAM (04/15/2024 10:03 AM DIESEL MECHANIC HELPER) us Hector Lopez MD HEALTH MAINTENANCE Final Resu lt [facility]# [id number] [address] [address] * (ABNORMAL) LIPID PANEL (03/12/2024 2:05 PM DIESEL MECHANIC HELPER) Pathologist [facility] CHOLESTEROL 206(A) 0 - 200 mg/dL EXTERNAL LAB TRIGLYCERIDES, DIRECT 175(A) 0 - 150 mg/dL EX[facility] LAB HDL CHOLESTEROL 60 40 - 60 mg/dL [facility] LDL CHOLESTEROL 111 <130 mg/dL EXTER[facility] LAB Blood 03/12/2024 2:05 PM DIESEL MECHANIC HELPER us Hector Lopez MD CHEMISTRY ORDERABLES Edited R esult - Final EXTERNAL LAB * (ABNORMAL) HEMOGLOBIN A1C (03/12/2024 1:42 PM DIESEL MECHANIC HELPER) [facility] HEMOGLOBIN A1C 8.5(A) <5.7 % EXTERNAL LAB Blood 03/12/2024 1:42 PM DIESEL MECHANIC HELPER Hector Lopez MD CHEMISTRY ORDERABLES Final Re sult EXTERNAL LAB * MICROALBUMIN/CREATININE RATIO, RANDOM UR (03/14/2023 9:00 AM DIESEL MECHANIC HELPER) [facility] ABSTRACTED MICROALBUMIN,UR INE 9.7 [facility] ABSTRACTED CREATININE, URINE [facility] ABSTRACTED MICROALBUMIN/CR EATININE RATIO, URINE [facility] Urine URINE SPECIMEN OBTAINED BY CLEAN CATCH PROCEDURE / Unknown 03/14/2023 9:00 AM DIESEL MECHANIC HELPER Hector Lopez MD URINE ORDERABLES Final Result Performing Organization Address City/[facility] Co de Phone Number [facility] CLIA# [id number] [address] [place] [address] * MAMMO SCREEN BILAT W OR WO CAD (01/22/2023 6:31 PM CDT) Anatomical Region Laterality Modality Breast Bilateral Mammography Abstract Provider MAMMO ORDERABLES Edited Result - Final * COLON CANCER SCREEN, STOOL DNA (05/04/2022 3:30 PM DIESEL MECHANIC HELPER) [facility] COLOGUARD RESULT Negative Negative [facility] Comment: NEGATIVE TEST RESULT. A negative [...] (Memo Oliver al, N Engl J Med 2014;370(14):4261-2032) The normal value (reference range) for this assay is negative. COLOGUARD RE-SCREENING RECOMMENDATION: Periodic colorectal cancer screening is an important part of preventive healthcare for asymptomatic individuals at average risk for colorectal cancer. Following a negative Cologuard result, the [place] [employer] Society and U.S. Multi-Society Task Force screening guidelines recommend a Cologuard re-screening interval of 3 years. References: [place] [employer] Guideline for Colorectal Cancer Screening: https://www.cancer.org/cancer/ggypm-rcrsnd-pqzfmi/youbryplr-bkrisnfxp-gcpxmsc/ac s-rec ommendations.html.; Brandon SCHNEIDER, Riley NEFF, Luca AdamsK, Colorectal Cancer Screening: Recommendations for Physicians and Patients from the U.S. Multi-Society Task Force on Colorectal Cancer Screening , Am J Gastroenterology 2017; 112:1797-7478. TEST DESCRIPTION: Composite algorithmic analysis of stool [...] screened with both Cologuard and colonoscopy. (Memo Garcia, N Engl J Med 2014;370(14):0828-6218.) Cologuard may produce a false negative or false positive result (no colorectal cancer or precancerous polyp present at colonoscopy follow up). A negative Cologuard test result does not guarantee the absence of CRC or advanced adenoma (pre-cancer). The current Cologuard screening interval is every 3 years. ([place] [employer] Society and U.S. Multi-Society Task Force). Cologuard performance data in a 10,000 patient pivotal study using colonoscopy as the reference method can be accessed at the following location: www.ISVS/results. Additional description of the Cologuard test process, warnings and precautions can be found at www.cologuard.com. Stool STOOL SPECIMEN / Unknown 05/04/2022 3:30 PM DIESEL MECHANIC HELPER 05/07/2022 8:02 PM DIESEL MECHANIC HELPER Hector Lopez MD BODY FLUIDS AND STOOLS Final Result Performing Organization Address [facility] Co de Phone Number [employer] CLIA # [id number] [address] [facility], [address] [place] [address] * CERV/VAG CYTOPATH, SUREPATH (08/07/2017) Genital SWAB OF ENDOCERVIX / Unknown us Abstract Provider PATHOLOGY/CYTOLOGY ORDERABLES Final Result Performing Organization Address City/State/[facility] Co de Phone Number [facility] [id number] [address] [place] [address] from Last 3 Months or Most Recently Relevant to [place] [address] RX [employer] Member Subscriber Plan / Payer (Ef fective 2021-Present) Name:VianeyJosiahpilo Healy Relation to Subscriber:Not on file Name:VianeyCathi Niraj Subscriber ID:Not on file Date of :1965 (Work) Payer ID:Not on file Type:RX Commercial Address: [address] Advance Directives For more information, please contact: [phone] * Full Code (Latest Code Status on File) Date Activated Date Inactivated Comments 11/09/2024 6:39 AM 11/09/2024 10:03 AM Care Teams News Internship Relationship Specialty Start Date End Date Hector Lopez MD PCP - General Internal Medicine 07/03/16
--- OUTSIDE RECORDS SUMMARY | 2024-12-22 10:45 | XMS_ITS | Encounter Summary ---
Author Organization [facility] Address [address] [place] [address] Care Team Providers Care Pharmacy Service Associate Name Role Phone Hector Lopez MD Primary Care Provider [phone] Encounter Details Date Type Department Care Team (Late st Contact Info) Description 11/04/2024 Results Follow-Up [facility] [place] [address] [place] [address] Ricardo Nix MD [address] [place] [address] CBC WITH DIFFERENTIAL, IRON, TIBC, [...] (Late Contact Info) Description 02/10/2025 10:00 AM STOCK ANALYST Office Visit [facility] Primary Care [address] [place] [address] Hector Lopez MD [address] [place] [address] [address] [place] [address] documented as of this encounter Visit Diagnoses Not on filedocumented in this encounter Care Teams Pharmacy Service Associate Relationship Specialty Start Date End Date Hector Lopez MD PCP - General Internal Medicine 07/03/16 documented as of this encounter
[2024-12-22 13:12] VITALS: BP 121/70; PULSE 68; RESP 14; TEMP 36.6; O2SAT 98; BMI 32.8
[2024-12-22] MEDS: CYANOCOBALAMIN INJ 1,000 MCG/ML VIAL 1000 MCG IM (13:12)
== END 2024-12-22 09:54 | disposition home or self-care (01) ==
PROVIDERS: PCP Internal Medicine; Visit Provider Internal Medicine
DX: E53.8 Deficiency of other specified B group vitamins (principal)
CPT/HCPCS: 96372; J3420

== ENCOUNTER 2025-01-26 14:01 | Outpatient (CLI) | payer OTHER, SELFPAY ==
[2025-01-26 14:10] VITALS: BP 121/70; PULSE 68; RESP 14; TEMP 36.4; O2SAT 98; BMI 32.8
[2025-01-26] MEDS: CYANOCOBALAMIN INJ 1,000 MCG/ML VIAL 1000 MCG IM (14:16)
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
--- OUTSIDE RECORDS SUMMARY | 2025-01-26 15:48 | XMS_ITS | Clinical Summary ---
Author Organization [facility] Address [address] [facility] [place] [address] Care Team Providers Care Brownell Operator Name Role Phone Unavailable Primary Care Provider Unavailabl e Source Comments [facility],non-owned Affiliates and Associated Physician Practices is amultiple site organization consisting of ambulatory clinics and hospital sitesin [place], [place], [place] and [place]. This disclosure is being madepursuant to the Care Everywhere program and may not contain all information available regarding this patient. 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
== END 2025-01-26 14:02 | disposition home or self-care (01) ==
PROVIDERS: PCP Internal Medicine; Visit Provider Internal Medicine
DX: E53.8 Deficiency of other specified B group vitamins (principal)
CPT/HCPCS: 96372; J3420

== ENCOUNTER 2025-02-04 10:46 | Outpatient (CLI) | payer OTHER, SELFPAY ==
[2025-02-04 10:55] LABS: Hematocrit 41.4 % (35.0-49.0); Hemoglobin 12.2 g/dL (12.0-15.0); Immature Granulocyte Percent A 0.6 % (0.0-0.0); Lymphocytes Absolute Auto 1.93 K/mm3 (1.10-4.50); Mean Corpuscular HGB Conc 29.5 g/dL (32-36); Mean Corpuscular Hemoglobin 24.3 pg (27.0-31.0); Mean Corpuscular Volume 82.3 fL (78.0-102.0); Nucleated Red Blood Cells Absolute Auto 0.00 K/mm3 (0.00-0.00); Nucleated Red Blood Cells Perc 0.0 % (0-0.0); Platelet Count Result 393 K/mm3 (150-420); Red Blood Count 5.03 M/mm3 (4.20-5.40); White Blood Count 7.9 K/mm3 (4.8-10.8)
[2025-02-04 11:13] LABS: Alanine Aminotransferase 18 U/L (6-35); Albumin Level 4.2 g/dL (3.5-5.1); Alkaline Phosphatase 74 U/L (38-126); Anion Gap 11 mmol/L (4-12); Aspartate Amino Transferase 23 U/L (14-36); Bilirubin,Total 1.4 mg/dL (0.2-1.3); Blood Urea Nitrogen 13 mg/dL (7-17); Calcium 9.3 mg/dL (8.4-10.2); Carbon Dioxide 27 mmol/L (22-30); Chloride 103 mmol/L (98-107); Cholesterol 194 mg/dL (0-200); Estimated Glomerular Filt Rate > 60; Glucose 226 mg/dL (65-110); HDL Direct 73 mg/dL; Osmolality Calculated 299 mOsm/kg (285-295); Potassium 4.5 mmol/L (3.4-5.0); Sodium 141 mmol/L (137-145); Total Protein 7.1 g/dL (6.3-8.2); Triglycerides 211 mg/dL (<150)
[2025-02-04 11:16] LABS: Hemoglobin A1C 9.4 % (<5.7)
--- OUTSIDE RECORDS SUMMARY | 2025-02-04 11:30 | XMS_ITS | Clinical Summary ---
Author Organization [facility] Address [address] [place] [address] Care Team Providers Care Design Engineer Agricultural Equipment Name Role Phone Hector Lopez MD Primary Care Provider [phone] Allergies Active Allergy Reactions Criticality Noted Date [...] 0.05 % Cream 05/06/19 20 Active Insulin Cody, Disposable, (BD Ultra-Fine Short Pen Needle) 31 [...] TABLET BY MOUTH ONCE DAILY IN THE AMBULATORY NURSE 30 Tablet 10/21/19 Active metFORMIN (GLUCOPHAGE) 1,000 mg tabletIndicatio ns:Type 2 diabetes mellitus with peripheral neuropathy (CMS/HCC) TAKE 1 TABLET BY MOUTH TWICE DAILY WITH MEALS 200 Tablet 12/23/19 Active DULoxetine (CYMBALTA) 30 mg Capsule, Delayed Release(E.C.) Take 1 Capsule (30 mg) by mouth daily. 100 Capsule 12/23/19 25 Active omeprazole (PriLOSEC) 20 mg Capsule, Delayed Release(E.C.) Take 1 Capsule (20 mg) by mouth daily. 100 Capsule 12/23/19 25 Active Active Problems Patient Care Coordination [...] Encounters Date Type Department Care Team Description 02/03/20 External Device Data STL ABSTRACTION Provider, Abstract 01/11/20 Orders Only [facility] [address] [place] [address] Provider, Abstract 01/11/[address] [place] [address] Hector Lopez MD Microcytic anemia 12/23/19 Refill [facility] Internal Medicine [facility] [id number] [id number] Yazmin Tenorio, VERONICA 12/23/19 25 Refill [facility] Primary Care [facility] [address] [facility] [address] [place] [address] Hector Lopez MD Type 2 diabetes mellitus with peripheral neuropathy (CMS/HCC) 11/10/19 25 7:00 AM CDT - 11/10/19 25 7:40 AM CDT Surgery [facility] GI Lab S [facility] [address] [place] [address] Ricardo Nix MD ESOPHAGOGASTRODUODENOSCOPY 11/10/19 25 6:58 AM CDT Anesthesia Event [facility] S [facility] [address] [place] [address] Wallace Hunter MD Davis, Cameron P, AA-C 11/10/19 6:06 AM CDT - 11/10/19 25 7:58 AM CDT Hospital Encounter [facility] [address] [place] [address] Ricardo Nix MD Other iron deficiency anemia Discharge Disposition: Home or Self Care 11/10/19 Results Follow-Up [facility] Gastroenterology [facility] [address] [facility] [address] [place] [address] Ricardo Nix MD COLONOSCOPY REPORT, PATHOLOGY 11/05/19 Results Follow-Up [facility] [place] [address] [place] [address] Ricardo Nix MD CBC WITH DIFFERENTIAL, IRON, TIBC, AND PERCENT SATURATION, FERRITIN from Last 3 Months Immunizations Immunization Administration [...] PNEUM OCOCCAL CONJUGATE VACCINE 20-VALENT (PCV20), POLYSACCHARIDE [id number] CONJUGATE, ADJUVANT 0.5 ML (PF) IM 05/16/2022 [...] st Contact Info) Description 02/10/2025 10:00 AM BUSHING PRESS OPERATOR Office Visit [facility] [address] [place] [address] Hector Lopez MD [address] [place] [address] [address] [place] [address] Health Maintenance Due Date Last [...] cancer UPPER ENDOSCOPY REPORT 7:17 AM CDT AK COLONOSCOPY FLX DX W/MICA J SPEC WHEN PFRMD 11/09/2024 7:00 AM CDT Other iron deficiency anemia Screening for colon cancer AK ESOPHAGOGASTRODUODENOSCOP Y TRANSORAL DIAGNOSTIC 11/09/2024 7:00 AM CDT Other iron deficiency anemia Screening for colon cancer POC GLUCOSE Routine 11/09/2024 6:49 AM CDT MAMMO SCREEN BILAT W OR WO CAD Routine 0 09/29/2024 10:55 AM CDT HM DIABETES EYE EXAM Routine 04/15/2024 10:03 AM BUSHING PRESS OPERATOR LIPID PANEL Routine 03/12/2024 2:05 PM BUSHING PRESS OPERATOR Other hyperlipidemia HEMOGLOBIN A1C Routine 03/12/2024 1:42 PM BUSHING PRESS OPERATOR Type 2 diabetes mellitus with peripheral neuropathy (CMS/HCC) MICROALBUMIN/CREATININE RATI O, RANDOM UR Routine 03/14/2023 9:00 AM BUSHING PRESS OPERATOR COLON CANCER SCREEN, STOOL DNA Routine 0 05/04/2022 3:30 PM BUSHING PRESS OPERATOR Screening for colon cancer CERV/VAG CYTOPATH, SUREPATH Routine 08/07/2017 from Last 3 Months or Most Recently Relevant to Health Maintenance Results * (ABNORMAL) POC GLUCOSE (11/09/2024 7:21 AM CDT) Only the most recent of2 resultswithin the time period is included. GLUCOSE POC 149(H) 74 - 99 mg/dL 11/09/2024 7:21 AM CDT [facility] SPECIMEN SOURCE, GLUCOSE POC Whole Blood 11/09/2024 7:21 AM CDT [facility] Blood, whole 11/09/2024 7:21 AM CDT 11/09/2024 7:29 AM CDT Ricardo Nix MD POINT OF CARE TESTING Final Result [facility] CLIA# [id number] 5 [facility] [place] [address] * COLONOSCOPY REPORT (11/09/2024 7:18 AM CDT) Narrative Procedure Note Ricardo Nix MD - 11/09/2024 7:18 AM CDT [facility] Endoscopy Patient Name: Cathi Winters Procedure [...] of Addenda: [address]; [place] [address] Ricardo Nix MD GI PROCEDURE ORDERABLES Snow l Result * PATHOLOGY (11/09/2024 7:18 AM CDT) CASE REPORT Surgical Pathology R eport Case: [id number] Authorizing Provider: Ricardo Nix MD Collected: 11/09/2024 07:18 AM Ordering Location: [facility] [place] Received: 11/09/2024 09:49 AM Pathologist: Sanjeev Ogden MD Specimens: A) - Duodenum, bxs B) - Stomach, bxs 2:56 PM CDT [facility] FINAL DIAGNOSIS A. Duodenum, biopsy: - Small intestinal mucosa with mild chronic inflammation, nonspecific. - No evidence of celiac disease. B. Stomach, biopsy: - Antral and corpus mucosa with mild chronic gastritis. - No intestinal metaplasia or dysplasia. - Negative for Helicobacter pylori. 2:56 PM CDT [facility] [employer] [facility] at 1455 CDT GROSS DESCRIPTION The [...] are submitted in cassette B1. [facility] 5 2:56 PM T [facility] MICROSCOPIC DESCRIPTION The slides are labeled [id number] and Cathi Winters. Sections of the duodenum [...] dysplasia is identified. 5 2:56 PM T [facility] OPERATIVE PROCEDURE 1: ESOPHAGOGASTRODUODENOSCOP Y 2: COLONOSCOPY 5 2:56 PM [facility] CLINICAL INFORMATION A Small bowel Bx's. Rule out sprue (chronic diarrhea and/or Iron deficiency anemia. Small bowel Bx's. Rule out sprue (chronic diarrhea and/or Iron deficiency anemia. Other iron deficiency anemia [D50.8] Screening for colon cancer [Z12.11] D50.8-Other iron deficiency anemia Z12.11-Screening for colon cancer 5 2:56 PM T [facility] COMMENT Special stain, immunohistochemical, and/or in situ hybridization results are interpreted with controls that demonstrate appropriate staining reactions. Note on use of immunohistochemistry reagents and in situ hybridization probes: These tests were developed and their performance characteristics determined by [facility], Department of Laboratory Medicine. It has [...] part or completely in the following laboratories: [facility], CLIA #[id number] [facility] [place], [place] [address] [place] [address], CLIA #[id number] [address] [place] [address] [facility]/[place], [place] #[id number] [address] [place] [address] This report was created with the [employer] voice-activated dictation system. Inherent to this system is the possibility of syntax, grammar, punctuation and other errors that could impact the interpretation of the report. If there are interpretative questions about aspects of this report, please contact the performing pathologist. 2:56 PM CDT [facility] Tissue ENTIRE STOMACH / Unknown Collection / Unknown 11/09/2024 7:18 AM CDT 11/09/2024 9:49 AM CDT Comment:Small bowel Bx's. Ru le out sprue (chronic diarrhea and/or Iron deficiency anemia. Tissue specimen (specimen) ENTIRE STOMACH / Unknown 11/09/2024 7:18 AM CDT 11/09/2024 9:49 AM CDT Comment:Gastritis, r/o h.pyl drea Ricardo Nix MD PATHOLOGY/CYTOLOGY ORDERABLE S Final Result [facility]# [id number] [address] [facility] [place] [address] * UPPER ENDOSCOPY REPORT (11/09/2024 7:17 AM CDT) Narrative Procedure Note Ricardo Nix MD - 11/09/2024 7:17 AM CDT [facility] Endoscopy Patient Name: Cathi Winters Procedure [...] signed electronically. Number of Addenda: [address]; [place] [address] Ricardo Nix MD GI PROCEDURE ORDERABLES Snow l Result * MAMMO SCREEN BILAT W OR WO CAD (09/29/2024 10:55 AM CDT) Anatomical Region Laterality Modality Breast Bilateral Mammography us Abstract Provider MAMMO ORDERABLES Edited Result - Final * DIABETES EYE EXAM (04/15/2024 10:03 AM BUSHING PRESS OPERATOR) Hector Lopez MD HEALTH MAINTENANCE Final Resu lt Performing Organization Address City/[facility]/ZIP Co de Phone Number [facility] CLIA# [id number] [address] [facility] [address] [place] [id number] * (ABNORMAL) LIPID PANEL (03/12/2024 2:05 PM BUSHING PRESS OPERATOR) CHOLESTEROL 206(A) 0 - 200 mg/dL EXTERNAL LAB TRIGLYCERIDES, DIRECT 175(A) 0 - 150 mg/dL EXTERNAL LAB HDL CHOLESTEROL 60 40 - 60 mg/dL EXTERNAL LAB LDL CHOLESTEROL 111 <130 mg/dL EXTERNAL LAB Blood 03/12/2024 2:05 PM BUSHING PRESS OPERATOR Hector Lopez MD CHEMISTRY ORDERABLES Edited R esult - Final Performing Organization Address [facility] Co de Phone Number EXTERNAL LAB * (ABNORMAL) HEMOGLOBIN A1C (03/12/2024 1:42 PM BUSHING PRESS OPERATOR) HEMOGLOBIN A1C 8.5(A) <5.7 % EXTERNAL LAB Blood 03/12/2024 1:42 PM BUSHING PRESS OPERATOR Hector Lopez MD CHEMISTRY ORDERABLES Final Re sult Performing Organization Address [facility] Co de Phone Number EXTERNAL LAB * MICROALBUMIN/CREATININE RATIO, RANDOM UR (03/14/2023 9:00 AM BUSHING PRESS OPERATOR) ABSTRACTED MICROALBUMIN,UR INE 9.7 [facility] ABSTRACTED CREATININE, URINE [facility] ABSTRACTED MICROALBUMIN/CR EATININE RATIO, URINE [facility] Urine URINE SPECIMEN OBTAINED BY CLEAN CATCH PROCEDURE / Unknown 03/14/2023 9:00 AM BUSHING PRESS OPERATOR Hector Lopez MD URINE ORDERABLES Final Result [facility] INTERNAL MED [facility] CLIA# [id number] [address] [place] [address] * COLON CANCER SCREEN, STOOL DNA (05/04/2022 3:30 PM BUSHING PRESS OPERATOR) COLOGUARD RESULT Negative Negative [employer] Comment: NEGATIVE TEST RESULT. A negative Cologuard [...] Herrera. et al, N Engl J Med 2014;370(14):2128-9784) The normal value (reference range) for this assay is negative. COLOGUARD RE-SCREENING RECOMMENDATION: Periodic colorectal cancer screening is an important part of preventive healthcare for asymptomatic individuals at average risk for colorectal cancer. Following a negative Cologuard result, the [employer] Cancer Society and U.S. Multi-Society Task Force screening guidelines recommend a Cologuard re-screening interval of 3 years. References: [employer] Society Guideline for Colorectal Cancer Screening: https://www.cancer.org/cancer/hdqef-xaspeu-bxxcql/wjvbpqywq-tzttekslt-dyyhbmu/ac s-rec ommendations.html.; Brandon SCHNEIDER, Riley NEFF, Luca AdamsK, Colorectal Cancer Screening: Recommendations for Physicians and Patients from the U.S. Multi-Society Task Force on Colorectal Cancer Screening , Am J Gastroenterology 2017; 112:3609-3747. TEST DESCRIPTION: Composite algorithmic analysis of stool [...] Jones et al, N Engl J Med 2014;370(14):0253-8240.) Cologuard may produce a false negative or false positive result (no colorectal cancer or precancerous polyp present at colonoscopy follow up). A negative Cologuard test result does not guarantee the absence of CRC or advanced adenoma (pre-cancer). The current Cologuard screening interval is every 3 years. (Vincent[employer] Cancer Society and U.S. Multi-Society Task Force). Cologuard performance data in a 10,000 patient pivotal study using colonoscopy as the reference method can be accessed at the following location: www.THINK360/results. Additional description of the Cologuard test process, warnings and precautions can be found at www.cologuard.com. Stool STOOL SPECIMEN / Unknown 05/04/2022 3:30 PM BUSHING PRESS OPERATOR 05/07/2022 8:02 PM BUSHING PRESS OPERATOR us Hector Lopez MD BODY FLUIDS AND STOOLS Final Result [facility] CLIA # [id number] [address] , [address] [place] [address] * CERV/VAG CYTOPATH, SUREPATH (08/07/2017) Genital SWAB OF ENDOCERVIX / Unknown us Abstract Provider PATHOLOGY/CYTOLOGY ORDERABLES Final Result Performing Organization Address City/State/[facility] Co de Phone Number [facility] INTERNAL MEDICINE [id number] [address] [place], [place] [id number] from Last 3 Months or Most Recently Relevant to Health Maintenance Insurance R [facility] CHOICE [id number] RX [employer] RX Member Subscriber Plan / Payer (Ef fective 2021-Present) Name:Cathi Winters Relation to Subscriber:Not on file Name:Cathi Winters Subscriber ID:Not on file Date of :1965 (Work) Payer ID:Not on file Type:RX Commercial Address: [address] Advance Directives For more information, please contact: [phone] * Full Code (Latest Code Status on File) Date Activated Date Inactivated Comments 11/09/2024 6:39 AM 11/09/2024 10:03 AM Care Teams Design Engineer Agricultural Equipment Relationship Specialty Start Date End Date Hector Lopez MD PCP - General Internal Medicine 07/03/16
--- OUTSIDE RECORDS SUMMARY | 2025-02-04 11:30 | XMS_ITS | Encounter Summary ---
Author Organization [facility] Address [address] [place] [address] Care Team Providers Care Surfacing Machine Operator Name Role Phone Hector Lopez MD Primary Care Provider [phone] Encounter Details Date Type Department Care Team (Late st Contact Info) Description 02/02/2025 External Device Data STL ABSTRACTION Provider, Abstract [...] (Late Contact Info) Description 02/10/2025 10:00 AM NATURE PHOTOGRAPHER Office Visit [facility] [address] [place] [address] Hector Lopez MD [address] [place] [address] [address] [place] [address] documented as of this encounter Visit Diagnoses Not on filedocumented in this encounter Care Teams Surfacing Machine Operator Relationship Specialty Start Date End Date Hector Lopez MD PCP - General Internal Medicine 07/03/16 documented as of this encounter
--- OUTSIDE RECORDS SUMMARY | 2025-02-04 11:30 | XMS_ITS | Clinical Summary ---
Author Organization [facility] Address [address] [facility] [place] [address] Care Team Providers Care Marine Extension Agent Name Role Phone Unavailable Primary Care Provider Unavailabl e Source Comments [facility],non-owned Affiliates and Associated Physician Practices is amultiple site organization consisting of ambulatory clinics and hospital sitesin [place], [place], [place] and [place]. This disclosure is being madepursuant to the Care Everywhere program and may not contain all information available regarding this patient. Last updated 17.[facility] Social History Tobacco Use Types Packs/Day Years Used Date Smoking Tobacco: Never Assessed Comments Unknown Sex and Gender Information Value Date Recorded Sex Assigned at Not on file Legal Sex Female 6:19 AM SKIDDER LEVER OPERATOR Gender Identity Not on file Sexual [...] patient's age to complete this topic Insurance [facility]
[2025-02-04 11:43] LABS: Thyroid Stimulating Hormone 2.020 uIU/mL (0.465-4.680)
[2025-02-04 12:06] LABS: Vitamin B12 327.0 pg/mL (239-931)
== END 2025-02-04 10:47 | disposition home or self-care (01) ==
PROVIDERS: PCP Internal Medicine; Visit Provider Internal Medicine
DX: E55.9 Vitamin D deficiency, unspecified (principal); E53.8 Deficiency of other specified B group vitamins; E78.49 Other hyperlipidemia; E11.42 Type 2 diabetes mellitus with diabetic polyneuropathy
CPT/HCPCS: 36415; 80053; 80061; 82306; 82607; 83036; 84443; 85025

== ENCOUNTER 2025-03-08 10:26 | Outpatient (CLI) | payer OTHER, SELFPAY ==
[2025-03-08 10:37] VITALS: BP 121/70; PULSE 80; RESP 14; TEMP 36.5; O2SAT 97; BMI 33.0
[2025-03-08] MEDS: CYANOCOBALAMIN INJ 1,000 MCG/ML VIAL 1000 MCG IM (10:39)
== END 2025-03-08 10:27 | disposition home or self-care (01) ==
PROVIDERS: PCP Internal Medicine; Visit Provider Internal Medicine
DX: E53.8 Deficiency of other specified B group vitamins (principal)
CPT/HCPCS: 96372; J3420